=== PATIENT | female | born 1965 | race Caucasian/White ===

== ENCOUNTER 2024-07-26 19:26 | Emergency (ER) | payer MEDICAID, SELFPAY ==
--- NOTE | ~2024-07-26 | XR_ITS ---
CHEST RADIOGRAPH, PA AND LATERAL CLINICAL HISTORY: Cough wheezing x 1 day . COMPARISON: None available TECHNIQUE: PA and lateral views of the chest. FINDINGS The cardiomediastinal silhouette is unremarkable. 11 mm asymmetry within the right middle lobe for which cross-sectional imaging (noncontrast enhanced CT examination of the chest) is recommended for further evaluation. This may simply represent a calcified granuloma, however it is irregular in contour. The bilateral lung ibrahim are otherwise unremarkable. IMPRESSION: No focal infiltrate or effusion. 11 mm asymmetry within the right middle lobe for which cross-sectional imaging (noncontrast enhanced CT examination of the chest) is recommended for further evaluation. Reviewed, dictated and finalized at location A. IMPRESSION: No focal infiltrate or effusion. 11 mm asymmetry within the right middle lobe for which cross-sectional imaging (noncontrast enhanced CT examination of the chest) is recommended for further e valuation.
--- NOTE | 2024-07-26 19:28 | ED.URI ---
HPI - URI/Sore Throat General Chief Complaint: Upper Respiratory Infection Stated Complaint: cough/congestin Time Seen by Provider: 07/26/24 19:36 Source: patient, RN notes reviewed and old records reviewed Mode of arrival: ambulatory Limitations: no limitations History of Present Illness HPI Narrative: 59 presents the with complaints cough, congestion, shortness of breath since yesterday. History of asthma. Ex-smoker. States that she used her inhaler at 10:00 a.m. this morning. No other treatment prior to arrival Related Data Home Medications ?Medication ?Instructions ?Recorded ?Confirmed ?Last Taken ?Type albuterol sulfate 90 mcg/actuation inhalation 07/26/24 Unknown History aerosol inhaler aspirin 81 mg chewable tablet 07/26/24 Unknown History metformin 500 mg tablet,extended mg PO 07/26/24 Unknown History release 24 hr Allergies Allergy/AdvReac Type Severity Reaction Status Date / Time adhesive tape Allergy Unknown Unknown Verified 07/26/24 19:38 codeine Allergy Unknown Unknown Verified 07/26/24 19:38 diphenhydramine (From Allergy Unknown Unknown Verified 07/26/24 19:38 Benadryl) Review of Systems Review of Systems: All systems reviewed & are unremarkable except as noted in HPI and below Constitutional: Constitutional: Reports no additional constitutional complaints ENT: Reports system reviewed and no additional complaints, except as documented Cardiovascular: Cardiovascular: Reports no additional cardiovascular complaints, Denies chest pain and Denies dyspnea Respiratory: Respiratory: Reports as per HPI, Denies chest congestion, Reports cough, Reports dyspnea and Reports wheezing Musculoskeletal: Musculoskeletal: Reports no additional musculoskeletal complaints Integumentary/Breasts: Skin/Breast: Reports system reviewed and no additional complaints, except as docu PMFSH Comments At the time of my signature, I reviewed and agree with the nursing past medical, surgical, social, and family history. There is no relevant family history pertinent to the patient complaint. Exam Const: General: cooperative, healthy appearing, comfortable, no acute distress, well developed, alert and well nourished Nutritional Appearance: well nourished Orientation/consciousness: patient oriented x3 Limitations: no limitations HENMT: Head: normal to inspection Ears: hearing grossly normal bilaterally, external ears normal, TM's normal bilaterally, EAC's normal, mastoids normal and no periauricular adenopathy Eyes: General: appearance normal, both eyes and all related structures Alignment and Position: alignment normal Neck: Neck: normal visual inspection, full ROM, no lymphadenopathy and no meningeal signs Chest: Chest palpation & inspection: normal inspection of the chest Resp: Effort & Inspection: normal respiratory effort and able to speak in complete sentences Auscultation: no crackles, no rales, no rhonchi and wheezes expiratory wheezes and throughout Cardio: Rate: regular rate Skin: General skin exam: normal color and no rashes or lesions noted Neuro: General: patient oriented x3, gait normal, moves all extremities and no meningeal signs Cognition (Neuro): normal cognition Speech: normal speech Gait exam (Neuro): Normal gait present Extrem: General: normal to inspection, full ROM, capillary refill normal and normal gait Psych: Appearance: grossly normal and well kempt Mental Status: mental status grossly normal Speech and movement: Normal speech and movement present and Clear speech present Affect: normal affect Attitude: cooperative Course Course Emergency Course: x-ray done, breathing treatment done, improved saturation. patient breathing, coughing controlled after breathing treatment. States that she does feel better. Wheezing improved, now lung ibrahim are Mostly clear with mild expiratory wheezing throughout. Level of Care: Express Care Visit Vital Signs Vital signs: Vital Signs Temperature 97.8 F 07/26/24 19:41 Pulse Rate 108 H 07/26/24 19:41 Respiratory Rate 16 07/26/24 19:41 Blood Pressure 122/66 07/26/24 19:41 Pulse Oximetry 96 07/26/24 19:41 Oxygen Delivery Room Air 07/26/24 19:41 Temperature 97.8 F 07/26/24 19:41 Pulse Rate 98 07/26/24 20:18 Respiratory Rate 20 07/26/24 20:18 Blood Pressure 122/66 07/26/24 19:41 Pulse Oximetry 99 07/26/24 20:18 Oxygen Delivery Room Air 07/26/24 19:41 Reviewed MDM - URI/Sore Throat MDM Narrative Medical decision making narrative: Patient sitting in exam room. Cough, wheezing since yesterday. Did use her inhaler 1 time today. No other treatment prior to arrival denies fevers, chest pain. Patient with a history of asthma. Ex-smoker Patient with no acute findings. Incidental finding of a mass in the right lower lobe, explained to the patient that she needs close follow-up with primary for further evaluation, recommending a CT scan. We also discussed signs and symptoms of proceed to the emergency room which she verbalized understanding. Patient reports that she is out of nebulizer medication. Will prescribed as well as prednisone. Patient did receive her 1st dose of prednisone in clinic Discharge instructions reviewed with patient, as well as provided in writing per nursing staff. The instructions also include specific and strict return/GO TO THE ER as well as f/u information. All questions have been answered, and the patient deny any further questions with discharge and discharge plan. Some parts of this dictation were generated by voice recognition software and may contain typographical and/or grammatical inaccuracies. Differential Diagnosis Differential diagnosis: Likely upper respiratory infection, otitis media, sinusitis, viral infection and bronchitis Imaging Data Radiologist's impression: CHEST RADIOGRAPH, PA AND LATERAL CLINICAL HISTORY: Cough wheezing x 1 day . COMPARISON: None available TECHNIQUE: PA and lateral views of the chest. FINDINGS The cardiomediastinal silhouette is unremarkable. 11 mm asymmetry within the right middle lobe for which cross-sectional imaging (noncontrast enhanced CT examination of the chest) is recommended for further evaluation. This may simply represent a calcified granuloma, however it is irregular in contour. The bilateral lung ibrahim are otherwise unremarkable. IMPRESSION: No focal infiltrate or effusion. 11 mm asymmetry within the right middle lobe for which cross-sectional imaging (noncontrast enhanced CT examination of the chest) is recommended for further evaluation. Critical Care Time Critical Care Time Critical Care Time: No Discharge Plan Discharge Clinical Impression: Asthma exacerbation, Abnormal chest x-ray Patient Disposition: Home, Self-Care Condition: Stable Instructions: Antibiotic Form, Asthma (ED) Additional Instructions: Please follow-up with your primary care provider within the next 2-3 days. On x-ray it is recommended you follow-up and get a chest CT for an abnormal finding in the right lower lobe, concern for granuloma, scar tissue versus cancer. this needs to be further evaluated as soon as possible Patient Language: [place] Prescriptions: New albuterol sulfate 0.63 mg/3 mL solution for nebulization 0.63 mg inhalation Q6H Qty: 75 0RF prednisone 20 mg tablet See Rx Instructions .Route .COMPLEX Qty: 13 0RF Rx Instructions: Take 40 mg daily for 4 days, 20 mg daily for 5 days No Action aspirin 81 mg tablet,chewable albuterol sulfate 90 mcg/actuation HFA aerosol inhaler INHALATION metformin 500 mg tablet extended release 24 hr PO Follow-up/Referrals: UNKNOWN,DOCTOR [Non-Staff] - Stand Alone Forms: Work/School Release IP Time of Disposition: 20:28
--- OUTSIDE RECORDS SUMMARY | 2024-07-26 19:33 | XMS_ITS | Referral Summary ---
Author Organization [facility] Address [address] [place] [address] Care Team Providers Care Learn To Swim Instructor Name Role Phone Jose Yu MD Primary Care Provider [phone] Claudia Parisi DOUBLE CORNER CUTTER Unavailable Encounters Date Type Department Care Team Description 07/06/2024 Telephone [facility] Primary Care at [address] [place] [phone] Jose Yu MD HATTIE Questions 07/06/2024 Orders Only [facility] Cardiology [address] [place] [phone] Claudia Franklin 07/05/2024 7:27 PM CDT - 07/06/2024 3:34 PM CDT Emergency [facility] Acute Medicine [address] [place] [phone] Domenic Lucero MD Avagyan, Juletta, MD Sinha, Chandni, MD Chest pain, unspecified type (Primary Dx) Discharge Disposition: Discharge to home or self care 07/05/2024 1:52 PM CDT - 07/05/2024 11:59 PM CDT Hospital Encounter [facility] Emergency, Room R Discharge Disposition: Discharge to home or self care 06/02/2024 Telephone [facility] Primary Care at [address] [place] [phone] Jose uY MD 05/26/2024 3:11 PM MAINTENANCE APPRENTICE - 05/26/2024 11:59 PM MAINTENANCE APPRENTICE Hospital Encounter [facility] Imaging Center [address] [place] [address] History of nicotine use Discharge Disposition: Discharge to home or self care 05/26/2024 3:11 PM MAINTENANCE APPRENTICE - 05/26/2024 11:59 PM MAINTENANCE APPRENTICE Hospital Encounter [facility] Respiratory [address] [place] [address] Mild persistent asthma without complication Discharge Disposition: Discharge to home or self care 05/14/2024 [facility] Follow up phone call [facility] Surgery Care [address] [place] [address] Ne Johnson 05/10/2024 Telephone [facility] Primary Care at [place] [address] [facility] [address] [place] [phone] Jose Yu MD HATTIE Questions 05/08/2024 1:00 AM MAINTENANCE APPRENTICE - 05/10/2024 2:55 PM MAINTENANCE APPRENTICE Hospital Encounter [facility] IMU [address] [place] [address] Josefina Barnett MD [facility], DO Bre Porter Veronica O., MD Acute chest pain (Primary Dx); Newly diagnosed diabetes (HCC) Discharge Disposition: Discharge to home or self care from Last 3 Months Allergies Active Allergy Reactions Criticality Noted Date Comments Codeine Anaphylaxis High 03/20/2015 Difficulty breathing; swelling everwhere Diphenhydramine Hives Medium 03/20/2015 Other Rash Medium 02/09/2018 Adhesive from plastic tape, anesthesia time monitor; And red irritated skin Tramadol Swelling Medium Medications polyethylene glycol (MIRALAX) 17 gram/dose bulk powder Take 1-2 cap fulls nightly for constipation management. 595 g 3 03/06/20 23 Active metFORMIN XR (GLUCOPHAGE XR) 500 mg 24 hr tabletIndicati ons:Newly diagnosed diabetes (HCC) Take 2 tablets (1,000 mg total) by mouth 2 (two) times a day 360 tablet 1 06/30/19 24 Active blood-glucose meter kit 1 kit 2 (two) times a day 1 kit 11/25/19 24 Active blood glucose diagnostic (glucose blood) strip Use on test strip when checking blood glucose levels 100 each 11 11/25/19 24 025 Active OneTouch Delica Plus Lancet 33 gauge misc Inject 1 Lancet into the skin daily 100 each 1 11/25/19 24 Active budesonide-for moteroL (SYMBICORT) 80-4.5 mcg/actuation inhaler Inhale 2 puffs 2 (two) times a day Rinse mouth with water after use. Do not swallow. 3 each 3 03/01/20 24 Active albuterol HFA (PROVENTIL HFA,VENTOLIN HFA,PROAIR HFA) 90 mcg/actuation inhaler Inhale 1-2 puffs every 4 (four) hours as needed for wheezing or shortness of breath 1 each 03/01/20 24 Active empagliflozin (Jardiance) 25 mg tablet Take 1 tablet (25 mg total) by mouth daily 30 tablet 05/10/19 25 Active atorvastatin (LIPITOR) 40 mg tablet Take 1 tablet (40 mg total) by mouth daily 30 tablet 1 05/10/[address] (CYMBALTA) 20 mg capsule Take 1 capsule (20 mg total) by mouth 2 (two) times a day 120 capsule 05/10/19 25 Active montelukast (SINGULAIR) 10 mg tablet Take 1 tablet (10 mg total) by mouth nightly 30 tablet 1 05/10/19 25 Active aspirin 81 mg chewable tablet Take 1 tablet (81 mg total) by mouth daily 30 tablet 1 05/11/19 25 Active omeprazole (PriLOSEC) 40 mg capsule Take 1 capsule (40 mg total) by mouth daily 30 capsule 05/10/19 25 Active lidocaine (LIDODERM) 5 %Indications:T orticollis, acute Place 1 patch on the skin daily Apply over area of maximal intensity pain. Remove & discard patch within 12 hours or as directed by . Collaborating physician Baldomero Wilkinson MD 30 patch 06/30/19 24 025 Discontin ued(Stop Taking at Discharge ) OneTouch Ultra2 Meter misc USE TO CHECK GLUCOSE TWICE DAILY 11/25/19 24 025 Discontin ued(Stop Taking at Discharge ) Active Problems Problem Noted Date Diagnosed Date Chest pain, unspecified type 07/05/2024 Acute chest pain 05/08/2024 Left sided numbness 09/24/2023 Diabetic ketoacidosis associ ated with type 2 diabetes mellitus 09/20/2023 Primary hypertension 09/20/2023 Sinus tachycardia 09/20/2023 Hyperlipidemia associated with type 2 diabetes m ellitus 09/20/2023 Assessment & Plan (03/01/2024 1:11 PM MAINTENANCE APPRENTICE): Lab Results Component Value Date CHOL 123 09/24/2023 CHOL 140 07/18/2023 CHOL 181 07/01/2023 Lab Results Component Value Date HDL 54 09/24/2023 HDL 53 07/18/2023 HDL 53 07/01/2023 Lab Results Component Value Date LDLCALC 56 09/24/2023 LDLCALC 71 07/18/2023 LDLCALC 110 07/01/2023 Lab Results Component Value Date TRIG 63 09/24/2023 TRIG 81 07/18/2023 TRIG 92 07/01/2023 No results found for: POCCHDLR No results found for: POCNONHDL No results found for: POCCHLPL Recheck lipid panel now with tsh Moderate persistent asthma with exacerbation Neurological deficit, transient 07/19/2023 Cerebrovascular accident (CV A) due to embolism of precerebral artery 07/19/2023 Cervical spinal stenosis 07/18/2023 Class 2 obesity due to exces s calories with body mass index (BMI) of 35.0 to 35.9 in adult 06/30/2023 Assessment & Plan (03/01/2024 1:12 PM MAINTENANCE APPRENTICE): Wt Readings from Last 3 Encounters: 03/01/24 74.9 kg (165 lb 1.6 oz) 09/24/23 72.6 kg (160 lb 0.9 oz) 09/24/23 72.6 kg (160 lb 0.9 oz) BMI Readings from Last 3 Encounters: 03/01/24 35.72 kg/m 09/24/23 34.64 kg/m 09/24/23 34.64 kg/m Not at goal of bmi <30 Continue diet and exercise BMI Follow-up includes: nutrition counseling and exercise counseling. Assessment & Plan (07/18/2023 3:25 AM CDT): Body mass index is 35.05 kg/m . - nutrition consultation Assessment & Plan (06/30/2023 4:13 PM MAINTENANCE APPRENTICE): Wt Readings from Last 3 Encounters: 06/30/23 73.9 kg (162 lb 14.4 oz) 06/26/23 71.7 kg (158 lb) 06/25/23 71.7 kg (158 lb) BMI Readings from Last 3 Encounters: 06/30/23 35.24 kg/m 06/26/23 34.19 kg/m 06/25/23 34.19 kg/m Not at goal of bmi <30 Continue diet and exercise BMI Follow-up includes: nutrition counseling and exercise counseling. Morbid obesity 06/30/2023 Irritable bowel syndrome with constipation 03/06 History of chronic gastritis 03/06/2023 History of gastric ulcer 03/06/2023 History of colonoscopy with polypectomy 03/04/20 Depression 11/22/2022 Assessment & Plan (07/18/2023 3:20 AM CDT): We will continue patient's duloxetine 20 mg daily. Acute asthma exacerbation 11/21/2022 Assessment & Plan (12/31/2022 1:23 PM CDT): Less likely asthma exacerbation Not much improvement with albuterol/symbicort Will evaluate from cardiac perspective Posisble hx of chf If normal may need pulm eval Torticollis, acute 10/05/2022 Type 2 diabetes mellitus with hyperlipidemia Assessment & Plan (03/01/2024 1:13 PM MAINTENANCE APPRENTICE): Lab Results Component Value Date HGBA1C 8.3 03/01/2024 HGBA1C 7.5 (H) 09/24/2023 HGBA1C 7.7 06/30/2023 Lab Results Component Value Date LDLCALC 56 09/24/2023 CREATININE 0.75 09/26/2023 Continue current regimen Increase jardiance to 25 mg every day Assessment & Plan (07/18/2023 3:18 AM CDT): Last HbA1c: 7.7; BG 140's - Pt placed on SSI - Lantus dose none - DM educator consulted - diet and nutrition discused w/ pt. Stressed importance of exercise - DM complications present on admission: HLD, CAD, cardiomyopathy Assessment & Plan (06/30/2023 4:16 PM MAINTENANCE APPRENTICE): Lab Results Component Value Date HGBA1C 7.7 06/30/2023 HGBA1C 7.1 (H) 12/26/2022 HGBA1C 7.1 06/13/2022 Lab Results Component Value Date LDLCALC 99 03/18/2022 CREATININE 0.69 06/25/2023 Not at goal at this time - worsening Continue jardiance 10 mg every day, increase metformin to 1000 mg bid 24hr tabs Likely some issues with compliance Last metformin refill was 05/2022 and 02/2023 Assessment & Plan (01/16/2023 8:28 AM CDT): Lab Results Component Value Date HGBA1C 7.1 (H) 12/26/2022 HGBA1C 7.1 06/13/2022 HGBA1C 6.8 (H) 03/18/2022 Lab Results Component Value Date LDLCALC 99 03/18/2022 CREATININE 0.80 01/07/2023 Not at goal at this time Continue jardiance 10 mg every day, metformin 500 mg bid 24hr tabs Assessment & Plan (12/31/2022 1:16 PM CDT): Lab Results Component Value Date HGBA1C 7.1 (H) 12/26/2022 HGBA1C 7.1 06/13/2022 HGBA1C 6.8 (H) 03/18/2022 Lab Results Component Value Date LDLCALC 99 03/18/2022 CREATININE 0.85 12/26/2022 Not at goal at this time Elevated finger stick today in the office Assessment & Plan (06/13/2022 1:21 PM MAINTENANCE APPRENTICE): Lab Results Component Value Date HGBA1C 6.8 (H) 03/18/2022 Lab Results Component Value Date LDLCALC 99 03/18/2022 CREATININE 0.75 05/12/2022 Recheck a1c today - continue metformin 500 mg xr for now Mild persistent asthma without complication 02/26 Assessment & Plan (07/18/2023 3:19 AM CDT): Patient not on any inhaler medications at this time, feels well-controlled. Sensorineural hearing loss (SNHL) of both ears 0 07/02/2021 Assessment & Plan (07/02/2021 1:56 PM MAINTENANCE APPRENTICE): Hearing test - [facility] Coronary artery disease of n ative artery of [place] heart with stable angina pectoris 08/30/2020 Assessment & Plan (07/18/2023 3:25 AM CDT): Last TTE done on 12/2022 showed EF of 67; CXR showed mild atelectasis versus infiltrates noted; ECG: Normal. No history or signs of atrial fibrillation. In 2017 coronary angiography was performed, mild nonischemic cardiomyopathy was noted at that time with an ejection fraction 40%. It is suspected that microvascular angina was secondary to the cardiomyopathy. - Medications: Patient is only taking diabetic medications such as Jardiance, metoprolol, and pain medications such as meloxicam and cyclobenzaprine - monitoring I/O's - Pt on telemetry at this time - medically maximize patient, aspirin 81 mg, Lipitor 80 mg, metoprolol XL 25 mg daily, continue Jardiance and metformin at discharge. Assessment & Plan (06/30/2023 4:04 PM MAINTENANCE APPRENTICE): Continue ASA, cardio follow up Former tobacco use 08/30/2020 Assessment & Plan (07/18/2023 3:19 AM CDT): Twenty-five pack year history, quit in 2018. Assessment & Plan (03/13/2022 12:37 PM MAINTENANCE APPRENTICE): Discussed smoking cessatin - pt ready to quit. Will start lexapro today for depression and may need to add wellbutrin as well for smoking cessation in the fuiture Dilated cardiomyopathy 08/30/2020 Assessment & Plan (07/18/2023 3:19 AM CDT): Continue as planned under coronary artery disease. Assessment & Plan (06/30/2023 4:05 PM MAINTENANCE APPRENTICE): Normal TTE recently CONCLUSIONS: Normal left ventricular size. Normal left ventricular wall thickness. Normal left ventricular diastolic function. Ejection fraction is measured at 67 %. Normal Doppler with normal valvular structure and function. Assessment & Plan (01/16/2023 8:29 AM CDT): Normal TTE recently CONCLUSIONS: Normal left ventricular size. Normal left ventricular wall thickness. Normal left ventricular diastolic function. Ejection fraction is measured at 67 %. Normal Doppler with normal valvular structure and function. Assessment & Plan (03/13/2022 12:39 PM MAINTENANCE APPRENTICE): Unsure accuracy of this dx - was following with cardio - normal echo, cardio said to come back in 1 year, would have been due 6 months a go but as per last cardio note, no concerns Resolved Problems Problem Noted Date Diagnosed Date Resolved Date Physical exam, annual 06/30/20232023 Slow transit constipation 03/06/2023 Elevated alkaline phosphatase level 03/06/2023 07/18/2023 Pharyngoesophageal dysphagia 03/06/2023 07/18/2023 Generalized abdominal pain 03/06/2023 0 07/18/2023 Family history of colon cancer 01/07/2023 07/18/2023 Personal history of colonic polyps 01/07/2023 07/18/2023 Encounter for screening colonoscopy 01/07/2023 07/18/2023 Pneumonia due to infectious organism, unspecified laterality, unspecified part of lung 12/26/2022 07/18/2023 Community acquired pneumonia of left lower lobe of lung 12/26/2022 07/18/2023 Asthma exacerbation 11/21/2022 07/18/19 Acute bronchitis 11/21/2022 07/18/2023 Musculoskeletal chest pain 11/20/2022 0 07/18/2023 Tenderness of back 06/13/2022 Current mild episode of beatrice r depressive disorder 03/13/2022 07/18/2023 Assessment & Plan (03/13/2022 12:38 PM MAINTENANCE APPRENTICE): Patient reiterated no suicidal thoughts at this time; take medication as directed; contact 911 and go to the ER if becomes suicidal; discussed side effects of medication with patient; encouraged healthy diet and exericise; encouraged patient to see a counselor Will restart er on lexapro was previously on 5, will increase to 10- mg now and have her follow up in 3 months Snoring 03/13/2022 07/18/2023 Assessment & Plan (03/13/2022 12:39 PM MAINTENANCE APPRENTICE): Should call Dr. Clifton's office back for follow up Chronic maxillary sinusitis 07/02/2021 07/18/2023 Assessment & Plan (07/02/2021 1:53 PM MAINTENANCE APPRENTICE): Doxycycline twice daily for 10 days Flonase 2 sprays into each nostril while looking down over the sink, do not sniff in or blow nose after use for at least 30 minutes daily Otalgia of right ear 07/02/2021 024 Assessment & Plan (07/02/2021 1:53 PM MAINTENANCE APPRENTICE): Doxycycline twice daily for 10 days Flonase 2 sprays into each nostril while looking down over the sink, do not sniff in or blow nose after use for at least 30 minutes daily Dental contact information provided TMJ discussed and Handout provided Chest discomfort 08/30/2020 07/18/2023 Primary osteoarthritis of right knee 08/22/2020 07/18/2023 Immunizations Immunization Administration Dates Next Due Influenza, Quadrivalent, Spl it, Intramuscular 02/06/2015 Influenza, Quadrivalent, Spl it, Preservative Free, Intramuscular 01/16/2023,01/26/2018 Influenza, Unspecified 02/14/2022,2021(Deferred: Patient Refused),06/26/2021(Deferred: Patient Refused) Moderna SARS-CoV-2 Monovalen t Vaccination (12+ YRS) 08/01/2020,06/14/2020 Tdap 02/20/2015 Social History Tobacco Use Types Packs/Day Years Used Date Smoking Tobacco: Former Cigarettes 1 25 0 09/03/1992 - 09/03/2017 Smokeless Tobacco: Never Tobacco Cessation:Counseling Given: Not Answered Alcohol Use Standard Drinks/Week Comments Never 0 (1 standard drink = 0.6 oz pur e alcohol) [facility] Utilities Answer Date Recorded In the past 12 months has e electric, gas, oil, or water company threatened to shut off services in your home? No 09/25/2023 Social Connection and Isolat ion Panel [NHANES] Answer Date Recorded In a typical week, how many times do you talk on the phone with family, friends, or neighbors? More than three times a week 09/25/2023 How often do you get togethe r with friends or relatives? Three times a week 09/25/2023 How often do you attend chur ch or christian services? Never 09/25/2023 Do you belong to any clubs o r organizations such as confucianism groups, unions, fraternal or athletic groups, or school groups? No 09/25/2023 How often do you attend meet ings of the clubs or organizations you belong to? Never 09/25/2023 Are you , , di vorced, , never , or living with a partner? Living with partner 09/25/2023 AUDIT-C Answer Date Recorded Q1: How often do you have a drink containing alcohol? Never 07/05/2024 Q2: How many drinks containi ng alcohol do you have on a typical day when you are drinking? Patient does not drink Q3: How often do you have si x or more drinks on one occasion? Never 07/05/2024 Overall Financial Resource Strain (CARDIA) Answe r Date Recorded How hard is it for you to pa y for the very basics like food, housing, medical care, and heating? Not hard at all 09/25/2023 PHQ-2 Answer Date Recorded PHQ-2 Total Score (If total score is 3 or more points, staff should administer the PHQ-9) 0 03/01/2024 Hunger Vital Sign Answer Date Recorded Within the past 12 months, y ou worried that your food would run out before you got the money to buy more. Never true 09/25/19 24 Within the past 12 months, t he food you bought just didn't last and you didn't have money to get more. Never true 09/25/2023 PRAPARE - Transportation Answer Date Re corded In the past 12 months, has l ack of transportation kept you from medical appointments or from getting medications? No 08/28 In the past 12 months, has l ack of transportation kept you from meetings, work, or from getting things needed for daily living? No 09/25/2023 Housing Stability Vital Sign Answer Gonzalo e Recorded In the last 12 months, was t here a time when you were not able to pay the mortgage or rent on time? No 07/18/2023 In the last 12 months, how many places have you lived? 2 07/18/2023 In the last 12 months, was t here a time when you did not have a steady place to sleep or slept in a half-way (including now)? No 07/18/2023 Housing Stability Vital Sign Answer Gonzalo e Recorded In the last 12 months, was t here a time when you were not able to pay the mortgage or rent on time? No 09/25/2023 In the past 12 months, how m any times have you moved where you were living? 0 09/25/2023 At any time in the past 12 m [facility], were you homeless or living in a half-way (including now)? No 09/25/2023 Personal Safety Answer Date Recorded Have you ever been in or are you currently in a harmful physical or emotional relationship or is someone making you feel afraid or unsafe? Denies 07/05/2024 Education Answer Date Recorded What is the highest level of school you have completed or the highest degree you have received? Some college, no degree 05/10/2024 Comments No Sex and Gender Information Value Date Recorded Sex Assigned at Not on file Legal Sex Female 3:43 AM MAINTENANCE APPRENTICE Gender Identity Not on file Sexual Orientation Not on file Last Filed Vital Signs Vital Sign Reading Time Taken Comments Blood Pressure 108/55 07/06/2024 12:21 PM CDT Pulse 58 07/06/2024 12:21 PM CDT Temperature 36.4 C (97.5 F) 07/06/2024 12:21 PM CDT Respiratory Rate 17 07/06/2024 12:21 PM CDT Oxygen Saturation 95% 07/06/2024 12:21 PM CDT Inhaled Oxygen Concentration - - Weight 77 kg (169 lb 12.1 oz) 07/05/2024 11:39 P M CDT Height 144.8 cm (4' 9 ) 07/05/2024 11:39 PM CDT Body Mass Index 36.73 07/05/2024 11:39 PM CDT Plan of Treatment Not on file Procedures Procedure Name Priority Date/Time Associated Diagnosis Comments POCT GLUCOSE DEVICE Routine 07/06/2024 12:57 PM CDT STRESS TEST FOR DUAL READ IP Routine 07/06/2024 11:50 AM CDT NM MPI SPECT (REST AND/OR STRESS) MULTIPLE STUDIES IP Routine 07/06/2024 11:50 AM CDT TROPONIN T HIGH-SENSITIVITY 6-HOUR Timed 07/06/2024 2:18 AM CDT TROPONIN T HIGH-SENSITIVITY 4-HR Timed 07/06/2024 12:08 AM CDT TROPONIN T HIGH-SENSITIVITY 2-HOUR Timed 07/05/2024 9:10 PM CDT ECG 12-LEAD Routine 07/05/2024 8:50 PM CDT XR CHEST 1 VIEW ED 07/05/2024 7:59 PM CDT ECG 12-LEAD STAT 07/05/2024 7:40 PM CDT EGFR STAT 07/05/2024 7:35 PM CDT LIPASE STAT 07/05/2024 7:35 PM CDT DIFFERENTIAL AUTO STAT 07/05/2024 7:3 5 PM CDT TROPONIN T HIGH-SENSITIVITY SERIES (BASELINE, 2HR, 4HR, 6HR) Routine 07/05/2024 7:35 PM CDT PROTIME-INR STAT 07/05/2024 7:35 PM CDT PRO B-TYPE NATRIURETIC PEPTIDE STAT 07/05/2024 7:35 PM CDT MAGNESIUM Routine 07/05/2024 7:35 PM CDT D-DIMER, QUANTITATIVE STAT 07/05/2024 7:35 PM CDT COMPREHENSIVE METABOLIC PANEL STAT 07/05/2024 7:35 PM CDT CBC WITH AUTO DIFFERENTIAL STAT 07/05/2024 7:35 PM CDT APTT STAT 07/05/2024 7:[address] LUNG CANCER SCREENING Schedule Routine, Read Routine (OP Routine) 05/26/2024 4:39 PM MAINTENANCE APPRENTICE History of nicotine use PULMONARY FUNCTION TEST (PFT) Routine 05/26/2024 4:05 PM MAINTENANCE APPRENTICE Mild persistent asthma without complication POCT GLUCOSE DEVICE Routine 05/10/2024 12:30 PM MAINTENANCE APPRENTICE POCT GLUCOSE DEVICE Routine 05/10/2024 8 :26 AM MAINTENANCE APPRENTICE POCT GLUCOSE DEVICE Routine 05/10/2024 2 :29 AM MAINTENANCE APPRENTICE POCT GLUCOSE DEVICE Routine 05/09/2024 8 :51 PM MAINTENANCE APPRENTICE POCT GLUCOSE DEVICE Routine 05/09/2024 5 :07 PM MAINTENANCE APPRENTICE XR CHEST 1 VIEW IP Routine 05/09/2024 3:48 PM MAINTENANCE APPRENTICE POCT GLUCOSE DEVICE Routine 05/09/2024 12:17 PM MAINTENANCE APPRENTICE POCT GLUCOSE DEVICE Routine 05/09/2024 8 :02 AM MAINTENANCE APPRENTICE EGFR Routine 05/09/2024 7:33 AM MAINTENANCE APPRENTICE DIFFERENTIAL AUTO Routine 05/09/2024 7:3 3 AM MAINTENANCE APPRENTICE COMPREHENSIVE METABOLIC PANEL Routine 05/09/2024 7:33 AM MAINTENANCE APPRENTICE CBC WITH AUTO DIFFERENTIAL Routine 05/09/2024 7:33 AM MAINTENANCE APPRENTICE POCT GLUCOSE DEVICE Routine 05/09/2024 2 :52 AM MAINTENANCE APPRENTICE POCT GLUCOSE DEVICE Routine 05/08/2024 8 :47 PM MAINTENANCE APPRENTICE POCT GLUCOSE DEVICE Routine 05/08/2024 4 :59 PM MAINTENANCE APPRENTICE POCT GLUCOSE DEVICE Routine 05/08/2024 12:03 PM MAINTENANCE APPRENTICE D-DIMER, QUANTITATIVE Routine 05/08/2024 9:25 AM MAINTENANCE APPRENTICE INFLUENZA A/B, RSV, AND COVID-19 PCR Routine 05/08/2024 8:53 AM MAINTENANCE APPRENTICE POCT GLUCOSE DEVICE Routine 05/08/2024 8 :08 AM MAINTENANCE APPRENTICE TROPONIN T HIGH-SENSITIVITY 6-HOUR Timed 05/08/2024 8:03 AM MAINTENANCE APPRENTICE TROPONIN T HIGH-SENSITIVITY 4-HR Timed 05/08/2024 5:45 AM MAINTENANCE APPRENTICE TROPONIN T HIGH-SENSITIVITY 2-HOUR Timed 05/08/2024 3:34 AM MAINTENANCE APPRENTICE EGFR STAT 05/08/2024 1:28 AM MAINTENANCE APPRENTICE PRO B-TYPE NATRIURETIC PEPTIDE Add-On 05/08/2024 1:28 AM MAINTENANCE APPRENTICE DIFFERENTIAL AUTO STAT 05/08/2024 1:2 8 AM MAINTENANCE APPRENTICE TROPONIN T HIGH-SENSITIVITY SERIES (BASELINE, 2HR, 4HR, 6HR) STAT 05/08/2024 1:28 AM MAINTENANCE APPRENTICE COMPREHENSIVE METABOLIC PANEL STAT 05/08/2024 1:28 AM MAINTENANCE APPRENTICE CBC WITH AUTO DIFFERENTIAL STAT 05/08/2024 1:28 AM MAINTENANCE APPRENTICE XR CHEST PA LATERAL 2 VIEWS ED 05/08/2024 1:04 AM MAINTENANCE APPRENTICE ECG 12-LEAD STAT 05/08/2024 12:53 AM MAINTENANCE APPRENTICE POCT HEMOGLOBIN A1C Routine 03/01/2024 1 :08 PM MAINTENANCE APPRENTICE Type 2 diabetes mellitus with hyperlipidemia (HCC) LIPID PANEL Routine 09/24/2023 5:49 AM CDT HEPATITIS PANEL, ACUTE Routine 07/01/2023 11:14 AM MAINTENANCE APPRENTICE Elevated alkaline phosphatase level ALBUMIN CREATININE RATIO, URINE Routine 06/30/2023 12:00 AM MAINTENANCE APPRENTICE Type 2 diabetes mellitus with hyperlipidemia (HCC) COLONOSCOPY 02/26/2023 12:07 PM CDT from Last 3 Months or Most Recently Relevant to Health Maintenance Results * (ABNORMAL) POCT glucose (07/06/2024 12:57 PM CDT) Glucose, POC 203(H) 70 - 199 mg/dL Blood 07/06/2024 12:5 7 PM CDT 07/06/2024 12:57 PM CDT us Leanna Daniels MD LAB POCT ORDERABLES - DEVICE Fi nal Result [facility] ([place]) [facility] [place] [address] * NM MPI SPECT (Rest and/or Stress) Multiple Studies (07/06/2024 11:50 AM CDT) Anatomical Region Laterality Modality Body N/A Nuclear Medicine 07/06/2024 12:1 0 PM CDT Narrative 07/06/2024 12:12 PM CDT EXAM DESCRIPTION: NM MPI SPECT (REST AND/OR STRESS) MULTIPLE STUDIES REASON FOR STUDY: Ischemic symptoms, prior ECG (abnormal) RADIOPHARMACEUTICAL: Rest: 11 mCi Tc-99m tetrofosmin via a right arm IV site. Stress: 30.4 mCi Tc-99m tetrofosmin via a right arm IV site. TECHNIQUE: Standard myocardial perfusion SPECT images were obtained after resting tracer injection. Subsequently, an intravenous infusion of 0.4 mg Lexiscan was performed. Standard myocardial perfusion SPECT images were obtained after tracer injection at the peak effect of the drug. COMPARISON: None. FINDINGS: Image quality is adequate at rest and adequate at stress. There are no perfusion abnormalities. The left ventricular cavity size is normal. Gated tomographic images demonstrate normal wall motion and wall thickening with a left ventricular ejection fraction of 77% poststress (normal >45%). IMPRESSION: 1. Normal myocardial perfusion. 2. No scintigraphic evidence of myocardial ischemia. 3. Normal left ventricular ejection fraction poststress. 4. Normal left ventricular wall motion. THIS IS AN ELECTRONICALLY VERIFIED FINAL REPORT 07/06/2024 12:12 PM - Electronically signed by Sukumar Pena M.D. CH: LIZ Report ID: [id number] Reading Location: [id number] Procedure Note Sukumar Pena Jr., MD - 07/06/2024 EXAM DESCRIPTION: NM MPI SPECT (REST AND/OR STRESS) MULTIPLE STUDIES REASON FOR STUDY: Ischemic symptoms, prior ECG (abnormal) RADIOPHARMACEUTICAL: Rest: 11 mCi Tc-99m tetrofosmin via a right armIV site. Stress: 30.4 mCi Tc-99m tetrofosmin via a right arm IV site. TECHNIQUE: Standard myocardial perfusion SPECT images were obtained after resting tracer injection. Subsequently, an intravenous infusion of 0.4mg Lexiscan was performed. Standard myocardial perfusion SPECT images were obtained after tracer injection at the peak effect of the drug. COMPARISON: None. FINDINGS: Image quality is adequate at rest and adequate at stress. There are no perfusion abnormalities. The left ventricular cavity size is normal. Gated tomographic images demonstrate normal wall motion and wallthickening with a left ventricular ejection fraction of 77% poststress (normal >45%). IMPRESSION: 1. Normal myocardial perfusion. 2. No scintigraphic evidence of myocardial ischemia. 3. Normal left ventricular ejection fraction poststress. 4. Normal left ventricular wall motion. THIS IS AN ELECTRONICALLY VERIFIED FINAL REPORT 07/06/2024 12:12 PM - Electronically signed by Sukumar Pena M.D. CH: LIZ Report ID: [id number] Reading Location: [id number] Heaven Quispe MD IMG HI PROCEDURES Final Resul t * Stress Test for Myocardial Perfusion (07/06/2024 11:50 AM CDT) Anatomical Region Laterality Modality Nuclear Medicine 07/06/2024 6:35 AM CDT Narrative 07/06/2024 2:05 [place] [address] LexiscIdea Device Report Patient Name: JACINTA SAM : 1965 Study Date: 07/06/2024 6:35:00 AM Gender: F Tech: claudia franklin Location: [id number] Ref Provider: HEAVEN QUISPE Height(Cm): 152 BSA: 2.59 Weight(Kg): 158 Heart Rate: 139 Order Provider: HEAVEN QUISPE PROCEDURES: Pharmacologic SPECT Report.: Myocardial perfusion imaging with Sestamibi SPECT at rest and post regadenoson (Lexiscan) infusion. INDICATIONS: Chest Pain. FINDINGS: Procedure Data: Resting HR 61 bpm Peak HR: 98 bpm Predicted Maximal HR 163 bpm Target HR: 139 bpm Percent Max Predicted HR Achieved: 60.12 % Baseline BP: 107/54 mmHg Peak BP: 101/52 mmHg Exercise Time: 00:16 Medications: Medications None, aspirin, bumex, capoten, cardura, carvedilol (Coreg), clonidine, coumadin, cozaar, digoxin, diltiazem, diovan, hydrochlorothiazide, hytrin, isordil, lasix, lipitor, metoprolol, multaq, niacin, norvasc, potassium, pravachol, procardia, propanolol, rythmol, simvastatin, toprol, trandate, vasotec, verapamil, zaroxolyn, zocor and free text. Performed By: Supervising Physician: The Supervising Physician is jose elias. Reason for Termination: Lexiscan protocol complete. Resting ECG: Normal sinus rhythm. Nonspecific T wave abnormality. Post Pharm ECG: No diagnostic ST changes. Arrhythmia: No arrhythmias seen. CONCLUSIONS: 1. Negative Lexiscan pharmacologic stress test for chest pain or EKG changes. 2. Nuclear images are pending and they will be reported separately. Electronically Signed By: Chayito Groves MD 07/06/2024 1:35:20 PM CDT Procedure Note Chayito Groves MD - 07/06/[address] [address] Lexiscan Report Patient Name: JACINTA SAM : 1965 Study Date: 07/06/2024 6:35:00 AM Gender: F Tech: claudia franklin Location: [id number] Ref Provider: HEAVEN QUISPE Height(Cm): 152 BSA: 2.59 Weight(Kg): 158 Heart Rate: 139 Order Provider: HEAVEN QUISPE PROCEDURES: Pharmacologic SPECT Report.: Myocardial perfusion imaging with Sestamibi SPECT at rest and postregadenoson (Lexiscan) infusion. INDICATIONS: Chest Pain. FINDINGS: Procedure Data: Resting HR 61 bpm Peak HR: 98 bpm Predicted Maximal HR 163 bpm Target HR: 139 bpm Percent Max Predicted HR Achieved: 60.12 % Baseline BP: 107/54 mmHg Peak BP: 101/52 mmHg Exercise Time: 00:16 Medications: Medications None, aspirin, bumex, capoten, cardura, carvedilol (Coreg),clonidine, coumadin, cozaar, digoxin, diltiazem, diovan, hydrochlorothiazide, hytrin,isordil, lasix, lipitor, metoprolol, multaq, niacin, norvasc, potassium, pravachol,procardia, propanolol, rythmol, simvastatin, toprol, trandate, vasotec, verapamil,zaroxolyn, zocor and free text. Performed By: Supervising Physician: The Supervising Physician is jose elias. Reason for Termination: Lexiscan protocol complete. Resting ECG: Normal sinus rhythm. Nonspecific T wave abnormality. Post Pharm ECG: No diagnostic ST changes. Arrhythmia: No arrhythmias seen. CONCLUSIONS: 1. Negative Lexiscan pharmacologic stress test for chest pain or EKGchanges. 2. Nuclear images are pending and they will be reported separately. Electronically Signed By: Chayito Groves MD 07/06/2024 1:35:20 PM CDT us Heaven Quispe MD CV STRESS PROCEDURES Final Re sult * Troponin T high-sensitivity 6-hour (07/06/2024 2:18 AM CDT) Trop T hs <6 <=14 ng/L Comment: Interpretive Data For further hscTnT resources including the diagnostic algorithm and an aid in interpretation, copy and paste this link: https://nrl.Trunity.org/show/hsTrop Current Interpretive Data last revised 2020. Trop T hs delta 0 ng/L [facility] ([place]) Trop T hs interp Insignificant [facility] ([place]) Blood 07/06/2024 2:18 AM CDT 07/06/2024 3:17 AM CDT Domenic Lucero MD LAB BLOOD ORDERABLES Final R esult Performing Organization Address [facility] Co de Phone Number [facility] ([place]) 1 [facility] [employer] [address] * Troponin T high-sensitivity 4-hour (07/06/2024 12:08 AM CDT) Trop T hs <6 <=14 ng/L Comment: Interpretive Data For further hscTnT resources including the diagnostic algorithm and an aid in interpretation, copy and paste this link: https://nrl.Trunity.org/show/hsTrop Current Interpretive Data last revised 2020. Trop T hs delta 0 ng/L [facility] ([place]) Trop T hs interp Insignificant [facility] ([place]) Blood 07/06/2024 12:0 8 AM CDT 07/06/2024 12:21 AM CDT Domenic Lucero MD LAB BLOOD ORDERABLES Final R esult Performing Organization Address City/[facility]/ZIP Co de Phone Number [facility] ([place]) 1 [facility] [employer] [address] * Troponin T high-sensitivity 2-hour (07/05/2024 9:10 PM CDT) Trop T hs <6 <=14 ng/L Comment: Interpretive Data For further hscTnT resources including the diagnostic algorithm and an aid in interpretation, copy and paste this link: https://nrl.testCellvine.org/show/hsTrop Current Interpretive Data last revised 2020. Trop T hs delta 0 ng/L [facility] ([place]) Trop T hs interp Insignificant [facility] ([place]) Blood 07/05/2024 9:10 PM CDT 07/05/2024 9:13 PM CDT Domenic Lucero MD LAB BLOOD ORDERABLES Final R esult Performing Organization Address City/[facility] Co de Phone Number [facility] ([place]) 1 [facility] [place] [address] * ECG 12 lead (07/05/2024 8:50 PM CDT) 07/05/2024 8:50 PM CDT Narrative [facility] 07/06/2024 7:27 AM CDT Vent Rate: 89 bpm RR Interval: 674 msec [place] Interval: 150 msec QRS Duration: 101 msec QT Interval: 363 msec QTC Interval: 409 msec P-R-T [place]: 12 - -43 - 16 degrees IMPRESSION: SINUS RHYTHM POSSIBLE RIGHT VENTRICULAR CONDUCTION DELAY [RSR (QR) IN V1/V2] INFERIOR MYOCARDIAL INFARCTION , PROBABLY OLD WITH POSTERIOR EXTENSION [40+ ms Q WAVE AND/OR ST/T ABNORMALITY IN II/aVFPROMINE WAVE IN V1/V2] ABNORMAL ECG NO CHANGE FROM PREVIOUS TRACING NOTED Electronically Signed By: Yon Vincent MD Domenic Lucero MD ECG ORDERABLES Final Result Performing Organization Address [facility] Co de Phone Number [facility] * XR Chest 1 View (07/05/2024 7:59 PM CDT) Anatomical Region Laterality Modality Body, Chest N/A Computed Radiogr aphy 07/05/2024 8:3 4 PM CDT Narrative 07/05/2024 8:36 PM CDT EXAM DESCRIPTION: XR CHEST 1 VIEW REASON FOR STUDY: chest pain Pt arrives via EMS from home with complaints of chest pain since 1845. Pt is has chest pain radiating down both arms with tingling in both arms. BG 215. Received 4 asprin and 200ml LR bolus in route. Hx of cardiac stents and diabetic. AO4 on arrival. TECHNIQUE: Portable upright AP view of the chest. COMPARISON: 05/09/2024 FINDINGS: LUNGS AND PLEURA: No focal opacity, large effusion, or pneumothorax identified. Calcified right base nodule unchanged. HEART/MEDIASTINUM: Trachea midline. Cardiac silhouette normal in size. Mediastinal contours appear normal. BONES: Unremarkable. CHEST WALL: Unremarkable. UPPER ABDOMEN: Unremarkable. IMPRESSION: No acute abnormality identified. THIS IS AN ELECTRONICALLY VERIFIED FINAL REPORT 07/05/2024 8:36 PM - Electronically signed by Phillip Peace M.D. AR: MANASA Report ID: [id number] Reading Location: [id number] Procedure Note Phillip Peace MD - 07/05/2024 EXAM DESCRIPTION: XR CHEST 1 VIEW REASON FOR STUDY: chest pain Pt arrives via EMS from home with complaints of chest pain since 1845.Pt is has chest pain radiating down both arms with tingling in both arms. BG215. Received 4 asprin and 200ml LR bolus in route. Hx of cardiac stents and diabetic. AO4 on arrival. TECHNIQUE: Portable upright AP view of the chest. COMPARISON: 05/09/2024 FINDINGS: LUNGS AND PLEURA: No focal opacity, large effusion, or pneumothorax identified. Calcified right base nodule unchanged. HEART/MEDIASTINUM: Trachea midline. Cardiac silhouette normal in size. Mediastinal contours appear normal. BONES: Unremarkable. CHEST WALL: Unremarkable. UPPER ABDOMEN: Unremarkable. IMPRESSION: No acute abnormality identified. THIS IS AN ELECTRONICALLY VERIFIED FINAL REPORT 07/05/2024 8:36 PM - Electronically signed by Phillip Peace M.D. AR: MANASA Report ID: [id number] Reading Location: [id number] Domenic Lucero MD IMG XR PROCEDURES Final Resu lt * ECG 12 lead (07/05/2024 7:40 PM CDT) 07/05/2024 7:40 PM CDT Narrative [facility] - 07/06/2024 7:27 AM CDT Vent Rate: 90 bpm RR Interval: 661 msec [place] Interval: 171 msec QRS Duration: 88 msec QT Interval: 363 msec QTC Interval: 411 msec P-R-T [place]: 9 - -30 - 21 degrees IMPRESSION: SINUS RHYTHM INFERIOR MYOCARDIAL INFARCTION , OF INDETERMINATE AGE [40+ ms Q WAVE AND/OR ST/T ABNORMALITY IN II/aVF] Incomplete right bundle branch block MODERATE T-WAVE ABNORMALITY, CONSIDER ANTERIOR ISCHEMIA [-0.1+ mV T-WAVE IN V3/V4] ABNORMAL ECG NO CHANGE FROM PREVIOUS TRACING NOTED Electronically Signed By: Yon Vincent MD Domenic Lucero MD ECG ORDERABLES Final Result Performing Organization Address City/[facility]/ZIP Co de Phone Number [facility] * Troponin T high-sensitivity series (baseline, 2hr, 4hr, 6hr) (07/05/2024 7:35 PM CDT) [facility] Trop T hs <6 <=14 ng/L Comment: Interpretive Data For further hscTnT resources including the diagnostic algorithm and an aid in interpretation, copy and paste this link: https://nrl.testcatalog.org/show/hsTrop Current Interpretive Data last revised 2020. Blood 07/05/2024 7:35 PM CDT 07/05/2024 7:44 PM CDT Domenic Lucero MD LAB BLOOD ORDERABLES Final R esult [facility] ([place]) 1 [facility] [place] [address] * eGFR (07/05/2024 7:35 PM CDT) [facility] eGFR >90 >=60 mL/min/1. 73 m2 Comment: Interpretive Data Reference Interval Normal >/= 90 mL/min/1.73m2 Mildly decreased* 60 - 89 mL/min/1.73m2 Mildly to moderately decreased 45 - 59 mL/min/1.73m2 Moderately to severely decreased 30 - 44 mL/min/1.73m2 Severely decreased 15 - 29 mL/min/1.73m2 Kidney Failure < 15 mL/min/1.73m2 *Relative to young adult level Estimated glomerular filtration rate is determined by the 2020 CKD-EPI equation recommended by the National Kidney Foundation (A Unifying Approach to GFR Estimation: Recommendations of the NKF-ASK Task Force on Reassessing the Inclusion of Race in Diagnosing Kidney Disease, JASN 2020). The CKD-EPI equation should not be used for patients with unstable renal function and has not been validated in children and those over 70. Current interpretive data was last reviewed 2021. Blood 07/05/2024 7:35 PM CDT 07/05/2024 7:44 PM CDT us Domenic Lucero MD LAB BLOOD ORDERABLES Final R esult [facility] ([place]) 1 [facility] [place] [address] * Differential, auto (07/05/2024 7:35 PM CDT) Neutrophil abs 4.7 1.5 - 6.5 K/cumm Imm gran abs 0.0 0.0 - 0.1 K/cumm [facility] ([place]) Lymphocyte abs 2.5 0.8 - 3.3 K/cumm [facility] ([place]) Monocyte abs 0.4 0.2 - 0.8 K/cumm [facility] ([place]) Eosinophil abs 0.2 0.0 - 0.5 K/cumm [facility] ([place]) Basophil abs 0.0 0.0 - 0.1 K/cumm [facility] ([place]) Neutrophil pct 59.6 % [facility] ([place]) Comment: Interpretive Data Percent cell count reference ranges are not reported, since discordance with absolute values may lead to misinterpretation of CBC data. Current Interpretive Data was last revised on 2017. Imm gran pct 0.5 % [facility] ([place]) Comment: Interpretive Data Percent cell count reference ranges are not reported, since discordance with absolute values may lead to misinterpretation of CBC data. Current Interpretive Data was last revised on 2017. Lymphocyte pct 31.5 % [facility] ([place]) Comment: Interpretive Data Percent cell count reference ranges are not reported, since discordance with absolute values may lead to misinterpretation of CBC data. Current Interpretive Data was last revised on 2017. Monocyte pct 5.6 % [facility] ([place]) Comment: Interpretive Data Percent cell count reference ranges are not reported, since discordance with absolute values may lead to misinterpretation of CBC data. Current Interpretive Data was last revised on 2017. Eosinophil pct 2.3 % [facility] ([place]) Comment: Interpretive Data Percent cell count reference ranges are not reported, since discordance with absolute values may lead to misinterpretation of CBC data. Current Interpretive Data was last revised on 2017. Basophil pct 0.5 % [facility] ([place]) Comment: Interpretive Data Percent cell count reference ranges are not reported, since discordance with absolute values may lead to misinterpretation of CBC data. Current Interpretive Data was last revised on 2017. Blood 07/05/2024 7:35 PM CDT 07/05/2024 7:44 PM CDT us Domenic Lucero MD LAB BLOOD ORDERABLES Final R esult [facility] ([place]) 1 [facility] [place] [address] * Pro B-type natriuretic peptide (07/05/2024 7:35 PM CDT) NT-proBNP <36 <=300 pg/mL Comment: Interpretive Comments: A. Dyspnea in Acute Care Setting All Ages: < 300 pg/ml, acute heart failure unlikely. < 50 yrs: 300 - 450 pg/ml, further investigation warranted. > 450 pg/ml, acute heart failure likely. 50 - 74 yrs: 300 - 900 pg/ml, further investigation warranted. > 900 pg/ml, acute heart failure likely . > or = 75 yrs: 450 - 1800 pg/ml, further investigation warranted. > 1800 pg/ml, acute heart failure likely. B. Non-acute Setting < 75 yrs < 125 pg/ml, rules out heart failure. > or = 125 pg/ml, further investigation warranted. > or = 75 yrs < 450 pg/ml, rules out heart failure. > or = 450 pg/ml, further investigation warranted. - Knowledge of each individual patient's NT-proBNP range may be more useful than using similar cut-points for every patient. Please note that marked elevations in NT-proBNP levels may be observed in state other than Left Ventricular Congestive Failure, including: acute coronary syndromes, right heart strain/failure (including pulmonary embolism and cor pulmonale), critical illness, renal failure, as well as advanced age. - References: 1. Magdy JL et.al. Eur Heart J. 2006:27:330-337. 2. Nikolas ALEJANDRE, Nolan SMITH. J. AM Lele Cardiol: Cardiovasc Imag. 2009;2: 216- 225. Interpretive Data Last Revised Date: 2017. Blood 07/05/2024 7:35 PM CDT 07/05/2024 7:44 PM CDT us Domenic Lucero MD LAB BLOOD ORDERABLES Final R esult [facility] ([place]) 1 [facility] Department of Laboratories [place], [place] [id number] * CBC with auto differential (07/05/2024 7:35 PM CDT) WBC 7.8 3.8 - 9.9 K/cumm Hgb 13.8 11.9 - 15.5 g/dL [facility] ([place]) Hct 41.2 35.6 - 45.5 % [facility] ([place]) Plt 295 150 - 400 K/cumm [facility] ([place]) MPV 10.0 9.1 - 12.3 fL [facility] ([place]) RBC 4.91 3.90 - 5.20 M/cumm [facility] ([place]) MCV 83.9 81.3 - 96.4 fL [facility] ([place]) MCH 28.1 27.1 - 33.3 pg [facility] ([place]) MCHC 33.5 32.3 - 35.7 g/dL [facility] ([place]) RDW CV 11.9 11.1 - 14.9 % [facility] ([place]) RDW SD 36.4 35.7 - 48.1 fL [facility] ([place]) NRBC abs 0.00 0.00 - 0.01 K/cumm [facility] ([place]) Blood 07/05/2024 7:35 PM CDT 07/05/2024 7:44 PM CDT Domenic Lucero MD LAB BLOOD ORDERABLES Final R esult Performing Organization Address [facility] Co de Phone Number [facility] ([place]) 1 [facility] [place] [address] * aPTT (07/05/2024 7:35 PM CDT) aPTT 32 28 - 38 sec [facility] ([place]) Comment: Interpretive Data Heparin therapeutic range: 66.0 - 100.0 seconds. Range based on correlation with therapeutic heparin activity range of 0.3 - 0.7 Units/mL. Current interpretive data was last revised on 2023. Blood 07/05/2024 7:35 PM CDT 07/05/2024 7:44 PM CDT Domenic Lucero MD LAB BLOOD ORDERABLES Final R esult Performing Organization Address City/[facility] Co de Phone Number [facility] ([place]) 1 [facility] [place] [address] * Protime-INR (07/05/2024 7:35 PM CDT) PT 10.9 9.7 - 13.0 sec [facility] ([place]) INR 1.01 0.90 - 1.20 [facility] ([place]) Comment: Interpretive data Oral anticoagulant therapeutic ranges: Venous thromboembolism prophylaxis or treatment: 2.0-3.0 CARDIOLOGY Standard range: 2.0-3.0 High-intensity range: 2.5-3.5 Refer to indication-specific guidelines for appropriate target ranges for prosthetic heart valve replacement. Current interpretive data was last revised on 2019. Blood 07/05/2024 7:35 PM CDT 07/05/2024 7:44 PM CDT Domenic Lucero MD LAB BLOOD ORDERABLES Final R esult Performing Organization Address City/[facility]/ZIP Co de Phone Number [facility] ([place]) [address] [place] [address] [place] [address] * D-dimer, quantitative (07/05/2024 7:35 PM CDT) D-Dimer <215 <=499 ng/mL FEU [facility] ([place]) Comment: Interpretive data FDA approved the D-dimer, in conjunction with a low or moderate pretest probability score, to exclude venous thromboembolic events (VTE) (PE and DVT) in outpatients when the D-dimer result is < 500 ng/ml FEU. Evidence supports using an age-adjusted D-dimer cut-off for outpatients older than 50 (age x 10) to improve specificity without sacrificing sensitivity. Example: age 68, VTE cut-off 680 ng/ml FEU. References; Schouten HT et al. Brit Med J. 2013;346:f2492. Anna et al. Annals Int Med. 2015;163:701-11. Current interpretive data was last revised on 2019. Blood 07/05/2024 7:35 PM CDT 07/05/2024 7:44 PM CDT Domenic Lucero MD LAB BLOOD ORDERABLES Final R esult Performing Organization Address City/[facility]/ZIP Co de Phone Number [facility] ([place]) 1 [facility] [place] [address] * Magnesium (07/05/2024 7:35 PM CDT) Magnesium 2.0 1.4 - 2.5 mg/dL Blood 07/05/2024 7:35 PM CDT 07/05/2024 7:44 PM CDT Domenic Lucero MD LAB BLOOD ORDERABLES Final R esult [facility] ([place]) 1 [place] [address] * Lipase (07/05/2024 7:35 PM CDT) Lipase 65 10 - 99 Units/L Blood 07/05/2024 7:35 PM CDT 07/05/2024 7:54 PM CDT Domenic Lucero MD LAB BLOOD ORDERABLES Final R esult Performing Organization Address City/[facility] Co de Phone Number [facility] ([place]) 1 [place] [address] * (ABNORMAL) Comprehensive metabolic panel (07/05/2024 7:35 PM CDT) Sodium 133(L) 135 - 145 mmol/L Potassium, pl 3.9 3.3 - 4.9 mmol/L [facility] ([place]) Chloride 99 97 - 110 mmol/L [facility] [place]) CO2 24 22 - 32 mmol/L [facility] [place]) Anion gap 10 2 - 15 mmol/L [facility] ([place]) BUN 8 6 - 25 mg/dL [facility] ([place]) Creatinine 0.66 0.60 - 1.10 mg/dL [facility] Glucose 231(H) 70 - 199 mg/dL [facility] ([place]) Comment: Interpretive Data Fasting glucose >/= 126 mg/dl is diagnostic for diabetes. Fasting is defined as no caloric intake for at least 8 hours. Fasting glucose between 100 mg/dl to 125 mg/dl is diagnostic of prediabetes. In a patient with classic symptoms of hyperglycemia or hyperglycemic crisis, a random glucose >/= 200 mg/dl is diagnostic for diabetes. In the absence of unequivocal hyperglycemia, results should be confirmed by repeat testing. The classification and Diagnosis of Diabetes Diabetes Care 2021; 46: S19-S40. Current interpretive data was last revised 2022. Calcium 9.6 8.5 - 10.3 mg/dL [facility] ([place]) Bilirubin, total <0.2 0.1 - 1.2 mg/dL [facility] ([place]) Protein, pl 6.7 6.5 - 8.5 g/dL [facility] ([place]) Albumin 3.9 3.5 - 5.0 g/dL [facility] ([place]) Alk phos 179(H) 40 - 130 Units/L [facility] ([place]) ALT 29 7 - 45 Units/L [facility] ([place]) AST 22 10 - 45 Units/L [facility] ([place]) Comment:Slightly Hemolyzed S pecimen Blood 07/05/2024 7:35 PM CDT 07/05/2024 7:44 PM CDT Domenic Lucero MD LAB BLOOD ORDERABLES Final R esult [facility] ([place]) 1 [facility] [place] [address] * CT Lung Cancer Screening (05/26/2024 4:39 PM MAINTENANCE APPRENTICE) Anatomical Region Laterality Modality Chest N/A Computed Tomogra phy 05/28/2024 3:29 PM MAINTENANCE APPRENTICE Narrative 05/28/2024 3:46 PM MAINTENANCE APPRENTICE EXAM DESCRIPTION: CT LUNG CANCER SCREENING REASON FOR STUDY: Screening CT of the chest in a former smoker with a 82 pack year smoking history. Additional history: None. TECHNIQUE: Low dose CT scan of the chest was performed without intravenous contrast using helical scanning technique. The exam extends from the lung apices through the lung bases. Automatic exposure control was used as a dose optimization technique. NOTE: This study was performed for the specific purposes of lung cancer screening and is not an alternative to diagnostic chest CT. RADIATION DOSE: CT dose index volume (CTDIvol) = 1.99 mGy COMPARISON: September 23, 2023 and June 26, 2023 FINDINGS: SMOKING RELATED LUNG DISEASE: Mild emphysematous changes. Very mild peribronchial thickening. Unchanged minimal right middle lobe scarring. LUNG NODULES: 6 mm noncalcified left lower lobe nodule (transverse image 201) and 5 mm noncalcified right lower lobe nodule (transverse image 178) are unchanged from prior exams and thought to be benign. 1.5 cm calcified nodule anterior right lower lobe (transverse image 164) is also unchanged. No new suspicious pulmonary nodules. CORONARY ARTERY CALCIFICATION: None OTHER: Small calcified mediastinal and right hilar lymph nodes in keeping with old granulomatous disease. Otherwise, no significantly enlarged lymph nodes. 3 cm well-circumscribed hypodensity left lobe of liver is unchanged and most likely a cyst. IMPRESSION: Mild emphysematous changes in the lungs with very mild peribronchial thickening and minimal right middle lobe scarring. Small noncalcified pulmonary nodules are unchanged and thought to be benign. No new suspicious pulmonary nodules. Evidence of old granulomatous disease. Unchanged 3 cm well-circumscribed hypodensity left lobe of liver is most likely a cyst. Lung-RADS category 2: Benign appearance or behavior. Recommendation: Low dose Screening CT of chest in 12 months. THIS IS AN ELECTRONICALLY VERIFIED FINAL REPORT 05/28/2024 3:46 PM - Electronically signed by Abdon Paz M.D. RB: RANDA Report ID: [id number] Reading Location: [place] [address] Procedure Note Abdon Paz MD - 05/28/2024 EXAM DESCRIPTION: CT LUNG CANCER SCREENING REASON FOR STUDY: Screening CT of the chest in a former smoker with a82 pack year smoking history. Additional history: None. TECHNIQUE: Low dose CT scan of the chest was performed without intravenous contrast using helical scanning technique. The exam extends from the lung apices through the lung bases. Automatic exposure control was used as adose optimization technique. NOTE: This study was performed for the specific purposes of lung cancer screening and is not an alternative to diagnostic chest CT. RADIATION DOSE: CT dose index volume (CTDIvol) = 1.99 mGy COMPARISON: September 23, 2023 and June 26, 2023 FINDINGS: SMOKING RELATED LUNG DISEASE: Mild emphysematous changes. Very mild peribronchial thickening. Unchanged minimal right middle lobe scarring. LUNG NODULES: 6 mm noncalcified left lower lobe nodule (transverse image 201) and 5 mm noncalcified right lower lobe nodule (transverse image 178)are unchanged from prior exams and thought to be benign. 1.5 cm calcifiednodule anterior right lower lobe (transverse image 164) is also unchanged. Nonew suspicious pulmonary nodules. CORONARY ARTERY CALCIFICATION: None OTHER: Small calcified mediastinal and right hilar lymph nodes inkeeping with old granulomatous disease. Otherwise, no significantly enlargedlymph nodes. 3 cm well-circumscribed hypodensity left lobe of liver isunchanged and most likely a cyst. IMPRESSION: Mild emphysematous changes in the lungs with very mild peribronchial thickening and minimal right middle lobe scarring. Small noncalcified pulmonary nodules are unchanged and thought to bebenign. No new suspicious pulmonary nodules. Evidence of old granulomatous disease. Unchanged 3 cm well-circumscribed hypodensity left lobe of liver is most likely a cyst. Lung-RADS category 2: Benign appearance or behavior. Recommendation: Low dose Screening CT of chest in 12 months. THIS IS AN ELECTRONICALLY VERIFIED FINAL REPORT 05/28/2024 3:46 PM - Electronically signed by Abdon Paz M.D. RB: RANDA Report ID: [id number] Reading Location: [place] [address] us Jose Yu MD IMG CT PROCEDURES Final Result * Pulmonary Function Test - (05/26/2024 4:05 PM MAINTENANCE APPRENTICE) Anatomical Region Laterality Modality PFT 05/26/2024 3:21 PM MAINTENANCE APPRENTICE Impressions 05/27/2024 8:20 PM MAINTENANCE APPRENTICE 1. Normal spirometry and lung volumes 2. Normal diffusion capacity Electronically signed by Blaise Hurst MD Pulmonary & Critical Care Narrative 05/27/2024 8:20 PM MAINTENANCE APPRENTICE PULMONARY FUNCTION TESTS Jacinta Sam 59 y.o. 05/27/2024 INTERPRETATION Please see technologist's comments mentioned in attached results report. SPIROMETRY: Pre bronchodilator FEV1 is 112 % predicted, FVC is 120 % predicted, FEV1/FVC is 0.76 Bronchodilator response: No Inspection of the patient's flow-volume loops shows: Normal configuration of the inspiratory and expiratory limbs. LUNG VOLUMES: Lung volumes by body plethysmography: TLC is 137 % predicted, RV is 161 % predicted DLCO: Unadjusted for hemoglobin and carboxyhemoglobin DLCO is 111 % predicted Isaura Juan MD PFT ORDERABLES Final Res ult * (ABNORMAL) POCT glucose (05/10/2024 12:30 PM MAINTENANCE APPRENTICE) Glucose, POC 273(H) 70 - 199 mg/dL Blood 05/10/2024 12:3 0 PM MAINTENANCE APPRENTICE 05/10/2024 12:30 PM MAINTENANCE APPRENTICE Amor Hyde DO LAB POCT ORDERABLES - DEVICE Final Result Performing Organization Address [facility]/ZIP Co de Phone Number [facility] ([place]) 1 [facility] [place] [address] * POCT glucose (05/10/2024 8:26 AM MAINTENANCE APPRENTICE) Glucose, POC 194 70 - 199 mg/dL Blood 05/10/2024 8:26 AM MAINTENANCE APPRENTICE 05/10/2024 8:26 AM MAINTENANCE APPRENTICE Amor Hyde DO LAB POCT ORDERABLES - DEVICE Final Result Performing Organization Address City/[facility]/ZIP Co de Phone Number [facility] ([place]) 1 [facility] [place] [address] * POCT glucose (05/10/2024 2:29 AM MAINTENANCE APPRENTICE) Glucose, POC 133 70 - 199 mg/dL Blood 05/10/2024 2:29 AM MAINTENANCE APPRENTICE 05/10/2024 2:29 AM MAINTENANCE APPRENTICE Amor Hyde DO LAB POCT ORDERABLES - DEVICE Final Result [facility] ([place]) 1 [facility] [place] [address] * POCT glucose (05/09/2024 8:51 PM MAINTENANCE APPRENTICE) Glucose, POC 183 70 - 199 mg/dL Blood 05/09/2024 8:51 PM MAINTENANCE APPRENTICE 05/09/2024 8:51 PM MAINTENANCE APPRENTICE Amor Hyde DO LAB POCT ORDERABLES - DEVICE Final Result Performing Organization Address [facility]/[place] de Phone Number [facility] ([place]) 1 [place] [address] * (ABNORMAL) POCT glucose (05/09/2024 5:07 PM MAINTENANCE APPRENTICE) Glucose, POC 211(H) 70 - 199 mg/dL Blood 05/09/2024 5:07 PM MAINTENANCE APPRENTICE 05/09/2024 5:07 PM MAINTENANCE APPRENTICE Amor Romeo [facility] DO LAB POCT ORDERABLES - DEVICE Final Result Performing Organization Address [facility] de Phone Number [facility] ([place]) 1 [place] [address] * XR CHEST 1 VIEW PORTABLE (05/09/2024 3:48 PM MAINTENANCE APPRENTICE) Anatomical Region Laterality Modality Body, Chest N/A Computed Radiogr aphy 05/09/2024 5:11 PM MAINTENANCE APPRENTICE Narrative 05/09/2024 5:44 PM MAINTENANCE APPRENTICE EXAM DESCRIPTION: XR CHEST 1 VIEW REASON FOR STUDY: Dyspnea dyspnea today TECHNIQUE: 1 radiographic view(s) of the chest. COMPARISON: 05/08/2024 FINDINGS: LUNGS: No focal opacity, pleural effusion, or pneumothorax. Large calcified granuloma right lower lobe. Poor inspiratory result with bibasilar atelectasis. HEART/MEDIASTINUM: Cardiac silhouette normal in size. Mediastinal and hilar contours appear normal. LINES/TUBES: None. BONES: No acute osseous abnormality. IMPRESSION: No acute cardiopulmonary abnormality. THIS IS AN ELECTRONICALLY VERIFIED FINAL REPORT 05/09/2024 5:44 PM - Electronically signed by Mustapha Sheth M.D. KT: KT Report ID: [id number] Reading Location: [id number] Procedure Note Mustapha Sheth MD - 05/09/2024 EXAM DESCRIPTION: XR CHEST 1 VIEW REASON FOR STUDY: Dyspnea dyspnea today TECHNIQUE: 1 radiographic view(s) of the chest. COMPARISON: 05/08/2024 FINDINGS: LUNGS: No focal opacity, pleural effusion, or pneumothorax. Largecalcified granuloma right lower lobe. Poor inspiratory result with bibasilar atelectasis. HEART/MEDIASTINUM: Cardiac silhouette normal in size. Mediastinal andhilar contours appear normal. LINES/TUBES: None. BONES: No acute osseous abnormality. IMPRESSION: No acute cardiopulmonary abnormality. THIS IS AN ELECTRONICALLY VERIFIED FINAL REPORT 05/09/2024 5:44 PM - Electronically signed by Mustapha Sheth M.D. KT: MICHAELA Report ID: [id number] Reading Location: [id number] Amor Hyde DO IMG XR PROCEDURES Dasha l Result * POCT glucose (05/09/2024 12:17 PM MAINTENANCE APPRENTICE) Glucose, POC 179 70 - 199 mg/dL Blood 05/09/2024 12:1 7 PM MAINTENANCE APPRENTICE 05/09/2024 12:17 PM MAINTENANCE APPRENTICE Amor Hyde DO LAB POCT ORDERABLES - DEVICE Final Result [facility] ([place]) 1 [facility] of Laboratories [place], [place] [id number] * POCT glucose (05/09/2024 8:02 AM MAINTENANCE APPRENTICE) Glucose, POC 181 70 - 199 mg/dL Blood 05/09/2024 8:02 AM MAINTENANCE APPRENTICE 05/09/2024 8:02 AM MAINTENANCE APPRENTICE Amor Hyde DO LAB POCT ORDERABLES - DEVICE Final Result [facility] ([place]) 1 [facility] [place] [address] * eGFR (05/09/2024 7:33 AM MAINTENANCE APPRENTICE) eGFR >90 >=60 mL/min/1. 73 m2 Comment: Interpretive Data Reference Interval Normal >/= 90 mL/min/1.73m2 Mildly decreased* 60 - 89 mL/min/1.73m2 Mildly to moderately decreased 45 - 59 mL/min/1.73m2 Moderately to severely decreased 30 - 44 mL/min/1.73m2 Severely decreased 15 - 29 mL/min/1.73m2 Kidney Failure < 15 mL/min/1.73m2 *Relative to young adult level Estimated glomerular filtration rate is determined by the 2020 CKD-EPI equation recommended by the National Kidney Foundation (A Unifying Approach to GFR Estimation: Recommendations of the NKF-ASK Task Force on Reassessing the Inclusion of Race in Diagnosing Kidney Disease, JASN 2020). The CKD-EPI equation should not be used for patients with unstable renal function and has not been validated in children and those over 70. Current interpretive data was last reviewed 2021. Blood 05/09/2024 7:33 AM MAINTENANCE APPRENTICE 05/09/2024 7:54 AM MAINTENANCE APPRENTICE Josefina Barnett MD LAB BLOOD ORDERABLES Dasha l Result [facility] ([place]) 1 [facility] [place] [address] * Differential, auto (05/09/2024 7:33 AM MAINTENANCE APPRENTICE) Neutrophil abs 3.4 1.5 - 6.5 K/cumm Imm gran abs 0.0 0.0 - 0.1 K/cumm [facility] ([place]) Lymphocyte abs 2.3 0.8 - 3.3 K/cumm [facility] ([place]) Monocyte abs 0.4 0.2 - 0.8 K/cumm [facility] ([place]) Eosinophil abs 0.2 0.0 - 0.5 K/cumm [facility] ([place]) Basophil abs 0.0 0.0 - 0.1 K/cumm [facility] ([place]) Neutrophil pct 53.7 % [facility] ([place]) Comment: Interpretive Data Percent cell count reference ranges are not reported, since discordance with absolute values may lead to misinterpretation of CBC data. Current Interpretive Data was last revised on 2017. Imm gran pct 0.5 % [facility] ([place]) Comment: Interpretive Data Percent cell count reference ranges are not reported, since discordance with absolute values may lead to misinterpretation of CBC data. Current Interpretive Data was last revised on 2017. Lymphocyte pct 36.1 % [facility] ([place]) Comment: Interpretive Data Percent cell count reference ranges are not reported, since discordance with absolute values may lead to misinterpretation of CBC data. Current Interpretive Data was last revised on 2017. Monocyte pct 6.4 % [facility] ([place]) Comment: Interpretive Data Percent cell count reference ranges are not reported, since discordance with absolute values may lead to misinterpretation of CBC data. Current Interpretive Data was last revised on 2017. Eosinophil pct 3.0 % [facility] ([place]) Comment: Interpretive Data Percent cell count reference ranges are not reported, since discordance with absolute values may lead to misinterpretation of CBC data. Current Interpretive Data was last revised on 2017. Basophil pct 0.3 % [facility] ([place]) Comment: Interpretive Data Percent cell count reference ranges are not reported, since discordance with absolute values may lead to misinterpretation of CBC data. Current Interpretive Data was last revised on 2017. Blood 05/09/2024 7:33 AM MAINTENANCE APPRENTICE 05/09/2024 7:54 AM MAINTENANCE APPRENTICE Josefina Barnett MD LAB BLOOD ORDERABLES Dasha l Result [facility] ([place]) 1 [facility] [place] [address] * CBC with auto differential (05/09/2024 7:33 AM MAINTENANCE APPRENTICE) [facility] WBC 6.3 3.8 - 9.9 K/cumm Hgb 13.1 11.9 - 15.5 g/dL [facility] ([place]) Hct 40.3 35.6 - 45.5 % [facility] ([place]) Plt 263 150 - 400 K/cumm [facility] ([place]) MPV 9.6 9.1 - 12.3 fL [facility] ([place]) RBC 4.70 3.90 - 5.20 M/cumm [facility] ([place]) MCV 85.7 81.3 - 96.4 fL [facility] ([place]) MCH 27.9 27.1 - 33.3 pg [facility] ([place]) MCHC 32.5 32.3 - 35.7 g/dL [facility] ([place]) RDW CV 12.4 11.1 - 14.9 % [facility] ([place]) RDW SD 38.8 35.7 - 48.1 fL [facility] ([place]) NRBC abs 0.00 0.00 - 0.01 K/cumm [facility] ([place]) Blood 05/09/2024 7:33 AM MAINTENANCE APPRENTICE 05/09/2024 7:54 AM MAINTENANCE APPRENTICE Josefina Barnett MD LAB BLOOD ORDERABLES Dasha l Result [facility] ([place]) 1 [facility] [place] [address] * (ABNORMAL) Comprehensive metabolic panel (05/09/2024 7:33 AM MAINTENANCE APPRENTICE) [facility] Sodium 136 135 - 145 mmol/L Potassium, pl 4.1 3.3 - 4.9 mmol/L [facility] ([place]) Chloride 103 97 - 110 mmol/L [facility] ([place]) CO2 25 22 - 32 mmol/L [facility] ([place]) Anion gap 8 2 - 15 mmol/L [facility] ([place]) BUN 20 6 - 25 mg/dL [facility] ([place]) Creatinine 0.69 0.60 - 1.10 mg/dL [facility] ([place]) Glucose 186 70 - 199 mg/dL [facility] ([place]) Comment: Interpretive Data Fasting glucose >/= 126 mg/dl is diagnostic for diabetes. Fasting is defined as no caloric intake for at least 8 hours. Fasting glucose between 100 mg/dl to 125 mg/dl is diagnostic of prediabetes. In a patient with classic symptoms of hyperglycemia or hyperglycemic crisis, a random glucose >/= 200 mg/dl is diagnostic for diabetes. In the absence of unequivocal hyperglycemia, results should be confirmed by repeat testing. The classification and Diagnosis of Diabetes Diabetes Care 202; 46: S19-S40. Current interpretive data was last revised 2022. Calcium 9.0 8.5 - 10.3 mg/dL [facility] ([place]) Bilirubin, total 0.3 0.1 - 1.2 mg/dL [facility] ([place]) Protein, pl 6.4(L) 6.5 - 8.5 g/dL [facility] ([place]) Albumin 3.6 3.5 - 5.0 g/dL [facility] ([place]) Alk phos 151(H) 40 - 130 Units/L [facility] ([place]) ALT 45 7 - 45 Units/L [facility] ([place]) AST 27 10 - 45 Units/L [facility] ([place]) Blood 05/09/2024 7:33 AM MAINTENANCE APPRENTICE 05/09/2024 7:54 AM MAINTENANCE APPRENTICE us Josefina Barnett MD LAB BLOOD ORDERABLES Dasha l Result [facility] ([place]) 1 [facility] Department of Laboratories [place], [place] [id number] * (ABNORMAL) POCT glucose (05/09/2024 2:52 AM MAINTENANCE APPRENTICE) Glucose, POC 246(H) 70 - 199 mg/dL Blood 05/09/2024 2:52 AM MAINTENANCE APPRENTICE 05/09/2024 2:52 AM MAINTENANCE APPRENTICE Amor Hyde DO LAB POCT ORDERABLES - DEVICE Final Result [facility] ([place]) 1 [facility] [place] [address] * POCT glucose (05/08/2024 8:47 PM MAINTENANCE APPRENTICE) Glucose, POC 180 70 - 199 mg/dL Blood 05/08/2024 8:47 PM MAINTENANCE APPRENTICE 05/08/2024 8:47 PM MAINTENANCE APPRENTICE Amor Hyde DO LAB POCT ORDERABLES - DEVICE Final Result Performing Organization Address City/[facility]/ZIP Co de Phone Number [facility] ([place]) 1 [facility] [place] [address] * POCT glucose (05/08/2024 4:59 PM MAINTENANCE APPRENTICE) Glucose, POC 159 70 - 199 mg/dL Blood 05/08/2024 4:59 PM MAINTENANCE APPRENTICE 05/08/2024 4:59 PM MAINTENANCE APPRENTICE Amor Hyde DO LAB POCT ORDERABLES - DEVICE Final Result [facility] ([place]) 1 [facility] [place] [employer] [address] * POCT glucose (05/08/2024 12:03 PM MAINTENANCE APPRENTICE) Glucose, POC 185 70 - 199 mg/dL Blood 05/08/2024 12:0 3 PM MAINTENANCE APPRENTICE 05/08/2024 12:03 PM MAINTENANCE APPRENTICE Amor Hyde DO LAB POCT ORDERABLES - DEVICE Final Result [facility] ([place]) 1 [facility] [place] [address] * D-dimer, quantitative (05/08/2024 9:25 AM MAINTENANCE APPRENTICE) D-Dimer <215 <=499 ng/mL FEU [facility] ([place]) Comment: Interpretive data FDA approved the D-dimer, in conjunction with a low or moderate pretest probability score, to exclude venous thromboembolic events (VTE) (PE and DVT) in outpatients when the D-dimer result is < 500 ng/ml FEU. Evidence supports using an age-adjusted D-dimer cut-off for outpatients older than 50 (age x 10) to improve specificity without sacrificing sensitivity. Example: age 68, VTE cut-off 680 ng/ml FEU. References; Schouten HT et al. Brit Med J. 2013;346:f2492. Anna STALEY et al. Annals Int Med. 2015;163:701-11. Current interpretive data was last revised on 2019. Blood 05/08/2024 9:25 AM MAINTENANCE APPRENTICE 05/08/2024 9:29 AM MAINTENANCE APPRENTICE Amor Romeo [facility] DO LAB BLOOD ORDERABLES F inal Result [facility] ([place]) 1 [facility] [place] [address] * (ABNORMAL) Influenza A/B, RSV, and COVID-19 PCR Nasopharyngeal (05/08/2024 8:53 AM MAINTENANCE APPRENTICE) Pathologist [facility] COVID-19 RNA Positive(A) Negative Influenza A RNA Negative Negative [facility] ([place]) Influenza B RNA Negative Negative [facility] ([place]) RSV RNA Negative Negative [facility] ([place]) Comment: Interpretive data: Testing performed by [facility]. This test is performed using the [employer] Xpert Xpress CoV-2/Flu/RSV plus assay. This is a multiplex, real- time reverse transcriptase PCR assay intended for the qualitative detection of nucleic acid from SARS-CoV-2, influenza A, influenza B, and respiratory syncytial virus. This assay has been cleared by the [place] Food and Drug administration. The performance characteristics have been verified by the [facility]. Results must be considered in the clinical context, and a negative result does not rule out infection. Interpretive Data last revised 2023 Nasopharyngeal 05/08/2024 8: 53 AM MAINTENANCE APPRENTICE 05/08/2024 8:58 AM MAINTENANCE APPRENTICE Narrative [facility] ([place]) - 05/08/2024 9:37 AM MAINTENANCE APPRENTICE Is the Patient experiencing symptoms consistent with COVID?->Yes Amor Romeo Mary Ellen DO LAB MICROBIOLOGY - GEN ERAL ORDERABLES Final Result Performing Organization Address [facility]/ZIP Co de Phone Number [facility] ([place]) 1 [facility] [place] [address] * POCT glucose (05/08/2024 8:08 AM MAINTENANCE APPRENTICE) Glucose, POC 176 70 - 199 mg/dL Blood 05/08/2024 8:08 AM MAINTENANCE APPRENTICE 05/08/2024 8:08 AM MAINTENANCE APPRENTICE Amor Romeo Mary Ellen DO LAB POCT ORDERABLES - DEVICE Final Result Performing Organization Address [facility] Co de Phone Number [facility] ([place]) [address] [place] [address] [employer] [address] * Troponin T high-sensitivity 6-hour (05/08/2024 8:03 AM MAINTENANCE APPRENTICE) Trop T hs <6 <=14 ng/L Comment: Interpretive Data For further hscTnT resources including the diagnostic algorithm and an aid in interpretation, copy and paste this link: https://nrl.testcatalog.org/show/hsTrop Current Interpretive Data last revised 2020. Trop T hs delta -1 ng/L [facility] ([place]) Trop T hs interp Insignificant [facility] ([place]) Blood 05/08/2024 8:03 AM MAINTENANCE APPRENTICE 05/08/2024 9:02 AM MAINTENANCE APPRENTICE Josefina Barnett MD LAB BLOOD ORDERABLES Dasha l Result Performing Organization Address [facility]/ZIP Co de Phone Number [facility] ([place]) 1 [facility] [place] [address] * Troponin T high-sensitivity 4-hour (05/08/2024 5:45 AM MAINTENANCE APPRENTICE) Trop T hs <6 <=14 ng/L Comment: Interpretive Data For further hscTnT resources including the diagnostic algorithm and an aid in interpretation, copy and paste this link: https://nrl.testCellvine.org/show/hsTrop Current Interpretive Data last revised 2020. Trop T hs delta -1 ng/L [facility] ([place]) Trop T hs interp Insignificant [facility] ([place]) Blood 05/08/2024 5:45 AM MAINTENANCE APPRENTICE 05/08/2024 5:46 AM MAINTENANCE APPRENTICE us Josefina Barnett MD LAB BLOOD ORDERABLES Dasha l Result Performing Organization Address [facility] Co de Phone Number [facility] ([place]) 1 [facility] [place] [address] * Troponin T high-sensitivity 2-hour (05/08/2024 3:34 AM MAINTENANCE APPRENTICE) Trop T hs <6 <=14 ng/L Comment: Interpretive Data For further hscTnT resources including the diagnostic algorithm and an aid in interpretation, copy and paste this link: https://nrl.Trunity.org/show/hsTrop Current Interpretive Data last revised 2020. Trop T hs delta -1 ng/L [facility] ([place]) Trop T hs interp Insignificant [facility] ([place]) Blood 05/08/2024 3:34 AM MAINTENANCE APPRENTICE 05/08/2024 3:38 AM MAINTENANCE APPRENTICE us Josefina Barnett MD LAB BLOOD ORDERABLES Dasha l Result [facility] ([place]) 1 [facility] [place] [address] * Troponin T high-sensitivity series (baseline, 2hr, 4hr, 6hr) (05/08/2024 1:28 AM MAINTENANCE APPRENTICE) Trop T hs 7 <=14 ng/L Comment: Interpretive Data For further hscTnT resources including the diagnostic algorithm and an aid in interpretation, copy and paste this link: https://nrl.testcatalog.org/show/hsTrop Current Interpretive Data last revised 2020. Blood 05/08/2024 1:28 AM MAINTENANCE APPRENTICE 05/08/2024 1:32 AM MAINTENANCE APPRENTICE us Josefina Barnett MD LAB BLOOD ORDERABLES Dasha nolberto Result [facility] ([place]) 1 [facility] [place] [address] * eGFR (05/08/2024 1:28 AM MAINTENANCE APPRENTICE) eGFR >90 >=60 mL/min/1. 73 m2 Comment: Interpretive Data Reference Interval Normal >/= 90 mL/min/1.73m2 Mildly decreased* 60 - 89 mL/min/1.73m2 Mildly to moderately decreased 45 - 59 mL/min/1.73m2 Moderately to severely decreased 30 - 44 mL/min/1.73m2 Severely decreased 15 - 29 mL/min/1.73m2 Kidney Failure < 15 mL/min/1.73m2 *Relative to young adult level Estimated glomerular filtration rate is determined by the 2020 CKD-EPI equation recommended by the National Kidney Foundation (A Unifying Approach to GFR Estimation: Recommendations of the NKF-ASK Task Force on Reassessing the Inclusion of Race in Diagnosing Kidney Disease, JASN 2020). The CKD-EPI equation should not be used for patients with unstable renal function and has not been validated in children and those over 70. Current interpretive data was last reviewed 2021. Blood 05/08/2024 1:28 AM MAINTENANCE APPRENTICE 05/08/2024 1:32 AM MAINTENANCE APPRENTICE us Josefina Barnett MD LAB BLOOD ORDERABLES Dasha arvizu Result [facility] ([place]) 1 [facility] [place] [address] * Differential, auto (05/08/2024 1:28 AM MAINTENANCE APPRENTICE) Neutrophil abs 4.6 1.5 - 6.5 K/cumm Imm gran abs 0.0 0.0 - 0.1 K/cumm [facility] ([place]) Lymphocyte abs 3.0 0.8 - 3.3 K/cumm [facility] ([place]) Monocyte abs 0.5 0.2 - 0.8 K/cumm [facility] ([place]) Eosinophil abs 0.2 0.0 - 0.5 K/cumm [facility] ([place]) Basophil abs 0.0 0.0 - 0.1 K/cumm [facility] ([place]) Neutrophil pct 55.5 % [facility] ([place]) Comment: Interpretive Data Percent cell count reference ranges are not reported, since discordance with absolute values may lead to misinterpretation of CBC data. Current Interpretive Data was last revised on 2017. Imm gran pct 0.5 % [facility] ([place]) Comment: Interpretive Data Percent cell count reference ranges are not reported, since discordance with absolute values may lead to misinterpretation of CBC data. Current Interpretive Data was last revised on 2017. Lymphocyte pct 35.5 % [facility] ([place]) Comment: Interpretive Data Percent cell count reference ranges are not reported, since discordance with absolute values may lead to misinterpretation of CBC data. Current Interpretive Data was last revised on 2017. Monocyte pct 5.8 % [facility] ([place]) Comment: Interpretive Data Percent cell count reference ranges are not reported, since discordance with absolute values may lead to misinterpretation of CBC data. Current Interpretive Data was last revised on 2017. Eosinophil pct 2.3 % [facility] ([place]) Comment: Interpretive Data Percent cell count reference ranges are not reported, since discordance with absolute values may lead to misinterpretation of CBC data. Current Interpretive Data was last revised on 2017. Basophil pct 0.4 % [facility] ([place]) Comment: Interpretive Data Percent cell count reference ranges are not reported, since discordance with absolute values may lead to misinterpretation of CBC data. Current Interpretive Data was last revised on 2017. Blood 05/08/2024 1:28 AM MAINTENANCE APPRENTICE 05/08/2024 1:32 AM MAINTENANCE APPRENTICE Josefina Barnett MD LAB BLOOD ORDERABLES Dasha l Result [facility] EDUARD ([place]) 1 [facility] Department of Laboratories [place], [place] [id number] * Pro B-type natriuretic peptide (05/08/2024 1:28 AM MAINTENANCE APPRENTICE) NT-proBNP <36 <=300 pg/mL Comment: Interpretive Comments: A. Dyspnea in Acute Care Setting All Ages: < 300 pg/ml, acute heart failure unlikely. < 50 yrs: 300 - 450 pg/ml, further investigation warranted. > 450 pg/ml, acute heart failure likely. 50 - 74 yrs: 300 - 900 pg/ml, further investigation warranted. > 900 pg/ml, acute heart failure likely . > or = 75 yrs: 450 - 1800 pg/ml, further investigation warranted. > 1800 pg/ml, acute heart failure likely. B. Non-acute Setting < 75 yrs < 125 pg/ml, rules out heart failure. > or = 125 pg/ml, further investigation warranted. > or = 75 yrs < 450 pg/ml, rules out heart failure. > or = 450 pg/ml, further investigation warranted. - Knowledge of each individual patient's NT-proBNP range may be more useful than using similar cut-points for every patient. Please note that marked elevations in NT-proBNP levels may be observed in state other than Left Ventricular Congestive Failure, including: acute coronary syndromes, right heart strain/failure (including pulmonary embolism and cor pulmonale), critical illness, renal failure, as well as advanced age. - References: 1. Magdy ASLEH et.al. Eur Heart J. 2006:27:330-337. 2. Nikolas RW, Nolan AM. J. AM Lele Cardiol: Cardiovasc Imag. 2009;2: 216- 225. Interpretive Data Last Revised Date: 2017. Blood 05/08/2024 1:28 AM MAINTENANCE APPRENTICE 05/08/2024 2:12 AM MAINTENANCE APPRENTICE Josefina Barnett MD LAB BLOOD ORDERABLES Dasha l Result [facility] ([place]) 1 [facility] [place] [address] * CBC with auto differential (05/08/2024 1:28 AM MAINTENANCE APPRENTICE) WBC 8.3 3.8 - 9.9 K/cumm Hgb 14.0 11.9 - 15.5 g/dL [facility] ([place]) Hct 42.7 35.6 - 45.5 % [facility] ([place]) Plt 228 150 - 400 K/cumm [facility] ([place]) MPV 10.0 9.1 - 12.3 fL [facility] [place]) RBC 4.98 3.90 - 5.20 M/cumm [facility] ([place]) MCV 85.7 81.3 - 96.4 fL [facility] ([place]) MCH 28.1 27.1 - 33.3 pg [facility] ([place]) MCHC 32.8 32.3 - 35.7 g/dL [facility] [place]) RDW CV 12.3 11.1 - 14.9 % [facility] [place]) RDW SD 38.4 35.7 - 48.1 fL [facility] ([place]) NRBC abs 0.00 0.00 - 0.01 K/cumm [facility] ([place]) Blood Venous blood specimen / Unknown 05/08/2024 1:28 AM MAINTENANCE APPRENTICE 05/08/2024 1:32 AM MAINTENANCE APPRENTICE Josefina Barnett MD LAB BLOOD ORDERABLES Dasha l Result [facility] ([place]) 1 [facility] [place] [address] * (ABNORMAL) Comprehensive metabolic panel (05/08/2024 1:28 AM MAINTENANCE APPRENTICE) Sodium 135 135 - 145 mmol/L Potassium, pl 4.0 3.3 - 4.9 mmol/L [facility] [place]) Chloride 101 97 - 110 mmol/L [facility] [place]) CO2 24 22 - 32 mmol/L [facility] [place]) Anion gap 10 2 - 15 mmol/L [facility] ([place]) BUN 12 6 - 25 mg/dL [facility] ([place]) Creatinine 0.67 0.60 - 1.10 mg/dL [facility] [place]) Glucose 198 70 - 199 mg/dL [facility] ([place]) Comment: Interpretive Data Fasting glucose >/= 126 mg/dl is diagnostic for diabetes. Fasting is defined as no caloric intake for at least 8 hours. Fasting glucose between 100 mg/dl to 125 mg/dl is diagnostic of prediabetes. In a patient with classic symptoms of hyperglycemia or hyperglycemic crisis, a random glucose >/= 200 mg/dl is diagnostic for diabetes. In the absence of unequivocal hyperglycemia, results should be confirmed by repeat testing. The classification and Diagnosis of Diabetes Diabetes Care 2021; 46: S19-S40. Current interpretive data was last revised 2022. Calcium 9.5 8.5 - 10.3 mg/dL [facility] [place]) Bilirubin, total <0.2 0.1 - 1.2 mg/dL [facility] ([place]) Protein, pl 7.4 6.5 - 8.5 g/dL [facility] ([place]) Albumin 4.0 3.5 - 5.0 g/dL [facility] ([place]) Alk phos 180(H) 40 - 130 Units/L [facility] ([place]) ALT 40 7 - 45 Units/L [facility] ([place]) AST 30 10 - 45 Units/L [facility] ([place]) Comment:Slightly Hemolyzed S pecimen Blood 05/08/2024 1:28 AM MAINTENANCE APPRENTICE 05/08/2024 1:32 AM MAINTENANCE APPRENTICE Josefina Barnett MD LAB BLOOD ORDERABLES Dasha l Result [facility] [place] 1 [facility] Department [place] [address] * XR Chest PA Lateral 2 Views (05/08/2024 1:04 AM MAINTENANCE APPRENTICE) Anatomical Region Laterality Modality Body, Chest N/A Computed Radiogr aphy 05/08/2024 1:05 AM MAINTENANCE APPRENTICE Narrative 05/08/2024 1:06 AM MAINTENANCE APPRENTICE EXAM DESCRIPTION: XR CHEST PA LATERAL 2 VIEWS REASON FOR STUDY: chest pain Pt c/o mid sternal chest pain that woke her up at 2300. Pt took 2 baby ASA when it started. Pt has cardiac stents. Former smoker Hx of HTN, DM, and asthma Hx of stent placement TECHNIQUE: Frontal and lateral radiographic views of the chest acquired. COMPARISON: Chest x-ray of September 19, 2023. FINDINGS: LUNGS/PLEURA: Lungs are mildly hypoventilatory with bibasilar atelectasis and a stable calcified granuloma at the right lung base. HEART/MEDIASTINUM: Cardiac silhouette is normal. Remaining mediastinal silhouettes are unremarkable. HARDWARE/LINES/TUBES: None. BONES: No acute findings. IMPRESSION: No acute cardiopulmonary abnormality. THIS IS AN ELECTRONICALLY VERIFIED FINAL REPORT 05/08/2024 1:06 AM - Electronically signed by Payal Fuentes M.D. SN: Report ID: [id number] Reading Location: [id number] Procedure Note Payal Fuentes MD - 05/08/2024 EXAM DESCRIPTION: XR CHEST PA LATERAL 2 VIEWS REASON FOR STUDY: chest pain Pt c/o mid sternal chest pain that woke her up at 2300. Pt took 2 baby ASA when it started. Pt has cardiac stents. Former smoker Hx of HTN, DM,and asthma Hx of stent placement TECHNIQUE: Frontal and lateral radiographic views of the chest acquired. COMPARISON: Chest x-ray of September 19, 2023. FINDINGS: LUNGS/PLEURA: Lungs are mildly hypoventilatory with bibasilar atelectasisand a stable calcified granuloma at the right lung base. HEART/MEDIASTINUM: Cardiac silhouette is normal. Remaining mediastinal silhouettes are unremarkable. HARDWARE/LINES/TUBES: None. BONES: No acute findings. IMPRESSION: No acute cardiopulmonary abnormality. THIS IS AN ELECTRONICALLY VERIFIED FINAL REPORT 05/08/2024 1:06 AM - Electronically signed by Payal Fuentes M.D. SN: SN Report ID: [id number] Reading Location: [place] [address] Joseifna Barnett MD IMG XR PROCEDURES Final R esult * ECG 12 lead (05/08/2024 12:53 AM MAINTENANCE APPRENTICE) 05/08/2024 12:5 3 AM MAINTENANCE APPRENTICE Narrative [facility] - 05/08/2024 11:54 AM MAINTENANCE APPRENTICE Vent Rate: 91 bpm RR Interval: 655 msec [place] Interval: 152 msec QRS Duration: 106 msec QT Interval: 373 msec QTC Interval: 422 msec P-R-T [place]: 7 - -52 - 11 degrees IMPRESSION: SINUS RHYTHM POSSIBLE RIGHT VENTRICULAR CONDUCTION DELAY [RSR (QR) IN V1/V2] LEFT ANTERIOR FASCICULAR BLOCK [QRS AXIS <= -45, QR IN I, RS IN II] INFERIOR MYOCARDIAL INFARCTION , PROBABLY OLD WITH POSTERIOR EXTENSION [40+ ms Q WAVE AND/OR ST/T ABNORMALITY IN II/aVFPROMINE WAVE IN V1/V2] MODERATE T-WAVE ABNORMALITY, CONSIDER ANTERIOR ISCHEMIA [-0.1+ mV T WAVE IN V3/V4] ABNORMAL ECG NO CHANGE FROM PREVIOUS TRACING NOTED Electronically Signed By: Yon Vincent MD Josefina Barnett MD ECG ORDERABLES Final Res ult [facility] * (ABNORMAL) POCT hemoglobin A1c (03/01/2024 1:08 PM MAINTENANCE APPRENTICE) Hemoglobin A1C, POC 8.3 4.0 - 5.6 % Capillary blood 03/01/2024 1 :08 PM MAINTENANCE APPRENTICE us Jose Yu MD POINT OF CARE TEST ORDERABLES Fi nal Result * Lipid panel (09/24/2023 5:49 AM CDT) Cholesterol 123 30 - 199 mg/dL Comment: Interpretive Data Ages < or = 19 years Acceptable: <170 mg/dL Borderline high: 170-199 mg/dL High: >or= 200 mg/dL Ages > or = 20 years Desirable: <200 mg/dL Borderline high: 200-239 mg/dL High: >or= 240 mg/dL Literature References: 1. Expert Panel on Integrated Guidelines for Cardiovascular Health and Risk Reduction in Children and Adolescents. Pediatrics 2011;128:S213 2. NCEP Expert Panel. Circulation 2004;110:227 Current Interpretive Data was last revised on 2017. Triglycerides 63 <=149 mg/dL [facility] ([place]) Comment: Interpretive Data Ages < or = 9 years Acceptable: <75 mg/dL Borderline high: 75-99 mg/dL High: >or= 100 mg/dL Ages 10 to 20 years Acceptable: <90 mg/dL Borderline high: 90-129 mg/dL High: >or= 130 mg/dL Ages > or = 20 years Desirable: <150 mg/dL Borderline high: 150-199 mg/dL High: 200-499 mg/dL Very high: >or= 499 mg/dL Literature References: 1. Expert Panel on Integrated Guidelines for Cardiovascular Health and Risk Reduction in Children and Adolescents. Pediatrics 2011;128:S213 2. NCEP Expert Panel. Circulation 2004;110:227 Current Interpretive Data was last revised on 2017. HDL 54 >=40 mg/dL [facility] ([place]) Comment: Interpretive Data Ages < or = 19 years Acceptable: >45 mg/dL Borderline low: 40-45 mg/dL Low: <40 mg/dL Ages > or = 20 years Desirable: >or= 60 mg/dL Low: <40 mg/dL Literature References: 1. Expert Panel on Integrated Guidelines for Cardiovascular Health and Risk Reduction in Children and Adolescents. Pediatrics 2011;128:S213 2. NCEP Expert Panel. Circulation 2004;110:227 Current Interpretive Data was last revised on 2017. LDL, calculated 56 <=129 mg/dL [facility] ([place]) Comment: Interpretive Data Ages < or = 19 years Acceptable: <110 mg/dL Borderline high: 110-129 mg/dL High: >or= 130 mg/dL Ages > or = 20 years Optimal: <100 mg/dL Near optimal: 100-129 mg/dL Borderline high: 130-159 mg/dL High: >160 mg/dL Literature References: 1. Expert Panel on Integrated Guidelines for Cardiovascular Health and Risk Reduction in Children and Adolescents. Pediatrics 2011;128:S213 2. NCEP Expert Panel. Circulation 2004;110:227 Current Interpretive Data was last revised on 2017. Non-HDL Cholesterol 69 mg/dL [facility] ([place]) Comment: Interpretive Data Ages < or = 19 years Acceptable: <120 mg/dL Borderline high: 120-144 mg/dL High: >145 mg/dL Ages > or = 20 years When triglycerides are >200 mg/dL, Non-HDL cholesterol is a secondary target of therapy with treatment goals that are 30 mg/dL greater than the LDL cholesterol target. Literature References: 1. Expert Panel on Integrated Guidelines for Cardiovascular Health and Risk Reduction in Children and Adolescents. Pediatrics 2011;128:S213 2. NCEP Expert Panel. Circulation 2004;110:227 Current Interpretive Data was last revised on 2017. Chol/HDL ratio 2 [facility] ([place]) Blood 09/24/2023 5:49 AM CDT 09/24/2023 5:52 AM CDT us Vy Duncan MD LAB BLOOD ORDERABLES Fin al Result [facility] ([place]) 1 [facility] [place] [address] * Hepatitis panel, acute Blood (07/01/2023 11:14 AM MAINTENANCE APPRENTICE) Hep A IgM Nonreactive Nonreactive [facility] ([place]) Comment: Interpretive Data: If Hep A IgM Ab is reported as Equivocal, a new sample should be drawn in two weeks for testing. Current interpretive data was last revised on 19. Testing performed by: [facility], [address] [place] [address]., [id number] Hep B core IgM Nonreactive Nonreactive C [facility]ALA [facility] ([place]) Comment: Interpretive Data If HepB Core IgM Ab is reported as Equivocal, a new sample should be drawn in two weeks for testing. Current interpretive data was last revised on 19. Testing performed by: [facility], [address] [place] [address]., [id number] Hep C Ab Nonreactive Nonreactive [facility] ([place]) Comment: Interpretive Data Nonreactive: Antibodies to HCV not detected. Does NOT exclude the possibility of recent exposure to HCV. Equivocal: Equivocal for HCV antibodies. Supplemental molecular testing will be automatically performed to determine infection status in accordance with current CDC screening recommendations. Reactive: Positive for HCV antibodies. This may represent current or past HCV infection. Supplemental molecular testing will be automatically performed to determine current infection status in accordance with current CDC screening recommendations. Interpretive data was last revised on 2019. Testing performed by: [facility], [address] [place] [address]., [id number] HepBsAg Nonreactive Nonreactive [facility] ([place]) Comment:Testing performed by : [facility], [address] [place] [address]., [id number] Blood 07/01/2023 11:1 4 AM MAINTENANCE APPRENTICE 07/01/2023 2:17 PM MAINTENANCE APPRENTICE us Jose Yu MD LAB MICROBIOLOGY - GENERAL ORDER ANNIE Final Result [facility] ([place]) 1 [facility] Department [place] [address] * Albumin Creatinine Ratio, Urine (06/30/2023 12:00 AM MAINTENANCE APPRENTICE) Albumin Ur <12.0 mg/L Y[facility] Comment: Interpretive Data No reference range established. Current interpretive data was last revised 2018. Creatinine Ur 274.1 mg/dL Y[facility]I Comment: Interpretive Data No reference range established. Current interpretive data was last revised 2018. Albumin Creatinine Ratio, Ur <4 1 - 29 mg/g Y[facility]I Urine 06/30/2023 06/30/2023 8:1 3 PM MAINTENANCE APPRENTICE us Jose Yu MD LAB [place] [address] [address] Department [place] [address] * COLONOSCOPY (02/26/2023 12:07 PM CDT) Anatomical Region Laterality Modality Other Narrative Procedure Note Cinthia Zafar MD - 02/26/2023 12:07 PM CDT [facility] Patient Name: Jacinta Sam Procedure Date: 02/26/2023 12:07 PM Date of : 1965 Admit Type: Outpatient Age: 58 Gender: Female Attending MD: Cinthia Zafar M.D. Room: [facility] 1 Note Status: Finalized Patient Profile: This is a 58 year old female. History of polyps. Grandparent had colon cancer. Procedure: Colonoscopy Indications: High risk colon cancer surveillance: Personalhistory of colonic polyps, Last colonoscopy: 2012 Referring MD: Jose Yu M.D. Providers: Cinthia Zafar M.D. Impression: - One 4 mm polyp in the descending colon, removedwith a jumbo cold forceps. Resected and retrieved. - Internal hemorrhoids. Recommendation: - Await pathology results. - Repeat colonoscopy in 4 years with 2 days colon preparation for surveillance. - Continue present medications. Medicines: Monitored Anesthesia Care Complications: No immediate complications. Estimated Blood Loss: Estimated blood loss: none. Procedure: Pre-Anesthesia Assessment: - Prior to the procedure, a History and Physicalwas performed, and patient medications and allergieswere reviewed. The patient's tolerance of previous anesthesia was also reviewed. The risks andbenefits of the procedure and the sedation options and risks were discussed with the patient. All questions were answered, and informed consent was obtained. Prior Anticoagulants: The patient has taken noanticoagulant or antiplatelet agents. ASA Grade Assessment: II -A patient with mild systemic disease. After reviewing the risks and benefits, the patient was deemed in satisfactory condition to undergo the procedure. The benefits, risks and alternatives of theprocedure and sedation were discussed and informed consentwas obtained. All questions were answered. Please referto the signed informed consent document in the medical record. The bowel preparation used was Miralax via split dose instruction. The bowel preparation usedwas bisacodyl tablets via split dose instruction. The scope was passed under direct vision. The Pediatric Colonoscope PCF-H190L [id number] was introducedthrough the anus and advanced to the the cecum, identifiedby appendiceal orifice and ileocecal valve. Thequality of the bowel preparation was fair. Findings: The perianal and digital rectal examinations were normal. The transverse colon, ascending colon and cecum appeared normal.Colon preparation overall was fair only and not completely adequate A 4 mm polyp was found in the descending colon. The polyp was semi-sessile. The polyp was removed with a jumbo cold forceps.Resection and retrieval were complete. The rectum and sigmoid colon appeared normal. Internal hemorrhoids were found during retroflexion. The hemorrhoids were small. Electronically signed by Cinthia Zafar M.D. Cinthia Zafar M.D. 02/26/2023 2:03:39 PM Number of Addenda: 0 Note Initiated On: 02/26/2023 12:07 PM Procedure Code(s): --- Professional --- 62838, Colonoscopy, flexible; with biopsy, single or multiple Diagnosis Code(s): --- Professional --- Z86.010, Personal history of colonic polyps K64.8, Other hemorrhoids D12.4, Benign neoplasm of descending colon CPT copyright 2020 [employer]. All rights reserved. The codes documented in this report are preliminary and upon tree feller reviewmay be revised to meet current compliance requirements. Recognized by the [employer] [employer] for promoting quality in endoscopy Cinthia Zafar MD ENDOSCOPY PROCEDURES Final Result from Last 3 Months or Most Recently Relevant to Health Maintenance Additional Health Concerns Infection Onset Date Last Indicated COVID: Recovered Comment:Added based on recent COVID infection. 05/20/2024 025 Insurance [facility] AETNA [facility] [place] Advance Directives For more information, please contact: [phone] * Full Code (Latest Code Status on File) Date Activated Date Inactivated Comments 07/05/2024 9:52 PM 07/06/2024 7:39 PM * Full Code Date Activated Date Inactivated Comments 05/08/2024 6:48 AM 05/10/2024 6:55 PM * Full Code Date Activated Date Inactivated Comments 05/08/2024 5:58 AM 05/08/2024 6:48 AM * Full Code Date Activated Date Inactivated Comments 09/24/2023 12:46 AM 09/26/2023 3:04 PM * Full Code Date Activated Date Inactivated Comments 09/19/2023 8:55 PM 09/21/2023 2:06 PM Healthcare Agents on File Name Relationship Healthcare Agent Relationshi p Communication Simi Sam Mother Health Care Agent Care Teams Learn To Swim Instructor Relationship Specialty Start Date End Date Jose Yu MD PCP - General Family Medicine 03/13/22 08/19/24 Claudia Parisi, DOUBLE CORNER CUTTER [address] [place] [address] [place] [address] Obstetrics and Gynecology 06/13/22
--- OUTSIDE RECORDS SUMMARY | 2024-07-26 19:33 | XMS_ITS | Encounter Summary ---
Author Organization [facility] Healthcare Address [address] [place] [address] Care Team Providers Care Circuit Rider Name Role Phone Jose Yu MD Primary Care Provider [phone] Claudia Parisi SALES AND MARKETING ASSISTANT Unavailable Reason for Visit * Reason Onset Date Comments HATTIE Questions 07/06/2024 Encounter Details Date Type Department Care Team (Late st Contact Info) Description 07/06/2024 Telephone [facility] Primary Care at [address] [place] [phone] Jose Yu MD [address] [place] [phone] HATTIE Questions Social History Tobacco Use Types Packs/Day Years Used Date Smoking Tobacco: Former Cigarettes 1 25 0 09/03/1992 - 09/03/2017 Smokeless Tobacco: Never Alcohol Use Standard Drinks/Week Comments Never 0 (1 standard drink = 0.6 oz pur e alcohol) [facility] Utilities Answer Date Recorded In the past 12 months has [employer], gas, oil, or water company threatened to [...] often do you attend chur ch or pentecostal services? Never 09/25/2023 Do you belong to any clubs o r organizations such as adventist groups, unions, fraternal or athletic groups, or [...] place to sleep or slept in a retirement (including now)? No 07/18/2023 Housing Stability Vital Sign Answer Gonzalo e Recorded In the last 12 months, was t here a time when you were not able to pay the mortgage or rent on time? No 09/25/2023 In the past 12 months, how m any times have you moved where you were living? 0 09/25/2023 At any time in the past 12 m ont, were you homeless or living in a retirement (including now)? 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 * Telephone Encounter - Kirstin Lopez MA - 07/06/2024 10:07 AM CDT HATTIE Questions (Message from [facility]): Has patient been discharged at time of call? No Will patient be transferred to another inpatient facility (e.g. residential, inpatient rehab, etc.)? No The patient was not discharged at the time of the call. Patient will need to be contacted after discharge to complete remaining questions. Date Admitted: 07/05/24 Tentative Discharge Date: 07/06/24 Facility Admitted To: [facility] Date of HATTIE Appointment: 07/13/24 Additional Comments: Dx: Chest Pain Does message need to be routed? Yes-Action Needed documented in this encounter Plan of Treatment Not on file documented as of this encounter Visit Diagnoses Not on filedocumented in this encounter Additional Health Concerns Infection Onset Date Last Indicated Resolved Time COVID: Recovered Comment:Added based on recent COVID infection. 05/20/2024 05/20/2024 documented as of this encounter Care Teams Circuit Rider Relationship Specialty Start Date End Date Jose Yu MD PCP - General Family Medicine 03/13/22 08/19/24 Claudia Parisi NP [address] [place] [address] [place] [address] Obstetrics and Gynecology 06/13/22 documented as of this encounter
--- OUTSIDE RECORDS SUMMARY | 2024-07-26 19:33 | XMS_ITS | CONTINUITY OF CARE DOCUMENT ---
Author Name ty crawford Address Unknown Organization [facility] Address [address] [place] [address] Phone [phone] Care Team Providers Care Ware Cleaner Name Role Phone Shmuel HAMMER, Pankaj Unavailable [phone] RONIT OCONNOR Unavailable RONIT OCONNOR Unavailable [phone] PROBLEMS Condition Status Date Provider Notes Iron deficiency active Dakota Mccormack RN Microvascular angina active Byron Esteban Tobacco use, quit active Pankaj Mi MD Asthma active Byron Acevedo MD Cardiomyopathy active Byron Acevedo MD Vitamin D deficiency active Byron Esteban Hyperlipidemia active Byron Acevedo MD PREDIABETES; active Byron Acevedo MD Health maintenance examination active Marina Acevedo MD Overweight active Byron Acevedo MD ? Sleep apnea active Byron Acevedo MD ENCOUNTERS Date Type Provider Location Encounter Diag nosis - In-person encounter Office Visit Pankaj Mi MD [facility] Tobacco use, quit - In-person encounter Office Visit Byron Acevedo MD [facility] - In-person encounter Office Visit Byron Acevedo MD [facility] Microvascular anginaCardiomyopathyVitamin D deficiencyHyperlipidemiaPREDIABE JAREK;Health maintenance examinationOverweight? Sleep apnea - In-person encounter Office Visit [facility] Man[facility] Microvascular anginaTobacco use, [facility] VITAL SIGNS Date Observation Value Provider Body Mass Index (Ratio) 28.53 kg/m2 Patricia Mi MD blood pressure, diastolic 84 mm[Hg] Da jade Jelly blood pressure, systolic 132 mm[Hg] Dac ia Jelly oxygen saturation, oximetry 92 % Faith Jelly respiratory rate E&M 16 /min Faith V oss pulse rate 76 /min Faith Jelly weight E&M 156 [lb_av] Fiath Jelly height E&M 62 [in_i] Faith Jelly Body Mass Index (Ratio) 28.90 kg/m2 Deborah Acevedo MD blood pressure, cuff size regular Nadia La blood pressure, diastolic 80 mm[Hg] Nadia La blood pressure, systolic 120 mm[Hg] Deyvi La oxygen saturation, oximetry 98 % Leisamarcus La respiratory rate E&M 16 /min Leisamarcus La pulse rate 85 /min Leisamarcus La weight E&M 158 [lb_av] Leisa La height E&M 62 [in_i] Leisamarcus La Body Mass Index (Ratio) 29.26 kg/m2 Deborah Acevedo MD blood pressure, diastolic 80 mm[Hg] Da jade Jelly blood pressure, systolic 128 mm[Hg] Dac ia Jelly oxygen saturation, oximetry 95 % Faith Jelly respiratory rate E&M 146 /min Faith V oss pulse rate 77 /min Faith Jelly weight E&M 160 [lb_av] Faith Jelly height E&M 62 [in_i] Faith Jelly Body Mass Index (Ratio) 29.37 kg/m2 Deborah Acevedo MD blood pressure, cuff size regular [facility], [facility] mm[Hg] [facility], systolic 114 mm[Hg] [place] [facility] blood pressure, resting No Magy voss [facility] oxygen saturation, oximetry 97 % Lindy [facility] respiratory rate E&M 18 /min [facility] pulse rate 83 /min [facility] height E&M 62 [in_i] [facility] weight E&M 160.6 [lb_av] [facility] ALLERGIES Allergy Name Onset Date Reaction Criticality Status BENADRYL High Criticality active TRAMADOL High Criticality active CODEINE High Criticality active RESULTS Date Observation Value Provider Reference Range Interpretation Location 2 pro brain natriuretic peptide 13.1 pg/mL [facility] 0.0 - 125.0 2 iron, serum 57.0 ug/dL [facility] 25.0 - 156.0 2 iron saturation percent, serum 13.5 % [facility] 20.0 - 50.0 Low 2 iron binding capacity, total 422.8 ug/dL [facility] 250.0 - 450.0 0 vitamin b12, serum 418.7 pg/mL [facility] 211.0 - 946.0 0 very low density lipoproteins 20.0 mg/dL [facility] 5.0 - 40.0 0 LDL/HDL (low-density lipoprotein/high-d ensity lipoprotein) [facility] 1.9 [facility] lipoprotein, beta, serum, point, quantitative, calculated 119.0 (?) [facility] 0.0 - 100.0 High 0 HDL cholesterol, serum 62.0 mg/dL [facility] 45.0 - 65.0 0 cholesterol, serum 201.0 mg/dL [facility] 0.0 - 200.0 High 0 triglyceride, serum, fasting 100.0 mg/dL [facility] 0.0 - 150.0 0 ferritin, serum 151.9 ng/mL [facility] 13.0 - 150.0 High 0 C-reactive protein, serum 0.5 mg/dL [facility] 0.0 - 0.5 0 urea nitrogen/creatinin e ratio, serum 13.3 [facility] - 0 Estimated Glomerular Filtration Rate (calc) 70.7 (?) [facility] 59.0 - 0 chloride, serum 100.1 mmol/L [facility] 98.0 - 107.0 0 potassium, serum 4.4 mmol/L [facility] 3.5 - 5.1 0 sodium, serum 141.0 mmol/L [facility] 136.0 - 145.0 0 creatinine, serum 0.9 mg[facility] 0.5 - 1.0 0 carbon dioxide, venous blood 28.0 mmol/L [facility] 22.0 - 29.0 0 calcium, serum 10.1 mg/dL [facility] 8.6 - 10.2 0 urea nitrogen, blood 12.0 mg/dL [facility] 6.0 - 20.0 0 blood glucose, random 101.0 mg/dL [facility] 74.0 - 99.0 High 0 red blood cell distribution width, size density 41.6 fL [facility] - 0 immature granulocytes, percentage of total cells, blood 0.5 % [facility] - 0 nucleated red blood cells as percent of blood leukocytes 0.0 % [facility] - 0 red blood cell (erythrocyte) count, per high power field 0.0 10*3/UL [facility] - 0 eosinophils as percent of blood leukocytes 1.3 % [facility] - 0 neutrophils as percent of blood leukocytes 63.5 % [facility] - 0 Absolute Neutrophils 5.3 CELLS/UL [facility] 1.5 - 7.8 0 basophils as percent of blood leukocytes 0.5 % [facility] - 0 Absolute Basophils 0.0 CELLS/UL [facility] 0.0 - 0.2 0 monocytes as percent of blood leukocytes 5.2 % [facility] - 0 Absolute Monocytes 0.4 CELLS/UL [facility] 0.2 - 1.0 0 lymphocytes as percent of blood leukocytes 29.0 % [facility] - 0 Absolute Lymphocytes 2.4 CELLS/UL [facility] 0.9 - 3.9 0 mean platelet volume 10.4 (?) [facility] - 0 platelet count 318.0 THOUSAND/U L [facility] 100.0 - 400.0 0 mean corpuscular hemoglobin concentration, RBC 32.6 G/DL [facility] 31.0 - 38.0 0 mean corpuscular hemoglobin, RBC 29.5 pg [facility] 25.0 - 35.0 0 mean corpuscular volume, RBC 90.4 fL [facility] 75.0 - 100.0 0 hematocrit, blood 46.9 % [facility] 35.0 - 55.0 0 hemoglobin, blood 15.3 g/dL [facility] 11.5 - 16.5 0 erythrocyte count, whole blood 5.2 MILLION/UL [facility] 3.5 - 5.5 0 iron, serum 61.0 ug/dL [facility] 25.0 - 156.0 0 iron saturation percent, serum 13.7 % [facility] 20.0 - 50.0 Low 0 iron binding capacity, total 443.8 ug/dL [facility] 250.0 - 450.0 0 prothrombin time (patient) 9.8 s [facility] 9.0 - 11.5 0 international normalized ratio (INR) 0.9 [facility] 0.9 - 1.1 0 hemoglobin A1C, blood, as % of total hemoglobin 6.2 % [facility] 4.0 - 5.6 High HISTORY OF MEDICATION USE Medication Status Instructions Dates Provider Indications Com ments MONTELUKAST SODIUM 10 MG ORAL TABLET active take once daily Faith Jelly FAMOTIDINE 20 MG ORAL TABLET active take one daily Faithdash Reaves EQ OMEPRAZOLE 20 MG ORAL TABLET DELAYED RELEASE DISINTEGRATING active take one daily Faithdash Reaves ALBUTEROL SULFATE (2.5 MG/3ML) 0.083% INHALATION NEBULIZATION SOLUTION active use 3 times daily as needed Faithdash Reaves FERROUS SULFATE 325 (65 FE) MG ORAL TABLET completed ONE PER DAY - Faithdash Reaves let pt know iron is low TOPAMAX 50 MG ORAL TABLET completed one a day - Faithdash Reaves ADIPEX-P 37.5 MG ORAL CAPSULE completed one a day - Faithdash Reaves CARVEDILOL 3.125 MG TABLET active TAKE ONE TABLET BY MOUTH TWICE DAILY Kenyetta Chrun EQL VITAMIN D3 5000 UNIT ORAL CAPSULE active daily Byron Acevedo MD PRAVACHOL 20 MG ORAL TABLET completed ONE TAB. DAILY - Byron Acevedo MD ADVIL 200 MG ORAL CAPSULE completed take as directed on bottle - Byron Acevedo MD ASPIRIN ADULT LOW DOSE 81 MG ORAL TABLET DELAYED RELEASE completed One Tab By Mouth Daily - Byron Acevedo MD SOCIAL HISTORY Date Observation Value Provider number of grandchildren Pankaj Mi MD U oj Mi MD social history E&M S moking History: Marcos koch is a former smoker. Pankaj Mi MD social history reviewed E&M revi ewed - no changes required Pankaj Mi MD cigarette use yes Faith Reaves smoking status Former smoker Pankaj Mi MD social history E&M S moking History: Marcos koch currently smokes every day. Marcos koch has been counseled to quit. Byron Acevedo MD social history reviewed E&M revi ewed - no changes required Byron Acevedo MD smoking/tobacco cess ation, patient education and counseling yes Leisa Abhinav cigarette use yes Leisa Abhinav smoking status Current every day smoker L rick La social history E&M S moking History: P atient currently smokes every day. P atient has been counseled to quit. Byron Acevedo MD social history reviewed E&M revi ewed - no changes required Byron Acevedo MD smoking/tobacco cess ation, patient education and counseling yes Faith Jelly cigarette use yes Faith Jelly smoking status Current every day smoker D acdash Jelly smoking/tobacco cess ation, patient education and counseling yes Byron Acevedo MD social history E&M S moking History: P atient currently smokes every day. P atient has been counseled to quit. Byron Acevedo MD social history reviewed E&M revi ewed - no changes required Byron Acevedo MD number of grandchildren Byron Alcaraz cigarette use yes Lindy cain smoking status Current every day smoker T mavis Alcaraz FAMILY HISTORY Family Member Condition Father Family History of Hy pertension: Mother Family History of Hy pertension: INSURANCE PROVIDERS Payer name Policy type / Coverage type [employer] ID [employer] MEDICAID Medicaid [id number] ADVANCE DIRECTIVES Name Date DISCUSSED - NO DECISION MADE TREATMENT PLAN Date Name Performer Cardiology follow up :possible cause of occasional chest pains. Pankaj Mi MD Cardiology follow up Pankaj bazzi MD Cardiology Follow up:will try di et pills Byron Acevedo MD Cardiology Follow up : e f 42 by cath, no ai or mr, on coreg Byron Acevedo MD Cardiology Follow up :CHOL: 201.0 (04/16/2016) HDL: 62.0 (04/16/2016) T.0 (04/16/2016) Byron Acevedo MD Cardiology Follow up :This patient has angina (defined as chest pain, chest discomfort, or pain in arms, neck, jaw, shoulder, or back, and may include symptoms of shortness of breath, fatigue, dizziness, nausea, or diaphoresis) of [place] Cardiovascular Society Class III (defined as symptoms with everyday living activities, i.e. moderate limitation) or [place] Cardiovascular Society Class IV (defined as inability to perform any activity without angina or angina at rest, i.e. severe limitation). T his patient?s angina is disabling and in my opinion is not readily amenable to surgical intervention by PTCA or cardiac bypass because the patient's coronary anatomy is not readily amenable to such procedures. Byron Acevedo MD Cardiology Follow up : g ot 1.5 infusions, had rxn Byron Acevedo MD Cardiology Follow up : M inimal Obstructive Airways Disease N o restriction or hyperinflation. T he diffusing capacity is normal. n eg cxr Byron Acevedo MD Cardiology Follow up :nml susana n ml b12 Byron Acevedo MD Cardiology Follow up : m any sx will moira Acevedo MD Cardiology hospital follow up:ma ny sx will moira Acevedo MD Cardiology hospital follow up:go t 1.5 infusions, had rxn Byron Acevedo MD Cardiology hospital follow up:Minimal Obstructive Airways Disease N o restriction or hyperinflation. T he diffusing capacity is normal. n eg cxr Byron Acevedo MD Cardiology hospital follow up:neg cor angio wiht ef 40, neg cxry, will try coreg and then ecp Byron Acevedo MD Cardiology hospital follow up:ef 42 by cath, no ai or mr, will try coreg Byron Acevedo MD Cardiology hospital follow up:nm l b12 Byron Acevedo MD [facility]olog[facility] first, one reivew ehco [facility] one reivew ehco:neg trop and bnp and cxr in er, ddiemr neg 15 h as had stress test st dayanna in past, with echo, but not sure 2014? g iven abnl ekg i think we shojuld move on to cath Byron Acevedo MD Date Name BASIC METABOLIC PANE L W/EGFR HEMOGLOBIN A1c IRON AND TOTAL IRON BINDING CAPACITY FERRITIN CBC (INCLUDES DIFF/P LT) PROBNP, N TERMINAL VITAMIN D, 25-HYDROX Y, LC/MS/MS Complete Echo IRON AND TOTAL IRON BINDING CAPACITY DLCO - 86635 FRC - 87994 FVC - 42254 Sleep Study Home Holter Monitor 24 Hr Sleep Study Home PROTHROMBIN TIME WIT H INR CBC (INCLUDES DIFF/P LT) BASIC METABOLIC PANE L W/EGFR Cardiac Cath - Left - GC Complete Echo DLCO - 15567 FRC - 12241 FVC - 36097 VITAMIN D, 25-HYDROX Y, LC/MS/MS HEMOGLOBIN A1c VITAMIN B12 IRON AND TOTAL IRON BINDING CAPACITY C-REACTIVE PROTEIN LIPID PANEL HISTORY OF PROCEDURES Procedure Date Procedure Name Provider Procedure Notes S tatus EKG Pankaj Mi MD completed FVC / MVV with bronchodilator - 94958 Byron Acevedo MD completed FRC - 68175 Byron Acevedo MD complet ed SpO2 - 26030 Byron Acevedo MD comple pam DLCO - 70206 Byron Acevedo MD comple apm SNOMED-CT: [id number] Current Medications Documented Byron Acevedo MD completed Holter, 24 or 48 Byron Acevedo MD co mpleted SNOMED-CT: [id number] Current Medications Documented Faith Jelly completed FVC - 93524 Byron Acevedo MD complet ed [facility] - 05506 Byron Acevedo MD complet ed DLCO - 35146 Byron Acevedo MD comple pam EKG Byron Acevedo MD complete d SNOMED-CT: [id number] [id number] Current Medications Documented Byron Acevedo MD completed
--- OUTSIDE RECORDS SUMMARY | 2024-07-26 19:33 | XMS_ITS | Clinical Summary ---
Author Organization [facility] Address [address] [place] [address] Care Team Providers Care Skein Inspector Name Role Phone Jose Yu MD Primary Care Provider [phone] Claudia Parisi PERSONNEL CLERKS SUPERVISOR Unavailable Allergies Active Allergy Reactions Criticality Noted Date [...] within 12 hours or as directed by MD. Collaborating physician Baldomero Wilkinson MD 30 patch [...] Hyperlipidemia associated with type 2 diabetes m celi 09/20/2023 Assessment & Plan (03/01/2024 1:11 PM ORIENTAL MEDICINE PRACTITIONER): Lab Results Component Value Date CHOL 123 [...] 06/30/2023 Assessment & Plan (03/01/2024 1:12 PM ORIENTAL MEDICINE PRACTITIONER): Wt Readings from Last 3 Encounters: 03/01/24 [...] consultation Assessment & Plan (06/30/2023 4:13 PM ORIENTAL MEDICINE PRACTITIONER): Wt Readings from Last 3 Encounters: 06/30/23 [...] 03/06/2023 History of colonoscopy with polypectomy 03/04/20 23 Depression 11/22/2022 Assessment & Plan (07/18/2023 3:20 [...] hyperlipidemia Assessment & Plan (03/01/2024 1:13 PM ORIENTAL MEDICINE PRACTITIONER): Lab Results Component Value Date HGBA1C 8.3 [...] cardiomyopathy Assessment & Plan (06/30/2023 4:16 PM ORIENTAL MEDICINE PRACTITIONER): Lab Results Component Value Date HGBA1C 7.7 [...] office Assessment & Plan (06/13/2022 1:21 PM ORIENTAL MEDICINE PRACTITIONER): Lab Results Component Value Date HGBA1C 6.8 [...] 07/02/2021 Assessment & Plan (07/02/2021 1:56 PM ORIENTAL MEDICINE PRACTITIONER): Hearing test - [facility] Coronary artery disease of n ative artery of [place] heart with stable angina pectoris 08/30/2020 Assessment [...] discharge. Assessment & Plan (06/30/2023 4:04 PM ORIENTAL MEDICINE PRACTITIONER): Continue ASA, cardio follow up Former tobacco use 08/30/2020 Assessment & Plan (07/18/2023 3:19 AM CDT): Twenty-five pack year history, quit in 2018. Assessment & Plan (03/13/2022 12:37 PM ORIENTAL MEDICINE PRACTITIONER): Discussed smoking cessatin - pt ready to quit. Will start lexapro today for depression and may need to add wellbutrin as well for smoking cessation in the fuiture Dilated cardiomyopathy 08/30/2020 Assessment & Plan (07/18/2023 3:19 AM CDT): Continue as planned under coronary artery disease. Assessment & Plan (06/30/2023 4:05 PM ORIENTAL MEDICINE PRACTITIONER): Normal TTE recently CONCLUSIONS: Normal left ventricular [...] function. 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 Clifton's office back for follow up Chronic maxillary sinusitis 07/02/2021 07/18/2023 Assessment & Plan (07/02/2021 1:53 PM ORIENTAL MEDICINE PRACTITIONER): Doxycycline twice daily for 10 days Flonase 2 sprays into each nostril while looking down over the sink, do not sniff in or blow nose after use for at least 30 minutes daily Otalgia of right ear 07/02/2021 024 Assessment & Plan (07/02/2021 1:53 PM ORIENTAL MEDICINE PRACTITIONER): Doxycycline twice daily for 10 days Flonase 2 sprays into each nostril while looking down over the sink, do not sniff in or blow nose after use for at least 30 minutes daily Dental contact information provided TMJ discussed and Handout provided Chest discomfort 08/30/2020 07/18/2023 Primary osteoarthritis of right knee 08/22/2020 07/18/2023 Encounters Date Type Department Care Team Description 07/06/2024 Telephone [facility] Primary Care at [facility] [address] [facility] [address] [place] [address] Jose Yu MD HATTIE Questions 07/06/2024 Orders Only [facility] Cardiology [address] [place] [address] Claudia Franklin 07/05/2024 7:27 PM CDT - 07/06/2024 3:34 PM CDT Emergency [facility] Acute Medicine [address] [place] [address] Domenic Lucero MD Avagyan, Juletta, MD Sinha, Chandni, MD Chest pain, unspecified type (Primary Dx) Discharge Disposition: Discharge to home or self care 07/05/2024 1:52 PM CDT - 07/05/2024 11:59 PM CDT Hospital Encounter [facility] Emergency, Room R Discharge Disposition: Discharge to home or self care 06/02/2024 Telephone [facility] Primary Care at [address] [place] [address] Jose Yu MD 05/26/2024 3:11 PM ORIENTAL MEDICINE PRACTITIONER - 05/26/2024 11:59 PM ORIENTAL MEDICINE PRACTITIONER Hospital Encounter [facility] Imaging Center [address] [place] [address] History of nicotine use Discharge Disposition: Discharge to home or self care 05/26/2024 3:11 PM ORIENTAL MEDICINE PRACTITIONER - 05/26/2024 11:59 PM ORIENTAL MEDICINE PRACTITIONER Hospital Encounter [facility] Respiratory [address] [place] [address] Mild persistent asthma without complication Discharge Disposition: Discharge to home or self care 05/14/2024 [facility] Post Discharge Follow up phone call [facility] Surgery Care 1 [place] [address] Ne Johnson 05/10/2024 Telephone [facility] Primary Care at [address] [place] [address] Jose Yu MD HATTIE Questions 05/08/2024 1:00 AM ORIENTAL MEDICINE PRACTITIONER - 05/10/2024 2:55 PM ORIENTAL MEDICINE PRACTITIONER Hospital Encounter [facility] IMU [address] [place] [address] Josefina Barnett MD [facility], DO Bre Porter Veronica O., MD Acute chest pain (Primary Dx); Newly diagnosed diabetes (HCC) Discharge Disposition: Discharge to home or self care from Last 3 Months Immunizations Immunization Administration Dates Next Due Influenza, Quadrivalent, Spl it, Intramuscular 02/06/2015 Influenza, Quadrivalent, Spl it, Preservative Free, Intramuscular 01/16/2023,01/26/2018 Influenza, Unspecified 02/14/2022,2021(Deferred: Patient Refused),06/26/2021(Deferred: Patient Refused) Moderna SARS-CoV-2 Monovalen t Vaccination (12+ YRS) 08/01/2020,06/14/2020 Tdap 02/20/2015 Surgical History Surgery Date Site/Laterality Comments HYSTERECTOMY ECTOPIC SURGERY HERNIA REPAIR COLONOSCOPY 04/28/2012 - 04/27/2013 COLONOSCOPY 02/26/2023 Medical History Medical History Date Comments Asthma Asthma Hypertension Diabetes mellitus (HCC) Family History Medical History Relation Name Comments Diabetes Father Hypertension Father Hypertension Mother Arthritis Other 1 Family history of Arthritis; Hypertension Other 2 Family history of Hypertension; Diabetes Other 3 Family history of Diabetes mellitus; Heart disease Other 4 Family history of Heart problems; Diabetes Paternal Grandmother Lupus Paternal Grandmother Relation Name Status Comments Father Mother Other 1 Other 2 Other 3 Other 4 Paternal Grandmother Social History Tobacco Use Types Packs/Day Years Used Date Smoking Tobacco: Former Cigarettes 1 25 0 09/03/1992 - 09/03/2017 Smokeless Tobacco: Never Tobacco Cessation:Counseling Given: Not Answered Alcohol Use Standard Drinks/Week Comments Never 0 (1 standard drink = 0.6 oz pur e alcohol) [facility] [employer] Answer Date Recorded In the past 12 months has e [employer], gas, oil, or water [employer] threatened to shut off services in your [...] 09/25/2023 How often do you attend chur or pentecostal services? Never 09/25/2023 Do you belong to any clubs o r organizations such as sikhism groups, unions, fraternal or athletic groups, or [...] any time in the past 12 m [facility], were you homeless or living in a [...] on file Legal Sex Female 3:43 AM ORIENTAL MEDICINE PRACTITIONER Gender Identity Not on file Sexual Orientation Not on file Obstetrics History Para Term AB IAB SAB Ectopic Multiple Livin g Live Births 2 2 Date Outcome GA Total Labor Labor/2nd/3rd Weight Sex Type Anes PTL Julia A1 A5 Name Clin Para Para Last Filed Vital Signs Vital Sign Reading [...] 07/05/2024 11:39 PM CDT Plan of Treatment Health Maintenance Due Date Last Done Comments Dilated Eye Exam 1965 Foot Exam 1965 Hepatitis B Screening 1985 Pneumococcal vaccine <65 (1 of 2 - PCV) 1986 Zoster Vaccine (1 of 2) 2017 Breast Cancer Screening-Mammogram 08/23/2021 08/23/2020, 08/23/2020, 08/23/2020 Covid-19 Vaccine (2023-2 5 season) 2023 05/01/2021, 08/01/2020, 06/14/2020 Influenza Vaccine (#1) 2023 3, 02/14/2022, 01/26/2018, Additional history exists Albumin Creatinine Ratio, Urine 06/29/2024 Regular Well Visit/Exam 18-64 06/29/2024 06/30/2023 Hemoglobin A1C 08/29/2024 03/01/2024, 05/2 12/2023, 06/30/2023, Additional history exists Lipid Panel 09/23/2024 09/24/2023, 06/27, 07/01/2023, Additional history exists DTaP/Tdap/Td Vaccine (2 - Td or Tdap) 02/20/2025 02/20/2015 Depression Screening 03/01/2025 03/01/2024, 06/30/2023, 06/13/2022, Additional history exists Lung Cancer Screening 05/27/2025 05/26/2024, 023 eGFR 07/05/2025 07/05/2024, 04/28, 05/08/2024, Additional history exists Colon Cancer Screening-Colonoscopy 02/26/2033 02/26/2023 Colon Cancer Screening-CT Colonography Discontinued 02/26/2023 Colon Cancer Screening-DNA Stool Discontinued 02/27/20 Colon Cancer Screening-FIT Discontinued 02/26/2023 Colon Cancer Screening-Sigmoidoscopy Discontinued 02/26/2023 Hepatitis C Screening Completed 07/01/2023 Procedures Procedure Name Priority Date/Time Associated Diagnosis [...] Read Routine (OP Routine) 05/26/2024 4:39 PM ORIENTAL MEDICINE PRACTITIONER History of nicotine use PULMONARY FUNCTION TEST (PFT) Routine 05/26/2024 4:05 PM ORIENTAL MEDICINE PRACTITIONER Mild persistent asthma without complication POCT GLUCOSE DEVICE Routine 05/10/2024 12:30 PM ORIENTAL MEDICINE PRACTITIONER POCT GLUCOSE DEVICE Routine 05/10/2024 8 :26 AM ORIENTAL MEDICINE PRACTITIONER POCT GLUCOSE DEVICE Routine 05/10/2024 2 :29 AM ORIENTAL MEDICINE PRACTITIONER POCT GLUCOSE DEVICE Routine 05/09/2024 8 :51 PM ORIENTAL MEDICINE PRACTITIONER POCT GLUCOSE DEVICE Routine 05/09/2024 5 :07 PM ORIENTAL MEDICINE PRACTITIONER XR CHEST 1 VIEW IP Routine 05/09/2024 3:48 PM ORIENTAL MEDICINE PRACTITIONER POCT GLUCOSE DEVICE Routine 05/09/2024 12:17 PM ORIENTAL MEDICINE PRACTITIONER POCT GLUCOSE DEVICE Routine 05/09/2024 8:02 AM ORIENTAL MEDICINE PRACTITIONER EGFR Routine 05/09/2024 7:33 AM ORIENTAL MEDICINE PRACTITIONER DIFFERENTIAL AUTO Routine 05/09/2024 7:3 3 AM ORIENTAL MEDICINE PRACTITIONER COMPREHENSIVE METABOLIC PANEL Routine 05/09/2024 7:33 AM ORIENTAL MEDICINE PRACTITIONER CBC WITH AUTO DIFFERENTIAL Routine 05/09/2024 7:33 AM ORIENTAL MEDICINE PRACTITIONER POCT GLUCOSE DEVICE Routine 05/09/2024 2 :52 AM ORIENTAL MEDICINE PRACTITIONER POCT GLUCOSE DEVICE Routine 05/08/2024 8 :47 PM ORIENTAL MEDICINE PRACTITIONER POCT GLUCOSE DEVICE Routine 05/08/2024 4 :59 PM ORIENTAL MEDICINE PRACTITIONER POCT GLUCOSE DEVICE Routine 05/08/2024 12:03 PM ORIENTAL MEDICINE PRACTITIONER D-DIMER, QUANTITATIVE Routine 05/08/2024 9:25 AM ORIENTAL MEDICINE PRACTITIONER INFLUENZA A/B, RSV, AND COVID-19 PCR Routine 05/08/2024 8:53 AM ORIENTAL MEDICINE PRACTITIONER POCT GLUCOSE DEVICE Routine 05/08/2024 8 :08 AM ORIENTAL MEDICINE PRACTITIONER TROPONIN T HIGH-SENSITIVITY 6-HOUR Timed 05/08/2024 8:03 AM ORIENTAL MEDICINE PRACTITIONER TROPONIN T HIGH-SENSITIVITY 4-HR Timed 05/08/2024 5:45 AM ORIENTAL MEDICINE PRACTITIONER TROPONIN T HIGH-SENSITIVITY 2-HOUR Timed 05/08/2024 3:34 AM ORIENTAL MEDICINE PRACTITIONER EGFR STAT 05/08/2024 1:28 AM ORIENTAL MEDICINE PRACTITIONER PRO B-TYPE NATRIURETIC PEPTIDE Add-On 05/08/2024 1:28 AM ORIENTAL MEDICINE PRACTITIONER DIFFERENTIAL AUTO STAT 05/08/2024 1:2 8 AM ORIENTAL MEDICINE PRACTITIONER TROPONIN T HIGH-SENSITIVITY SERIES (BASELINE, 2HR, 4HR, 6HR) STAT 05/08/2024 1:28 AM ORIENTAL MEDICINE PRACTITIONER COMPREHENSIVE METABOLIC PANEL STAT 05/08/2024 1:28 AM ORIENTAL MEDICINE PRACTITIONER CBC WITH AUTO DIFFERENTIAL STAT 05/08/2024 1:28 AM ORIENTAL MEDICINE PRACTITIONER XR CHEST PA LATERAL 2 VIEWS ED 05/08/2024 1:04 AM ORIENTAL MEDICINE PRACTITIONER ECG 12-LEAD STAT 05/08/2024 12:53 AM ORIENTAL MEDICINE PRACTITIONER POCT HEMOGLOBIN A1C Routine 03/01/2024 1 :08 PM ORIENTAL MEDICINE PRACTITIONER Type 2 diabetes mellitus with hyperlipidemia (HCC) LIPID PANEL Routine 09/24/2023 5:49 AM CDT HEPATITIS PANEL, ACUTE Routine 07/01/2023 11:14 AM ORIENTAL MEDICINE PRACTITIONER Elevated alkaline phosphatase level ALBUMIN CREATININE RATIO, URINE Routine 06/30/2023 12:00 AM ORIENTAL MEDICINE PRACTITIONER Type 2 diabetes mellitus with hyperlipidemia (HCC) COLONOSCOPY 02/26/2023 12:07 PM CDT from Last 3 Months or Most Recently Relevant to Health Maintenance Results * (ABNORMAL) POCT glucose (07/06/2024 12:57 PM CDT) [facility] Glucose, POC 203(H) 70 - 199 mg/dL Blood 07/06/2024 12:5 7 PM CDT 07/06/2024 12:57 PM CDT Leanna Daniels MD LAB POCT ORDERABLES - DEVICE Fi nal Result [facility] [place]) [address] [facility] Department [place] [address] * NM MPI SPECT (Rest and/or Stress) [...] Sukumar Pena M.D. CH: LIZ Report ID: [id number] Reading Location: [id number] Procedure Note Sukumar Pena Jr., MD - [...] Sukumar Pena M.D. CH: LIZ Report ID: [id number] Reading Location: [id number] Heaven Quispe MD IMG NM PROCEDURES Final Resul t * Stress Test for Myocardial Perfusion (07/06/2024 11:50 AM CDT) Anatomical Region Laterality Modality Nuclear Medicine 07/06/2024 6:35 AM CDT Narrative 07/06/2024 2:05 PM CDT [address] [place] [address] [employer] Report Patient Name: JACINTA SAM : 1965 Study Date: 07/06/2024 6:35:00 AM Gender: F Tech: claudia franklin Location: [id number] Ref Provider: HEAVEN QUISPE Height(Cm): 152 BSA: 2.59 Weight(Kg): 158 Heart Rate: 139 Order Provider: HEAVEN QUISEP PROCEDURES: Pharmacologic SPECT Report.: Myocardial perfusion imaging [...] Procedure Note Chayito Groves MD - 07/06/[address] [address] [employer] Report Patient Name: JACINTA SAM : 1965 Study Date: 07/06/2024 6:35:00 AM Gender: F Tech: claudia franklin Location: [id number] [facility] Provider: HEAVEN QUISPE Height(Cm): 152 BSA: 2.59 [...] Chayito Groves MD 07/06/2024 1:35:20 PM CDT Heaven Quispe MD CV STRESS PROCEDURES Final Re sult * Troponin T high-sensitivity 6-hour (07/06/2024 2:18 AM CDT) Trop T hs <6 <=14 ng/L Comment: Interpretive Data For further hscTnT resources including the diagnostic algorithm and an aid in interpretation, copy and paste this link: https://nrl.Yorder.org/show/hsTrop Current Interpretive Data last revised 2020. Trop T hs delta 0 ng/L [facility]) Trop T hs interp Insignificant [facility]) Blood 07/06/2024 2:18 AM CDT 07/06/2024 3:17 AM CDT Domenic Lucero MD LAB BLOOD ORDERABLES Final R esult Performing Organization Address City/[facility]/ZIP Co de Phone Number [facility] ([place]) 1 [facility] [place] [address] * Troponin T high-sensitivity 4-hour (07/06/2024 12:08 AM CDT) Trop T hs <6 <=14 ng/L Comment: Interpretive Data For further hscTnT resources including the diagnostic algorithm and an aid in interpretation, copy and paste this link: https://nrl.Yorder.org/show/hsTrop Current Interpretive Data last revised 2020. Trop T hs delta 0 ng/L [facility] ([place]) Trop T hs interp Insignificant [facility]) Blood 07/06/2024 12:0 8 AM CDT 07/06/2024 12:21 AM CDT Domenic Lucero MD LAB BLOOD ORDERABLES Final R esult [facility] [address] [facility] Department [place] [address] * Troponin T high-sensitivity 2-hour (07/05/2024 9:10 [...] ORDERABLES Final R esult Performing Organization Address [facility] Co de Phone Number [facility] [address] [facility] Department [place] [address] * ECG 12 lead (07/05/2024 8:50 PM CDT) 07/05/2024 8:50 PM CDT Narrative [facility] - 07/06/2024 7:27 AM CDT Vent Rate: 89 bpm RR Interval: 674 msec KS Interval: 150 msec QRS Duration: 101 msec QT Interval: 363 msec QTC Interval: 409 msec P-R-T Steele: 12 - -43 - 16 degrees IMPRESSION: SINUS RHYTHM POSSIBLE RIGHT VENTRICULAR CONDUCTION DELAY [RSR (QR) IN V1/V2] INFERIOR MYOCARDIAL INFARCTION , PROBABLY OLD WITH POSTERIOR EXTENSION [40+ ms Q WAVE AND/OR ST/T ABNORMALITY IN II/aVFPROMINE WAVE IN V1/V2] ABNORMAL ECG NO CHANGE FROM PREVIOUS TRACING NOTED Electronically Signed By: Yon Vincent MD Domenic Lucero MD ECG ORDERABLES Final Result Performing Organization Address [facility]/ZIP Co de Phone Number [facility] [employer] [facility] * XR Chest 1 View (07/05/2024 7:59 PM CDT) Anatomical Region Laterality Modality Body, Chest N/A Computed Radiogr aphy 07/05/2024 8:34 PM CDT Narrative 07/05/2024 8:36 PM CDT EXAM DESCRIPTION: XR CHEST 1 VIEW REASON FOR STUDY: chest pain Pt arrives via EMS from home with complaints of chest pain since 1844. Pt is has chest pain radiating down [...] Phillip Peace M.D. AR: MANASA Report ID: [id number] Reading Location: [id number] Procedure Note Phillip Peace MD - 07/05/2024 EXAM DESCRIPTION: XR CHEST 1 VIEW REASON FOR STUDY: chest pain Pt arrives via EMS from home with complaints of chest pain since 1844.Pt is has chest pain radiating down both [...] Phillip Peace M.D. AR: MANASA Report ID: [id number] Reading Location: [place] [address] Result [facility] Domenic Luceor MD IMG XR PROCEDURES Final Resu lt * ECG 12 lead (07/05/2024 7:40 PM CDT) 07/05/2024 7:40 PM CDT Narrative [facility] - 07/06/2024 7:27 AM CDT Vent Rate: 90 bpm RR Interval: 661 msec KS Interval: 171 msec QRS Duration: 88 msec QT Interval: 363 msec QTC Interval: 411 msec P-R-T Steele: 9 - -30 - 21 degrees IMPRESSION: [...] ECG ORDERABLES Final Result Performing Organization Address City/State/[facility] Co de Phone Number [facility] * Troponin T high-sensitivity series (baseline, 2hr, 4hr, 6hr) (07/05/2024 7:35 PM CDT) Trop T hs <6 <=14 ng/L Comment: Interpretive Data For further hscTnT resources including the diagnostic algorithm and an aid in interpretation, copy and paste this link: https://nrl.testcatalog.org/show/hsTrop Current Interpretive Data last revised 2020. Blood 07/05/2024 7:35 PM CDT 07/05/2024 7:44 PM CDT Domenic Lucero MD LAB BLOOD ORDERABLES Final R esult [facility] [address] [facility] Department [place] [address] * eGFR (07/05/2024 7:35 PM CDT) eGFR >90 >=60 mL/min/1. 73 m2 Comment: [...] ORDERABLES Final R esult Performing Organization Address City/[facility]/ZIP Co de Phone Number [facility] [address] [facility] Department [place] [address] * Differential, auto (07/05/2024 7:35 PM CDT) Neutrophil abs 4.7 1.5 - 6.5 K/cumm Imm gran abs 0.0 0.0 - 0.1 K/cumm [facility]) Lymphocyte abs 2.5 0.8 - 3.3 K/cumm [facility] ([place]) Monocyte abs 0.4 0.2 - 0.8 K/cumm [facility] ([place]) Eosinophil abs 0.2 0.0 - 0.5 K/cumm [...] revised on 2017. Basophil pct 0.5 % [facility] ([place]) Comment: Interpretive Data Percent cell count reference ranges are not reported, since discordance with absolute values may lead to misinterpretation of CBC data. Current Interpretive Data was last revised on 2017. Blood 07/05/2024 7:35 PM CDT 07/05/2024 7:44 PM CDT us Domenic Lucero MD LAB BLOOD ORDERABLES Final R esult [facility] [address] [facility] Department [place] [address] * Pro B-type natriuretic peptide (07/05/2024 7:35 [...] Heart J. 2006:27:330-337. 2. Nikolas RW, Nolan SMITH. J. AM Lele Cardiol: Cardiovasc Imag. 2009;2: 216- 225. Interpretive Data Last Revised Date: 2017. Blood 07/05/2024 7:35 PM CDT 07/05/2024 7:44 PM CDT us Domenic Lucero MD LAB BLOOD ORDERABLES Final R esult [facility] [place]) 2 [employer] [facility] Department [place] [address] * CBC with auto differential (07/05/2024 7:35 PM CDT) Pathologist [facility] WBC 7.8 3.8 - 9.9 K/cumm Hgb 13.8 11.9 - 15.5 g/dL [facility]) Hct 41.2 35.6 - 45.5 % [facility]) Plt 295 150 - 400 K/cumm [facility]) MPV 10.0 9.1 - 12.3 fL [facility] RBC 4.91 3.90 - 5.20 M/cumm [facility]) MCV 83.9 81.3 - 96.4 fL [facility]) MCH 28.1 27.1 - 33.3 pg [facility]) MCHC 33.5 32.3 - 35.7 g/dL [facility]) RDW CV 11.9 11.1 - 14.9 % [facility] RDW SD 36.4 35.7 - 48.1 fL [facility] NRBC abs 0.00 0.00 - 0.01 K/cumm [facility]) Blood 07/05/2024 7:35 PM CDT 07/05/2024 7:44 PM CDT Domenic Lucero MD LAB BLOOD ORDERABLES Final R esult [facility]) [address] [facility] [place] [address] * aPTT (07/05/2024 7:35 PM CDT) aPTT 32 28 - 38 sec [facility]) Comment: Interpretive Data Heparin therapeutic range: 66.0 - 100.0 seconds. Range based on correlation with therapeutic heparin activity range of 0.3 - 0.7 Units/mL. Current interpretive data was last revised on 2023. Blood 07/05/2024 7:35 PM CDT 07/05/2024 7:44 PM CDT Domenic Lucero MD LAB BLOOD ORDERABLES Final R esult [facility] 1 [facility] [place] [address] * Protime-INR (07/05/2024 7:35 PM CDT) PT 10.9 9.7 - 13.0 sec [facility] ([place]) INR 1.01 0.90 - 1.20 [facility] Comment: Interpretive data Oral anticoagulant therapeutic ranges: Venous thromboembolism prophylaxis or treatment: 2.0-3.0 CARDIOLOGY Standard range: 2.0-3.0 High-intensity range: 2.5-3.5 Refer to indication-specific guidelines for appropriate target ranges for prosthetic heart valve replacement. Current interpretive data was last revised on 2019. Blood 07/05/2024 7:35 PM CDT 07/05/2024 7:44 PM CDT Domenic Lucero MD LAB BLOOD ORDERABLES Final R esult [facility]) 1 [facility] [place] [address] * D-dimer, quantitative (07/05/2024 7:35 PM CDT) D-Dimer <215 <=499 ng/mL FEU [facility] ([place]) Comment: Interpretive data FDA approved the D-dimer, [...] BLOOD ORDERABLES Final R esult [facility] ([place]) [address] [place] [address] * Magnesium (07/05/2024 7:35 PM CDT) Pathologist [facility] Magnesium 2.0 1.4 - 2.5 mg/dL Blood 07/05/2024 7:35 PM CDT 07/05/2024 7:44 PM CDT Domenic Lucero MD LAB BLOOD ORDERABLES Final R esult Performing Organization Address [facility] Co de Phone Number [facility]) [address] [place] [address] * Lipase (07/05/2024 7:35 PM CDT) Pathologist [facility] Lipase 65 10 - 99 Units/L Blood 07/05/2024 7:35 PM CDT 07/05/2024 7:54 PM CDT Domenic Lucero MD LAB BLOOD ORDERABLES Final [facility] Performing Organization Address [facility] Co de Phone Number [facility] ([place]) [address] [place] [address] * (ABNORMAL) Comprehensive metabolic panel (07/05/2024 7:35 PM CDT) Pathologist [facility] Sodium 133(L) 135 - 145 mmol/L Potassium, pl 3.9 3.3 - 4.9 mmol/L [facility] ([place]) Chloride 99 97 - 110 mmol/L [facility] ([place]) CO2 24 22 - 32 mmol/L [facility] ([place]) Anion gap 10 2 - 15 mmol/L [facility] ([place]) BUN 8 6 - 25 mg/dL [facility] ([place]) Creatinine 0.66 0.60 - 1.10 mg/dL [facility]) Glucose 231(H) 70 - 199 mg/dL [facility]) [...] Final R esult [facility] [address] [facility] [facility] [place] [address] * CT Lung Cancer Screening (05/26/2024 4:39 PM ORIENTAL MEDICINE PRACTITIONER) Anatomical Region Laterality Modality Chest N/A Computed Tomogra phy 05/28/2024 3:29 PM ORIENTAL MEDICINE PRACTITIONER Narrative 05/28/2024 3:46 PM ORIENTAL MEDICINE PRACTITIONER EXAM DESCRIPTION: CT LUNG CANCER SCREENING REASON [...] Abdon Paz M.D. RB: RANDA Report ID: [id number] Reading Location: [id number] Procedure Note Abdon Paz MD - 05/28/2024 [...] Abdon Paz M.D. RB: RANDA Report ID: [id number] Reading Location: [id number] Jose Yu MD IM CT PROCEDURES Final Result * Pulmonary Function Test - (05/26/2024 4:05 PM ORIENTAL MEDICINE PRACTITIONER) Anatomical Region Laterality Modality PFT 05/26/2024 3:21 PM ORIENTAL MEDICINE PRACTITIONER Impressions 05/27/2024 8:20 PM ORIENTAL MEDICINE PRACTITIONER 1. Normal spirometry and lung volumes 2. Normal diffusion capacity Electronically signed by Blaise Hurst MD Pulmonary & Critical Care Narrative 05/27/2024 8:20 PM ORIENTAL MEDICINE PRACTITIONER PULMONARY FUNCTION TESTS Jacinta Sam 59 y.o. [...] * (ABNORMAL) POCT glucose (05/10/2024 12:30 PM ORIENTAL MEDICINE PRACTITIONER) Glucose, POC 273(H) 70 - 199 mg/dL Blood 05/10/2024 12:3 0 PM ORIENTAL MEDICINE PRACTITIONER 05/10/2024 12:30 PM ORIENTAL MEDICINE PRACTITIONER Amor Hyde DO LAB POCT ORDERABLES - DEVICE Final Result Performing Organization Address [facility] Co de Phone Number [facility] ([place]) 1 [facility] [place] [address] * POCT glucose (05/10/2024 8:26 AM ORIENTAL MEDICINE PRACTITIONER) Glucose, POC 194 70 - 199 mg/dL Blood 05/10/2024 8:26 AM ORIENTAL MEDICINE PRACTITIONER 05/10/2024 8:26 AM ORIENTAL MEDICINE PRACTITIONER Amor Hyde DO LAB POCT ORDERABLES - DEVICE Final Result [facility] ([place]) 1 [facility] [place] [address] * POCT glucose (05/10/2024 2:29 AM ORIENTAL MEDICINE PRACTITIONER) Glucose, POC 133 70 - 199 mg/dL Blood 05/10/2024 2:29 AM ORIENTAL MEDICINE PRACTITIONER 05/10/2024 2:29 AM ORIENTAL MEDICINE PRACTITIONER Amor Hyde DO LAB POCT ORDERABLES - DEVICE Final Result Performing Organization Address [facility] Co de Phone Number YARI CHAPA ([place]) 1 [facility] [place] [address] * POCT glucose (05/09/2024 8:51 PM ORIENTAL MEDICINE PRACTITIONER) Glucose, POC 183 70 - 199 mg/dL Blood 05/09/2024 8:51 PM ORIENTAL MEDICINE PRACTITIONER 05/09/2024 8:51 PM ORIENTAL MEDICINE PRACTITIONER Amor Hyde DO LAB POCT ORDERABLES - DEVICE Final Result Performing Organization Address [facility] de Phone Number YARI CHAPA ([place]) 1 [facility] [place] [address] * (ABNORMAL) POCT glucose (05/09/2024 5:07 PM ORIENTAL MEDICINE PRACTITIONER) Glucose, POC 211(H) 70 - 199 mg/dL Blood 05/09/2024 5:07 PM ORIENTAL MEDICINE PRACTITIONER 05/09/2024 5:07 PM ORIENTAL MEDICINE PRACTITIONER Amor Hyde DO LAB POCT ORDERABLES - DEVICE Final Result Performing Organization Address [facility] Co de Phone Number [facility] ([place]) 1 [facility] [place] [address] * XR CHEST 1 VIEW PORTABLE (05/09/2024 3:48 PM ORIENTAL MEDICINE PRACTITIONER) Anatomical Region Laterality Modality Body, Chest N/A Computed Radiogr aphy 05/09/2024 5:11 PM ORIENTAL MEDICINE PRACTITIONER Narrative 05/09/2024 5:44 PM ORIENTAL MEDICINE PRACTITIONER EXAM DESCRIPTION: XR CHEST 1 VIEW REASON [...] Mustapha Sheth M.D. KT: MICHAELA Report ID: [id number] Reading Location: [id number] Procedure Note Mustapha Sheth MD - 05/09/2024 [...] Mustapha Sheth M.D. KT: MICHAELA Report ID: [id number] Reading Location: [id number] Amor Romeo [facility] DO IMG XR PROCEDURES Dasha l Result * POCT glucose (05/09/2024 12:17 PM ORIENTAL MEDICINE PRACTITIONER) Glucose, POC 179 70 - 199 mg/dL Blood 05/09/2024 12:1 7 PM ORIENTAL MEDICINE PRACTITIONER 05/09/2024 12:17 PM ORIENTAL MEDICINE PRACTITIONER Amor Hyde DO LAB POCT ORDERABLES - DEVICE Final Result YARI Lanza[place]) 1 [facility] [place] [address] * POCT glucose (05/09/2024 8:02 AM ORIENTAL MEDICINE PRACTITIONER) Glucose, POC 181 70 - 199 mg/dL Blood 05/09/2024 8:02 AM ORIENTAL MEDICINE PRACTITIONER 05/09/2024 8:02 AM ORIENTAL MEDICINE PRACTITIONER Amor Hyde LAB POCT ORDERABLES - DEVICE Final Result Performing Organization Address [facility] de Phone Number YARI Lanza[place]) 1 [facility] [place] [address] * eGFR (05/09/2024 7:33 AM ORIENTAL MEDICINE PRACTITIONER) eGFR >90 >=60 mL/min/1. 73 m2 Comment: [...] last reviewed 2021. Blood 05/09/2024 7:33 AM ORIENTAL MEDICINE PRACTITIONER 05/09/2024 7:54 AM ORIENTAL MEDICINE PRACTITIONER Josefina Barnett MD LAB BLOOD ORDERABLES Dasha nolberto Result Y[facility]I [facility]A ([place]) 1 [facility] Department [place] [address] * Differential, auto (05/09/2024 7:33 AM ORIENTAL MEDICINE PRACTITIONER) Neutrophil abs 3.4 1.5 - 6.5 K/cumm Imm gran abs 0.0 0.0 - 0.1 K/cumm [facility] ([place]) Lymphocyte abs 2.3 0.8 - 3.3 K/cumm [...] revised on 2017. Blood 05/09/2024 7:33 AM ORIENTAL MEDICINE PRACTITIONER 05/09/2024 7:54 AM ORIENTAL MEDICINE PRACTITIONER Josefina Barnett MD LAB BLOOD ORDERABLES Dasha l Result Performing Organization Address City/[facility] Co de Phone Number [facility] ([place]) 1 [facility] Department [place] [address] * CBC with auto differential (05/09/2024 7:33 AM ORIENTAL MEDICINE PRACTITIONER) WBC 6.3 3.8 - 9.9 K/cumm Hgb [...] [facility] ([place]) Blood 05/09/2024 7:33 AM ORIENTAL MEDICINE PRACTITIONER 05/09/2024 7:54 AM ORIENTAL MEDICINE PRACTITIONER Josefina Barnett MD LAB BLOOD ORDERABLES Dasha l Result Performing Organization Address City/[facility]/ZIP Co de Phone Number [facility] ([place]) 1 [facility] Department [place] [address] * (ABNORMAL) Comprehensive metabolic panel (05/09/2024 7:33 AM ORIENTAL MEDICINE PRACTITIONER) Sodium 136 135 - 145 mmol/L Potassium, [...] [facility] ([place]) Blood 05/09/2024 7:33 AM ORIENTAL MEDICINE PRACTITIONER 05/09/2024 7:54 AM ORIENTAL MEDICINE PRACTITIONER Josefina Barnett MD LAB BLOOD ORDERABLES Dasha l Result YARI CHAPA ([place]) 1 [facility] [place] [address] * (ABNORMAL) POCT glucose (05/09/2024 2:52 AM ORIENTAL MEDICINE PRACTITIONER) Glucose, POC 246(H) 70 - 199 mg/dL Blood 05/09/2024 2:52 AM ORIENTAL MEDICINE PRACTITIONER 05/09/2024 2:52 AM ORIENTAL MEDICINE PRACTITIONER us Amor Hyde DO LAB POCT ORDERABLES - DEVICE Final Result Y[facility]I [facility]APA ([place]) 1 [facility] [place] [address] * POCT glucose (05/08/2024 8:47 PM ORIENTAL MEDICINE PRACTITIONER) Glucose, POC 180 70 - 199 mg/dL Blood 05/08/2024 8:47 PM ORIENTAL MEDICINE PRACTITIONER 05/08/2024 8:47 PM ORIENTAL MEDICINE PRACTITIONER us Amor Hyde DO LAB POCT ORDERABLES - DEVICE Final Result Y[facility]I CHAPA ([place]) 1 [facility] [place] [address] * POCT glucose (05/08/2024 4:59 PM ORIENTAL MEDICINE PRACTITIONER) Glucose, POC 159 70 - 199 mg/dL Blood 05/08/2024 4:59 PM ORIENTAL MEDICINE PRACTITIONER 05/08/2024 4:59 PM ORIENTAL MEDICINE PRACTITIONER Amor Hyde DO LAB POCT ORDERABLES - DEVICE Final Result YARI CHAPA ([place]) 1 [facility] [place] [address] * POCT glucose (05/08/2024 12:03 PM ORIENTAL MEDICINE PRACTITIONER) Pathologist [facility] Glucose, POC 185 70 - 199 mg/dL Blood 05/08/2024 12:0 3 PM ORIENTAL MEDICINE PRACTITIONER 05/08/2024 12:03 PM ORIENTAL MEDICINE PRACTITIONER Amor Romeo Mary Ellen DO LAB POCT ORDERABLES - DEVICE Final Result Performing Organization Address City/[facility]/ZIP Co de Phone Number YARI CHAPA ([place]) 1 [facility] [place] [address] * D-dimer, quantitative (05/08/2024 9:25 AM ORIENTAL MEDICINE PRACTITIONER) [facility] D-Dimer <215 <=499 ng/mL FEU [facility]I [facility]A ([place]) Comment: Interpretive data FDA approved the D-dimer, [...] revised on 2019. Blood 05/08/2024 9:25 AM ORIENTAL MEDICINE PRACTITIONER 05/08/2024 9:29 AM ORIENTAL MEDICINE PRACTITIONER Amor Romeo Mary Ellen DO LAB BLOOD ORDERABLES F inal Result YARI CHAPA ([place]) 1 [facility] [place] [address] * (ABNORMAL) Influenza A/B, RSV, and COVID-19 PCR Nasopharyngeal (05/08/2024 8:53 AM ORIENTAL MEDICINE PRACTITIONER) [facility] COVID-19 RNA Positive(A) Negative Influenza A RNA Negative Negative [facility] ([place]) Influenza B RNA Negative Negative [facility] ([place]) RSV RNA Negative Negative [facility] ([place]) Comment: Interpretive data: Testing performed by [facility]. This test is performed using the I-Works Xpert Xpress CoV-2/Flu/RSV plus assay. This is a multiplex, real- time reverse transcriptase PCR assay intended for the qualitative detection of nucleic acid from SARS-CoV-2, influenza A, influenza B, and respiratory syncytial virus. This assay has been cleared by the [place] Food and Drug administration. The performance characteristics have been verified by the [facility]. Results must be considered in the clinical context, and a negative result does not rule out infection. Interpretive Data last revised 2023 Nasopharyngeal 05/08/2024 8: 53 AM ORIENTAL MEDICINE PRACTITIONER 05/08/2024 8:58 AM ORIENTAL MEDICINE PRACTITIONER Narrative [facility] ([place]) - 05/08/2024 9:37 AM ORIENTAL MEDICINE PRACTITIONER Is the Patient experiencing symptoms consistent with COVID?->Yes [facility] DO LAB MICROBIOLOGY - GEN ERAL ORDERABLES Final Result Performing Organization Address [facility]/ZIP Co de Phone Number [facility] ([place]) 1 [facility] Department [place] [employer] [address] * POCT glucose (05/08/2024 8:08 AM ORIENTAL MEDICINE PRACTITIONER) Pathologist [facility] Glucose, POC 176 70 - 199 mg/dL Blood 05/08/2024 8:08 AM ORIENTAL MEDICINE PRACTITIONER 05/08/2024 8:08 AM ORIENTAL MEDICINE PRACTITIONER [facility] DO LAB POCT ORDERABLES - DEVICE Final Result Performing Organization Address [facility]/ZIP Co de Phone Number [facility] ([place]) 1 [place] [address] * Troponin T high-sensitivity 6-hour (05/08/2024 8:03 AM ORIENTAL MEDICINE PRACTITIONER) Pathologist [facility] Trop T hs <6 <=14 ng/L Comment: Interpretive Data For further hscTnT resources including the diagnostic algorithm and an aid in interpretation, copy and paste this link: https://nrl.Yorder.org/show/hsTrop Current Interpretive Data last revised 2020. Trop T hs delta -1 ng/L [facility] ([place]) Trop T hs interp Insignificant [facility] ([place]) Blood 05/08/2024 8:03 AM ORIENTAL MEDICINE PRACTITIONER 05/08/2024 9:02 AM ORIENTAL MEDICINE PRACTITIONER Josefina Barnett MD LAB BLOOD ORDERABLES Dasha l Result Performing Organization Address [facility] Co de Phone Number [facility] ([place]) 1 [facility] [place] [address] * Troponin T high-sensitivity 4-hour (05/08/2024 5:45 AM ORIENTAL MEDICINE PRACTITIONER) Trop T hs <6 <=14 ng/L Comment: Interpretive Data For further hscTnT resources including the diagnostic algorithm and an aid in interpretation, copy and paste this link: https://nrl.Yorder.org/show/hsTrop Current Interpretive Data last revised 2020. Trop T hs delta -1 ng/L [facility] ([place]) Trop T hs interp Insignificant [facility] ([place]) Blood 05/08/2024 5:45 AM ORIENTAL MEDICINE PRACTITIONER 05/08/2024 5:46 AM ORIENTAL MEDICINE PRACTITIONER Josefina Barnett MD LAB BLOOD ORDERABLES Dasha l Result Performing Organization Address [facility] Co de Phone Number [facility] ([place]) 1 [facility] [place] [address] * Troponin T high-sensitivity 2-hour (05/08/2024 3:34 AM ORIENTAL MEDICINE PRACTITIONER) Trop T hs <6 <=14 ng/L Comment: Interpretive Data For further hscTnT resources including the diagnostic algorithm and an aid in interpretation, copy and paste this link: https://nrl.testCareerminds Group.org/show/hsTrop Current Interpretive Data last revised 2020. Trop T hs delta -1 ng/L [facility] ([place]) Trop T hs interp Insignificant [facility] ([place]) Blood 05/08/2024 3:34 AM ORIENTAL MEDICINE PRACTITIONER 05/08/2024 3:38 AM ORIENTAL MEDICINE PRACTITIONER Josefina Barnett MD LAB BLOOD ORDERABLES Dasha l Result Performing Organization Address City/[facility]/ZIP Co de Phone Number YARI CHAPA ([place]) [address] [place] [address] of [place] [address] * Troponin T high-sensitivity series (baseline, 2hr, 4hr, 6hr) (05/08/2024 1:28 AM ORIENTAL MEDICINE PRACTITIONER) Trop T hs 7 <=14 ng/L Comment: Interpretive Data For further hscTnT resources including the diagnostic algorithm and an aid in interpretation, copy and paste this link: https://nrl.testcatalog.org/show/hsTrop Current Interpretive Data last revised 2020. Blood 05/08/2024 1:28 AM ORIENTAL MEDICINE PRACTITIONER 05/08/2024 1:32 AM ORIENTAL MEDICINE PRACTITIONER Josefina Barnett MD LAB BLOOD ORDERABLES Dasha l Result Performing Organization Address [facility] Co de Phone Number YARI CHAPA ([place]) [address] [place] [address] of [place] [address] * eGFR (05/08/2024 1:28 AM ORIENTAL MEDICINE PRACTITIONER) eGFR >90 >=60 mL/min/1. 73 m2 Comment: [...] last reviewed 2021. Blood 05/08/2024 1:28 AM ORIENTAL MEDICINE PRACTITIONER 05/08/2024 1:32 AM ORIENTAL MEDICINE PRACTITIONER us Josefina Barnett MD LAB BLOOD ORDERABLES Dasha l Result [facility] ([place]) 1 [facility] Department [place] [address] * Differential, auto (05/08/2024 1:28 AM ORIENTAL MEDICINE PRACTITIONER) Neutrophil abs 4.6 1.5 - 6.5 K/cumm Imm gran abs 0.0 0.0 - 0.1 K/cumm [facility] ([place]) Lymphocyte abs 3.0 0.8 - 3.3 K/cumm [facility] ([place]) Monocyte abs 0.5 0.2 - 0.8 K/cumm [facility] ([place]) Eosinophil abs 0.2 0.0 - 0.5 K/cumm [facility] ([place]) Basophil abs 0.0 0.0 - 0.1 K/cumm [facility] ([place]) Neutrophil pct 55.5 % [facility] ([place]) Comment: Interpretive [...] Lymphocyte pct 35.5 % [facility] ([place]) Comment: Interpretive [...] revised on 2017. Basophil pct 0.4 % [facility] ([place]) Comment: Interpretive Data Percent cell count reference ranges are not reported, since discordance with absolute values may lead to misinterpretation of CBC data. Current Interpretive Data was last revised on 2017. Blood 05/08/2024 1:28 AM ORIENTAL MEDICINE PRACTITIONER 05/08/2024 1:32 AM ORIENTAL MEDICINE PRACTITIONER Josefina Barnett MD LAB BLOOD ORDERABLES Dasha l Result [facility]I EDUARD ([place]) 1 [facility] Department [place] [address] * Pro B-type natriuretic peptide (05/08/2024 1:28 AM ORIENTAL MEDICINE PRACTITIONER) NT-proBNP <36 <=300 pg/mL Comment: Interpretive Comments: [...] as advanced age. - References: 1. Magdy SALEH et.al. Eur Heart J. 2006:27:330-337. 2. Nikolas ALEJANDRE, Nolan SMITH. J. AM Lele Cardiol: Cardiovasc Imag. 2009;2: 216- 225. Interpretive Data Last Revised Date: 2017. Blood 05/08/2024 1:28 AM ORIENTAL MEDICINE PRACTITIONER 05/08/2024 2:12 AM ORIENTAL MEDICINE PRACTITIONER Josefina Barnett MD LAB BLOOD ORDERABLES Dasha arvizu Result [facility] ([place]) 1 [facility] Department [place] [address] * CBC with auto differential (05/08/2024 1:28 AM ORIENTAL MEDICINE PRACTITIONER) WBC 8.3 3.8 - 9.9 K/cumm Hgb [...] blood specimen / Unknown 05/08/2024 1:28 AM ORIENTAL MEDICINE PRACTITIONER 05/08/2024 1:32 AM ORIENTAL MEDICINE PRACTITIONER us Josefina Barnett MD LAB BLOOD ORDERABLES Dasha l Result [facility] ([place]) 1 [facility] Department [place] [address] * (ABNORMAL) Comprehensive metabolic panel (05/08/2024 1:28 AM ORIENTAL MEDICINE PRACTITIONER) Sodium 135 135 - 145 mmol/L Potassium, [...] Hemolyzed S pecimen Blood 05/08/2024 1:28 AM ORIENTAL MEDICINE PRACTITIONER 05/08/2024 1:32 AM ORIENTAL MEDICINE PRACTITIONER Josefina Barnett MD LAB BLOOD ORDERABLES Dasha l Result [facility] ([place]) 1 [facility] Department [place] [address] * XR Chest PA Lateral 2 Views (05/08/2024 1:04 AM ORIENTAL MEDICINE PRACTITIONER) Anatomical Region Laterality Modality Body, Chest N/A Computed Radiogr aphy 05/08/2024 1:05 AM ORIENTAL MEDICINE PRACTITIONER Narrative 05/08/2024 1:06 AM ORIENTAL MEDICINE PRACTITIONER EXAM DESCRIPTION: XR CHEST PA LATERAL 2 [...] by Payal Fuentes M.D. SN: Report ID: [id number] Reading Location: [id number] Procedure Note Payal Fuentes MD - 05/08/2024 [...] by Payal Fuentes M.D. SN: Report ID: [id number] Reading Location: [place] [address] [place] Josefina Barnett MD IMG XR PROCEDURES Final R esult * ECG 12 lead (05/08/2024 12:53 AM ORIENTAL MEDICINE PRACTITIONER) 05/08/2024 12:5 3 AM ORIENTAL MEDICINE PRACTITIONER Narrative [facility] - 05/08/2024 11:54 AM ORIENTAL MEDICINE PRACTITIONER Vent Rate: 91 bpm RR Interval: 655 msec KS Interval: 152 msec QRS Duration: 106 msec QT Interval: 373 msec QTC Interval: 422 msec P-R-T Steele: 7 - -52 - 11 degrees IMPRESSION: [...] Barnett MD ECG ORDERABLES Final Res ult [facility] * (ABNORMAL) POCT hemoglobin A1c (03/01/2024 1:08 PM ORIENTAL MEDICINE PRACTITIONER) Hemoglobin A1C, POC 8.3 4.0 - 5.6 % Capillary blood 03/01/2024 1 :08 PM ORIENTAL MEDICINE PRACTITIONER us Jose Yu MD POINT OF CARE [...] revised on 2017. Triglycerides 63 <=149 mg/dL [facility] ([place]) Comment: Interpretive Data [...] revised on 2017. HDL 54 >=40 mg/dL Y[facility]I Simpson ([place]) Comment: Interpretive Data Ages < or [...] Fin al Result YARI CHAPA ([place]) 1 [facility] Department [place] [address] * Hepatitis panel, acute Blood (07/01/2023 11:14 AM ORIENTAL MEDICINE PRACTITIONER) Hep A IgM Nonreactive Nonreactive [facility] ([place]) Comment: Interpretive Data: If Hep A IgM Ab is reported as Equivocal, a new sample should be drawn in two weeks for testing. Current interpretive data was last revised on 19. Testing performed by: [address] [address] Hep B core IgM Nonreactive Nonreactive C ERNER EDUARD ([place]) Comment: Interpretive Data If HepB Core IgM Ab is reported as Equivocal, a new sample should be drawn in two weeks for testing. Current interpretive data was last revised on 19. Testing performed by: [address] [address] Hep C Ab Nonreactive Nonreactive YARI CHAPA [...] last revised on 2019. Testing performed by: [address] [address] HepBsAg Nonreactive Nonreactive [facility]I [facility] ([place]) Comment:Testing performed by : [address] [address] Blood 07/01/2023 11:1 4 AM ORIENTAL MEDICINE PRACTITIONER 07/01/2023 2:17 PM ORIENTAL MEDICINE PRACTITIONER us Jose Yu MD LAB MICROBIOLOGY - GENERAL ORDER ANNIE Final Result [facility]I [facility]A ([place]) 1 [facility] Department [place] [address] * Albumin Creatinine Ratio, Urine (06/30/2023 12:00 AM ORIENTAL MEDICINE PRACTITIONER) Albumin Ur <12.0 mg/L Y[facility]I [facility] Comment: Interpretive Data No reference range established. Current interpretive data was last revised 2018. Creatinine Ur 274.1 mg/dL YARI Comment: Interpretive Data No reference range established. Current interpretive data was last revised 2018. Albumin Creatinine Ratio, Ur <4 1 - 29 mg/g YARI Urine 06/30/2023 06/30/2023 8:1 3 PM ORIENTAL MEDICINE PRACTITIONER us Jose Yu MD LAB URINE ORDERABLES Final Resul t [place] [address] Department [place] [address] * COLONOSCOPY (02/26/2023 12:07 PM CDT) Anatomical Region Laterality Modality Other Narrative Procedure Note Cinthia Zafar MD - 02/26/2023 12:07 PM CDT [facility] Patient Name: Jacinta Sam Procedure Date: 02/26/2023 12:07 PM Date of : 1965 Admit Type: Outpatient Age: 58 Gender: Female Attending MD: Cinthia Zafar M.D. Room: [facility] ENDOSCOPY ROOM 1 Note Status: Finalized Patient [...] under direct vision. The Pediatric Colonoscope [id number] was introducedthrough the anus and advanced to [...] 12:07 PM Procedure Code(s): --- Professional --- 21929, Colonoscopy, flexible; with biopsy, single or multiple Diagnosis Code(s): --- Professional --- Z86.010, Personal history of colonic polyps K64.8, Other hemorrhoids D12.4, Benign neoplasm of descending colon CPT copyright 2020 [employer]. All rights reserved. The codes documented in this report are preliminary and upon operations support manager reviewmay be revised to meet current compliance requirements. Recognized by the [employer] for promoting quality in endoscopy Cinthia Zafar MD ENDOSCOPY PROCEDURES Final Result from Last 3 Months or Most Recently Relevant to Health Maintenance Additional Health Concerns Infection Onset Date Last Indicated COVID: Recovered Comment:Added based on recent COVID infection. 05/20/2024 025 Insurance * Guarantor: Jacinta Sam Account Type Relation to Patient Date of Phone Billing Address Personal/Family Self 1965 [address] [place] [address] [facility] [employer]PA [employer] [facility] [place] Advance Directives For more information, please contact: [phone] * Full Code (Latest Code Status on [...] Relationship Healthcare Agent Relationshi p Communication Simi Cunningham Health Care Agent Care Teams Skein Inspector Relationship Specialty Start Date End Date Jose Yu MD PCP - General Family Medicine 03/13/22 08/19/24 Claudia Parisi, PERSONNEL CLERKS SUPERVISOR [address] [place] [address] [place] [address] Obstetrics and Gynecology 06/13/22
--- OUTSIDE RECORDS SUMMARY | 2024-07-26 19:33 | XMS_ITS | Data Portability ---
Author Organization [facility] Address [address] [place] [address] Care Team Providers Care Satellite Technician Name Role Phone DONNA, ALLA Primary Care Provider [phone] Assessment Encounter Date Assessment Date Assessment LastModified by Organization Details LastModified Time 08/10/2020 08/10/2020 Ms. Sam is a 55 y/o female presenting in office today to establish care. Patient with c/o generalized pain, fatigue x 2 months. Not available 08/10/2020 18:18:46 09/11/2020 09/11/2020 Ms. Sam presented via telephone communication for f/u appointment. Patient reports improvement in mood. Not available 09/11/2020 17:52:36 05/01/2021 05/01/2021 Ms. Sam presented in office today with c/o intermittent episodes of blood in urine. Patient also c/o right ear pain and small tender nodule on right lower lateral back. Not available 05/06/2021 22:43:31 05/22/2021 05/22/2021 Ms. Sam presented in office today for f/u appointment. Patient states she is still having right ear pain. Patient also requesting dermatology referral for mole on right lower back. Not available 05/24/2021 19:51:32 Plan of Treatment Reminders Order Date Submit Date Provider Last Modified By Organization Details Last Modified Time Details Appointments None recorded. Lab culture, urine 2021 022 [facility], [address] [address], [place], [address], 09:11:56 urinalysi s, complete 2021 022 [facility], [address] [place] [address], [facility], [place], [address], 2 09:11:55 lipid panel, serum 2020 021 [facility], [address] [place] [address], [facility], [place], [address], 14:11:37 CMP, serum or plasma 2020 021 [facility], [address] [place] [address], [facility], [place], [address], 14:11:36 CBC 2020 021 [facility], [address] [place] [address], [facility], [place], [address], 14:11:37 vitamin D, 25-hydrox y, total, serum 2020 021 [facility], [address] [place] [address] 2, [place], [address], 14:11:39 TSH + free T4, serum 2020 021 [facility], [address] [place] [address], [facility], [place], [address], 14:11:35 C reactive protein, QN, serum or plasma 2020 021 [facility], [address] [place] [address], [facility], [place], [address], 14:11:41 ESR (erythroc yte sedimenta tion rate), blood 2020 021 [facility], [address] [place] [address], [facility], [place], [address], 14:11:40 MARCIE (antinucl ear antibodie s) screen, serum 2020 021 [facility], [address] [facility], [place], [address], 14:11:39 HbA1c (hemoglob in A1c), blood 2020 [facility], [address], [address], [place], [address], 14:11:38 Referral dermatolo gist referral 2021 [email or web address] Not available 13:45:38 otolaryng ologist referral 2021 [facility] Wooten DO, [address] [facility], Medical Office [facility] [address], [address], [place], [address], 12:56:19 Procedures None recorded. Surgeries None recorded. Imaging MAMMO, screening , bilateral 2020 [facility]) Registration/ Lab, [address] [place], [address], 18:08:33 Medication Orders amoxicill in 875 mg-potass ium clavulana te 125 mg tablet 2021 [facility] Not available 14:26:08 ofloxacin 0.3 % ear drops 2021 [email or web address] Not available 14:09:10 albuterol sulfate HFA 90 mcg/actua tion aerosol inhaler 2021 QUE Not available 15:50:06 Advair Diskus 250 mcg-50 mcg/dose powder for inhalatio n 2020 [email or web address] Not available 15:20:17 escitalop kaden 5 mg tablet 2020 [email or web address] Not available 01/04/202 2 15:19:50 Patient TargetsNo targets recorded. Patient Instructions Encounter Date Encounter Id Patient Instructions Last Modified By Organization Details Last Modified Time 08/10/2020 [id number] A healthy heart: care instructions [email or web address] Not available 08/10/2020 18:10:01 - limit/avoid consumption of processed foods. choose a diet rich in fruits, and vegetables, low fat, low carbs. - Eat less salt (sodium) - Excercise for at least 30 minutes a day on most days of the week - Limit the amount of caffeine and alcohol you drink - work on obtaining and maintaining a healthy weight Not available 08/10/2020 18:15:55 -Always present to ER or Urgent Care with any progression of/alarming symptoms, significant changes in symptoms or any concerning or urgent matters Not available 08/10/2020 12:05:34 09/11/2020 [id number] This visit was completed via telephone due to the restrictions of the COVID 19 pandemic. All issues were discussed and addressed but no physical exam was performed. If at any time during this visit it was deemed necessary for the patient to be evaluated in office, then he/she would be directed to come in for an office visit. The patient gave verbal consent to this visit. 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 Otalgia of right ear Referring Physician: Alla Thompson [facility] Medicine, Encounter Date: 05/22/2021 [facility] Specialist Referral for M elanocytic nevus of skin Referring Physician: Alla Thompson [facility] Medicine, Encounter Date: 05/22/2021 Results Created Date Observation Date Name Description Value Unit Range Abnormal Flag Note LastModifiedBy Organization Detail LastModifiedTime 08/11/19 21 08/11/2020 TSH + free T4, serum TSH 1.890 uIU/m L 0.450- 4.500 Not Available [facility] ([facility]) [address] [place], [address], 08/11/2020 14:11:35 08/11/1908/11/2020 TSH + free T4, serum T4,free(dire ct) 1.09 NG/dL 0.82-1 .77 Not Available [facility] ([facility]) [address] [place], [address], 08/11/2020 14:11:35 08/11/19 21 08/11/2020 CMP, serum or plasm a glucose 100 mg/dL 65-99 above high normal Not Available [facility] ([facility]) [address] [place], [address], 08/11/2020 14:11:36 08/11/1908/11/2020 CMP, serum or plasm a BUN 11 mg/dL 6-24 Not Available [facility] ([facility]) [address] [place], [address], 08/11/2020 14:11:36 08/11/1908/11/2020 CMP, serum or plasm a creatinine 0.90 mg/dL 0.57-1 .00 Not Available [facility] ([facility]) [address] [place], [address], 08/11/2020 14:11:36 08/11/1908/11/2020 CMP, serum or plasm a eGFR if nonafricn AM 73 mL/mi n/1.7 3 >59 Not Available [facility] ([facility]) [address] [place], [address], 08/11/2020 14:11:36 08/11/19 08/11/2020 CMP, serum or plasm a eGFR if africn AM 84 mL/mi n/1.7 3 >59 Not Available [facility] ([facility]) [address] [place], [address], 08/11/2020 14:11:36 08/11/19 21 08/11/2020 CMP, serum or plasm a BUN/creatini ne ratio 12 9-23 Not Available [facility] ([facility]) [address] [facility], [place], [address], 08/11/2020 14:11:36 08/11/1908/11/2020 CMP, serum or plasm a sodium 139 mmol/ L 134-14 4 Not Available [facility] ([facility]) [address] [facility], [place], [address], 08/11/2020 14:11:36 08/11/1908/11/2020 CMP, serum or plasm a potassium 4.9 mmol/ L 3.5-5. 2 Speci men recei tiffany hemol yzed. Value may be incre ased by hemol ysis. Clini norah corre latio n indic ated. Not Available [facility] ([facility]) [address] [facility], [place], [address], 08/11/2020 14:11:36 08/11/1908/11/2020 CMP, serum or plasm a chloride 100 mmol/ L 96-106 Not Available [facility] ([facility]) [address] [place], [address], 08/11/2020 14:11:36 08/11/1908/11/2020 CMP, serum or plasm a carbon dioxide, total 21 mmol/ L 20-29 Not Available [facility] ([facility]) [address] [place], [address], 08/11/2020 14:11:36 08/11/1908/11/2020 CMP, serum or plasm a calcium 9.5 mg/dL 8.7-10 .2 Not Available [facility] ([facility]) [address] [facility] [place], [address], 08/11/2020 14:11:36 08/11/19 21 08/11/2020 CMP, serum or plasm a protein, total 7.4 g/dL 6.0-8. 5 Not Available [facility] ([facility]) [address] [facility] [place], [address], 08/11/2020 14:11:36 08/11/1908/11/2020 CMP, serum or plasm a albumin 4.4 g/dL 3.8-4. 9 Not Available [facility] ([facility]) [address] [facility] [place], [address], 08/11/2020 14:11:36 08/11/1908/11/2020 CMP, serum or plasm a globulin, total 3.0 g/dL 1.5-4. 5 Not Available [facility] ([facility]) [address] [facility] [place], [address], 08/11/2020 14:11:36 08/11/1908/11/2020 CMP, serum or plasm a A/G ratio 1.5 1.2-2. 2 Not Available [facility] ([facility]) [address] [facility] [place], [address], 08/11/2020 14:11:36 08/11/1908/11/2020 CMP, serum or plasm a bilirubin, total 0.3 mg/dL 0.0-1. 2 Not Available [facility] ([facility]) [address] [facility] [place], [address], 08/11/2020 14:11:36 08/11/19 21 08/11/2020 CMP, serum or plasm a alkaline phosphatase 151 IU/L 39-117 above high normal Not Available [facility] ([facility]) [address] [facility], [place], [address], 08/11/2020 14:11:36 08/11/19 21 08/11/2020 CMP, serum or plasm a AST (SGOT) 23 IU/L 0-40 Not Available [facility] ([facility]) [address] [facility], [place], [address], 08/11/2020 14:11:36 08/11/19 21 08/11/2020 CMP, serum or plasm a ALT (SGPT) 18 IU/L 0-32 Not Available [facility] ([facility]) [address] [facility], [place], [address], 08/11/2020 14:11:36 08/11/19 21 08/11/2020 CBC WBC 6.8 x10e3 /uL 3.4-10 .8 Not Available [facility] ([facility]) [address] [facility], [place], [address], 08/11/2020 14:11:37 08/11/19 21 08/11/2020 CBC RBC 5.12 x10e6 /uL 3.77-5 .28 Not Available [facility] ([facility]) [address] [facility], [place], [address], 08/11/2020 14:11:37 08/11/1908/11/2020 CBC hemoglobin 14.6 g/dL 11.1-1 5.9 Not Available [facility] ([facility]) [address] [place], [address], 08/11/2020 14:11:37 08/11/1908/11/2020 CBC hematocrit 44.2 % 34.0-4 6.6 Not Available [facility] ([facility]) [address] [place], [address], 08/11/2020 14:11:37 08/11/19 21 08/11/2020 CBC MCV 86 fL 79-97 Not Available [facility] ([facility]) [address] [facility], [place], [address], 08/11/2020 14:11:37 08/11/19 21 08/11/2020 CBC MCH 28.5 pg 26.6-3 3.0 Not Available [facility] ([facility]) [address] [facility], [place], [address], 08/11/2020 14:11:37 08/11/19 21 08/11/2020 CBC MCHC 33.0 g/dL 31.5-3 5.7 Not Available [facility] ([facility]) [address] [facility], [place], [address], 08/11/2020 14:11:37 08/11/19 21 08/11/2020 CBC RDW 13.1 % 11.7-1 5.4 Not Available [facility] ([facility]) [address] [facility], [place], [address], 08/11/2020 14:11:37 08/11/19 21 08/11/2020 CBC NRBC PAVING INSPECTOR Not Available [facility] ([facility]) [address] [facility], [place], [address], 08/11/2020 14:11:37 08/11/19 21 08/11/2020 lipid panel , serum cholesterol, total 188 mg/dL 100-19 9 Not Available [facility] ([facility]) [address] [facility], [place], [address], 08/11/2020 14:11:37 08/11/19 21 08/11/2020 lipid panel , serum triglyceride s 124 mg/dL 0-149 Not Available [facility] ([facility]) [address] [place], [address], 08/11/2020 14:11:37 08/11/19 21 08/11/2020 lipid panel , serum HDL cholesterol 62 mg/dL >39 Not Available [facility] ([facility]) [address] [place], [address], 08/11/2020 14:11:37 08/11/19 21 08/11/2020 lipid panel , serum VLDL cholesterol norah 22 mg/dL 5-40 Not Available [facility] ([facility]) [address] [place], [address], 08/11/2020 14:11:37 08/11/19 21 08/11/2020 lipid panel , serum LDL chol calc ([facility]) 104 mg/dL 0-99 above high normal Not Available [facility] ([facility]) [address] [place], [address], 08/11/2020 14:11:37 08/11/19 21 08/11/2020 lipid panel , serum comment: PAVING INSPECTOR Not Available [facility] ([facility]) [address] [facility], [place], [address], 08/11/2020 14:11:37 08/11/1908/11/2020 HbA1c (hemo globi n A1c), blood hemoglobin A1C 6.5 % 4.8-5. 6 above high normal Predi abete s: 5.7 - 6.4 Diabe praveen: >6.4 Glyce rakan contr ol for adult s with diabe praveen: <7.0 Not Available [facility] ([facility]) [address] [place], [address], 08/11/2020 14:11:38 08/11/1908/11/2020 vitam in D, 25-hy droxy , total , serum vitamin D, 25-hydroxy 8.9 NG/mL 30.0-1 00.0 below low normal Vitam in D defic iency has been defin ed by the Insti matthew of Medic ine and an Endoc rine Socie ty pract ice guide line as a level of serum 25-OH vitam in D less than 20 ng/mL (1,2) . The Endoc rine Socie ty went on to furth er defin e vitam in D insuf ficie ncy as a level betwe en 21 and 29 ng/mL (2). 1. IOM (Inst itute of Medic ine). 2010. Dieta ry refer ence intak es for calci um and D. Godwin colvin [place]: [facility] . 2. Carlee k [place], Binkl ey [place], Bisch off-F errar i CHOI, et al. Evalu ation , treat ment, and preve ntion of vitam in D defic iency : an Endoc rine Socie ty clini norah pract ice guide line. JCEM. 2010; 96(7) :1911 -30. Not Available [facility] ([facility]) [address] [place], [address], 08/11/2020 14:11:39 08/11/19 21 08/11/2020 MARCIE (anti nucle ar antib odies ) scree n, serum MARCIE direct Negati ve negati ve Not Available [facility] ([facility]) [address] [place], [address], 08/11/2020 14:11:39 08/11/19 21 08/11/2020 ESR (eryt hrocy te sedim entat ion rate) , blood sedimentatio n rate-westerg raciel 24 mm/HR 0-40 Not Available [facility] ([facility]) [address] [place], [address], 08/11/2020 14:11:40 08/11/19 21 08/11/2020 C react robbie prote in, QN, serum or plasm a C-reactive protein, quant 2 mg/L 0-10 Not Available [facility] ([facility]) [address] [place], [address], 08/11/2020 14:11:41 08/31/19 21 08/31/2020 HbA1c (hemo globi n A1c), blood hemoglobin A1C 6.4 % 4.8-5. 6 above high normal Predi abete s: 5.7 - 6.4 Diabe praveen: >6.4 Glyce rakan contr ol for adult s with diabe parveen: <7.0 Not Available [facility] ([facility]) [address] [place], [address], 08/31/2020 05:09:04 05/01/19 22 05/04/2021 URINA LYSIS , COMPL ETE specific gravity 1.009 1.005- 1.030 Not Available [facility] ([facility]) [address] [facility] [place], [address], 05/04/2021 09:11:55 05/01/19 22 05/04/2021 URINA LYSIS , COMPL ETE pH 6.5 5.0-7. 5 Not Available [facility] ([facility]) [address] [place], [address], 05/04/2021 09:11:55 05/01/19 22 05/04/2021 URINA LYSIS , COMPL ETE urine-color Yellow yellow Not Available [facility] ([facility]) [address] [place], [address], 05/04/2021 09:11:55 05/01/19 22 05/04/2021 URINA LYSIS , COMPL ETE appearance Clear clear Not Available [facility] ([facility]) [address] [place], [address], 05/04/2021 09:11:55 05/01/19 22 05/04/2021 URINA LYSIS , COMPL ETE WBC esterase Negati ve negati ve Not Available [facility] ([facility]) [address] [place], [address], 05/04/2021 09:11:55 05/01/19 22 05/04/2021 URINA LYSIS , COMPL ETE protein Negati ve negati ve/tra ce Not Available [facility] ([facility]) [address] [place], [address], 05/04/2021 09:11:55 05/01/19 22 05/04/2021 URINA LYSIS , COMPL ETE glucose Negati ve negati ve Not Available [facility] ([facility]) [address] [place], [address], 05/04/2021 09:11:55 05/01/19 22 05/04/2021 URINA LYSIS , COMPL ETE ketones Negati ve negati ve Not Available [facility] ([facility]) [address] [place], [address], 05/04/2021 09:11:55 05/01/19 22 05/04/2021 URINA LYSIS , COMPL ETE occult blood Negati ve negati ve Not Available [facility] ([facility]) [address] [place], [address], 05/04/2021 09:11:55 05/01/19 22 05/04/2021 URINA LYSIS , COMPL ETE bilirubin Negati ve negati ve Not Available [facility] ([facility]) [address] [place], [address], 05/04/2021 09:11:55 05/01/19 22 05/04/2021 URINA LYSIS , COMPL ETE urobilinogen ,semi-qn 0.2 mg/dL 0.2-1. 0 Not Available [facility] ([facility]) [address] [place], [address], 05/04/2021 09:11:55 05/01/19 22 05/04/2021 URINA LYSIS , COMPL ETE nitrite, urine Negati ve negati ve Not Available [facility] ([facility]) [address] [place], [address], 05/04/2021 09:11:55 05/01/19 22 05/04/2021 URINA LYSIS , COMPL ETE microscopic examination Commen t Micro scopi c follo ws if indic ated. Not Available [facility] ([facility]) [address] [facility], [place], [address], 05/04/2021 09:11:55 05/01/19 22 05/04/2021 URINA LYSIS , COMPL ETE microscopic examination See below: Micro scopi c was indic ated and was perfo rmed. Not Available [facility] ([facility]) [address] [facility], [place], [address], 05/04/2021 09:11:55 05/01/19 22 05/04/2021 URINA LYSIS , COMPL ETE WBC None seen /hpf 0 - 5 Not Available [facility] ([facility]) [address] [facility], [place], [address], 05/04/2021 09:11:55 05/01/19 22 05/04/2021 URINA LYSIS , COMPL ETE RBC None seen /hpf 0 - 2 Not Available [facility] ([facility]) [address] [facility], [place], [address], 05/04/2021 09:11:55 05/01/19 22 05/04/2021 URINA LYSIS , COMPL ETE epithelial cells (non renal) None seen /hpf 0 - 10 Not Available [facility] ([facility]) [address] [facility], [place], [address], 05/04/2021 09:11:55 05/01/19 22 05/04/2021 URINA LYSIS , COMPL ETE epithelial cells (renal) PAVING INSPECTOR Not Available [facility] ([facility]) [address] [facility], [place], [address], 05/04/2021 09:11:55 05/01/19 22 05/04/2021 URINA LYSIS , COMPL ETE casts None seen /lpf none seen Not Available [facility] ([facility]) [address] [facility], [place], [address], 05/04/2021 09:11:55 05/01/19 22 05/04/2021 URINA LYSIS , COMPL ETE cast type PAVING INSPECTOR Not Available [facility] ([facility]) [address] [facility], [place], [address], 05/04/2021 09:11:55 05/01/19 22 05/04/2021 URINA LYSIS , COMPL ETE crystals PAVING INSPECTOR Not Available [facility] ([facility]) [address] [facility], [place], [address], 05/04/2021 09:11:55 05/01/19 22 05/04/2021 URINA LYSIS , COMPL ETE crystal type PAVING INSPECTOR Not Available [facility] ([facility]) [address] [facility], [place], [address], 05/04/2021 09:11:55 05/01/19 22 05/04/2021 URINA LYSIS , COMPL ETE mucus threads PAVING INSPECTOR Not Available [facility] ([facility]) [address] [facility], [place], [address], 05/04/2021 09:11:55 05/01/1905/04/2021 URINA LYSIS , COMPL ETE bacteria None seen none seen/f ew Not Available [facility] ([facility]) [address] [facility], [place], [address], 05/04/2021 09:11:55 05/01/19 22 05/04/2021 URINA LYSIS , COMPL ETE yeast PAVING INSPECTOR Not Available [facility] ([facility]) [address] [facility], [place], [address], 05/04/2021 09:11:55 05/01/19 22 05/04/2021 URINA LYSIS , COMPL ETE trichomonas PAVING INSPECTOR Not Available [facility] ([facility]) [address] [facility], [place], [address], 05/04/2021 09:11:55 05/01/19 05/04/2021 URINA LYSIS , COMPL ETE comment PAVING INSPECTOR Not Available [facility] ([facility]) [address] [facility], [place], [address], 05/04/2021 09:11:55 05/01/19 22 05/04/2021 URINE CULTU RE, ROUTI NE urine culture, routine Final report Not Available [facility] ([facility]) [address] [facility], [place], [address], 05/04/2021 09:11:56 05/01/19 22 05/04/2021 URINE CULTU RE, ROUTI NE result 1 No growth Not Available [facility] ([facility]) [address] [facility], [place], [address], 05/04/2021 09:11:56 08/24/19 21 08/23/2020 MAMMO , scree maria guadalupe, bilat eral No observ ation record ed. [facility] (Radiology) [address] [place] [address], [address], 09/01/2020 15:20:35 Result Notes None recorded. Problems Name Problem SNOMED Code Status Onset Date Resolution Date Notes Provider Name and Address Organization Details Recorded Time Tobacco user 395959193 Active 2017 ALLA THOMPSON NP Attn: Tuyet moser,[address] [facility], [place], [address], [facility] 1 18:22:28 History of asthma 795523583 Active 2017 ALLA THOMPSON NP Attn: Tuyet g,[address] [facility], [place], [address], [facility] 1 18:22:28 Cardiomyopathy 93101886 Active 2017 ALLA THOMPSON NP Attn: Tuyet g,[address] [facility], [place], [address], [facility] 1 18:22:28 Depressive disorder 73762194 Active 2020 ALLA THOMPSON NP Attn: Tuyet shanti,[address] [facility], [place], [address], [place] [facility] 1 18:22:28 Moderate persistent asthma 783281559 Active 2020 ALLA THOMPSON NP Attn: Raisairasema moser,[address] [facility], [place], [address], [place] [facility] 1 18:22:28 Generalized aches and pains 86727703 Active 2020 ALLA THOMPSON NP Attn: Tuyet shanti,[address] [facility], [place], [address], [place] [facility] 1 18:22:28 Fatigue 39566539 Active 2020 ALLA THOMPSON NP Attn: Tuyet shanti,[address] [facility], [place], [address], [place] [facility] 1 18:22:28 Vitamin D deficiency 84790364 Active 2020 ALLA THOMPSON NP Attn: Tuyet shanti,[address] [facility], [place], [address], [place] [facility] 1 22:42:04 Cyst of skin 355929340 Active 2021 ALLA THOMPSON NP Attn: Tuyet shanti,[address] [facility], [place], [address], [place] [facility] 2 22:46:18 Blood in urine 97061793 Active 2021 ALLA THOMPSON NP Attn: Tuyet g,[address] [facility], [place], [address], [place] [facility] 2 22:46:22 Spasm 37565162 Active ALLA THOMPSON NP Attn: Tuyet g,[address] [facility], [place], [address], [place] [facility] 1 18:22:28 Knee pain Active ALLA DONNA, PAVING INSPECTOR Attn: Accountin g,[address] [facility], [place], [address], [facility] 1 18:22:28 Upper respiratory infection 74652427 Active ALLA LAUER, PAVING INSPECTOR Attn: Accountin g,[address], [place], [address], [place] [facility] 1 18:22:28 Right upper quadrant pain [id number] Active ALLA LAUER, PAVING INSPECTOR Attn: Accountin g,[address] [facility], [place], [address], [place] [facility] 1 18:22:28 Problem Notes None recorded. Procedures Surgical History Date Name Laterality Status Provider Name and Address Organization Details Recorded Time 04/28/19 08 Hysterectomy completed Nicki Jeong [facility] 05/03/2014 15:37:39 04/28/19 05 Hernia Repair completed Nicki Jeong MA [facility] 05/03/2014 15:37:39 04/28/18 88 Caesarean Section completed Nicki Jeong MA [facility] 05/03/2014 15:37:39 04/28/18 87 Caesarean Section completed Nciki Jeong MA [facility] 05/03/2014 15:37:39 Imaging Results Imaging Date Name Status LastModified by Organiz ation Details LastModified Time 08/23/2020 MAMMO, screening, bilateral completed [facility] (Radiology) [address] [place] [address], [id number], 09/01/2020 15:20:35 Procedure Notes None recorded. Medical Equipment None Reported. Allergies Allergen ID Allergen Name Allergen Category Reaction Reaction Severity Criticality Documentation Date Start Date Code Code System Note Provider Name and Address Organization Details Recorded Time 44915 tramadol medicatio n other Not available Not available 05/03/2014 16370 RxNorm swell ing Not Available Not Available Not Available 58674 Benadryl medicatio n other Not available Not available 05/03/2014 73436 7 RxNorm swell ing Not Available Not Available Not Available Medications Name Sig Start Date Stop Date Status Note LastModified by Organization Details LastModified Time cyclobenzap rine 10 mg tablet Take 1 tablet every day by oral route at bedtime. 07/24 completed Not Available Not Available Not Available albuterol sulfate 2.5 mg/3 mL (0.083 %) solution for nebulizatio n INHALE 3 ML 3 TIMES A DAY BY NEBULIZAT ION ROUTE. 05/01 completed Not Available Not Available Not Available azithromyci n 250 mg tablet TAKE 2 TABLETS (500 MG) BY ORAL ROUTE ONCE DAILY FOR 1 DAY THEN 1 TABLET (250 MG) BY ORAL ROUTE ONCE DAILY FOR 4 DAYS 07/24 completed Not Available Not Available Not Available ibuprofen 800 mg tablet 09/25 completed Not Available Not Available Not Available valacyclovi r 1 gram tablet 01/26 completed Not Available Not Available Not Available hydrocodone 5 mg-acetamin ophen 325 mg tablet Take 1 tablet every 6 hours by oral route. 09/25 completed Not Available Not Available Not Available meloxicam 15 mg tablet 04/09 completed Not Available Not Available Not Available prednisone 20 mg tablet Take 1 tablet every day by oral route for 5 days. 07/24 completed Not Available Not Available Not Available naproxen 250 mg tablet 09/25 completed Not Available Not Available Not Available sulfamethox azole 800 mg-trimetho prim 160 mg tablet 07/24 completed Not Available Not Available Not Available doxycycline monohydrate 100 mg tablet TAKE 1 TABLET BY MOUTH TWICE A DAY FOR 10 DAYS active Not Available Not Available No t Available tramadol 50 mg tablet Take 1 tablet every 6 hours by oral route as needed. 07/24 completed Not Available Not Available Not Available amoxicillin 500 mg tablet Take 1 tablet every 12 hours by oral route. 04/09 completed Not Available Not Available Not Available carvedilol 3.125 mg tablet take one tablet by mouth twice daily 08/10 completed Not Available Not Available Not Available ketorolac 10 mg tablet active Not Available Not Available Not Available meloxicam 7.5 mg tablet Take 1 tablet twice a day by oral route. 2015 active Not Available Not Available Not Avai lable oxycodone-a cetaminophe n 5 mg-325 mg tablet 09/25 completed Not Available Not Available Not Available ofloxacin 0.3 % ear drops INSTILL 10 DROPS INTO AFFECTED EAR(S) BY OTIC ROUTE ONCE DAILY FOR 7 DAYS 05/22 completed Not Available Not Available Not Available alprazolam 0.25 mg tablet 09/25 completed Not Available Not Available Not Available famotidine 20 mg tablet TAKE 1 TABLET BY MOUTH EVERY DAY 05/01 completed Not Available Not Available Not Available baclofen 10 mg tablet 09/25 completed Not Available Not Available Not Available ferrous sulfate 325 mg (65 mg iron) tablet take one tablet by mouth once daily 08/10 completed Not Available Not Available Not Available diclofenac potassium 50 mg tablet Take 1 tablet twice a day by oral route. active Not Available Not Available No t Available nitroglycer in 0.4 mg sublingual tablet 05/01 completed Not Available Not Available Not Available omeprazole 20 mg capsule,del ayed release 08/10 completed Not Available Not Available Not Available montelukast 10 mg tablet TAKE 1 TABLET BY MOUTH EVERY DAY 08/10 completed Not Available Not Available Not Available pravastatin 20 mg tablet 09/25 completed Not Available Not Available Not Available furosemide 20 mg tablet 05/01 completed Not Available Not Available Not Available ergocalcife rol (vitamin D2) 1,250 mcg (50,000 unit) capsule Take 1 capsule by oral route. 05/01 completed Not Available Not Available Not Available methylpredn isolone 4 mg tablets in a dose pack Take 1 dose pk every day by oral route. 05/01 completed Not Available Not Available Not Available albuterol sulfate HFA 90 mcg/actuati on aerosol inhaler Inhale 2 puffs every day by inhalatio n route. active Not Available Not Available No t Available morphine 15 mg immediate release tablet 07/24 completed Not Available Not Available Not Available fluticasone propionate 50 mcg/actuati on nasal spray,suspe nsion SPRAY 2 SPRAYS INTO EACH NOSTRIL EVERY DAY active Not Available Not Available No t Available lisinopril 2.5 mg tablet 05/01 completed Not Available Not Available Not Available cholecalcif nick (vitamin D3) 125 mcg (5,000 unit) capsule take one capsule by mouth once daily 08/10 completed Not Available Not Available Not Available amoxicillin 875 mg-potassiu m clavulanate 125 mg tablet TAKE 1 TABLET BY MOUTH EVERY 12 HOURS FOR 7 DAYS active Not Available Not Available No t Available neomycin-po lymyxin-hyd rocort 3.5 mg-10,000 unit/mL-1 % ear drops,susp INSTILL 4 DROPS INTO AFFECTED EAR(S) BY OTIC ROUTE 3 TIMES PER DAY x 7 days 07/24 completed Not Available Not Available Not Available Migraine Relief 250 mg-250 mg-65 mg tablet active Not Available Not Available Not Available escitalopra m 5 mg tablet Take 1 tablet every day by oral route. 05/01 completed Not Available Not Available Not Available topiramate 50 mg tablet 09/25 completed Not Available Not Available Not Available Wixela Inhub 250 mcg-50 mcg/dose powder for inhalation Inhale 1 puff twice a day by inhalatio n route. 05/01 completed Not Available Not Available Not Available Vitals Date Recorded Body height Body mass index (BMI) Body weight Oxygen saturation Oxygen saturation in Arterial blood by Pulse oximetry Heart rate Respiratory rate Body temperature Systolic blood pressure Diastolic blood pressure Provider Name and Address Organization Details Last Updated DateTime 1 157.48 cm 29.2 kg/m2 74894.9 9 g 98 % 98 % 79 /min 16 /min 98.1 [degF] 112 mm[Hg] 68 mm[Hg] Rena Oscar [facility] - [facility] 1 12:01:46 Date Recorded Body height Provider Name an d Address Organization Details Last Updated DateTime 09/11/2020 157.48 cm Rena Oscar [place] [facility] 09/12/19 21 12:54:08 Date Recorded Body height Body temperature Respiratory rate Heart rate Oxygen saturation Oxygen saturation in Arterial blood by Pulse oximetry Body mass index (BMI) Body weight Systolic blood pressure Diastolic blood pressure Provider Name and Address Organization Details Last Updated DateTime 2 157.48 cm 97.1 [degF] 16 /min 70 /min 97 % 97 % 28.8 kg/m2 31190.4 g 106 mm[Hg] 76 mm[Hg] Ashleigh Velasco [place] [facility] 2 15:30:06 Date Recorded Body height Body mass index (BMI) Body weight Body temperature Respiratory rate Heart rate Oxygen saturation Oxygen saturation in Arterial blood by Pulse oximetry Systolic blood pressure Diastolic blood pressure Provider Name and Address Organization Details Last Updated DateTime 2 157.48 cm 28.2 kg/m2 97129.6 2 g 97.1 [degF] 16 /min 88 /min 99 % 99 % 112 mm[Hg] 84 mm[Hg] Ashleigh Velasco [place] [facility] 14:14:05 Social History Question Answer Notes LastModified by Organizat ion Details LastModified Time Tobacco Smoking Status Former Smoker Ashleigh Velasco MA [place], [place] - [facility] 05/01/2021 15:23:36 What Is Your Level Of Alcohol Consumption? Occasional Information not available 10/31/2014 Are You Blind Or Do You Have Difficulty Seeing? Yes Glasses Information not available 08/10/2020 What Is Your Level Of Caffeine Consumption? Occasional Information not available 08/10/2020 In The 14 Days Before Symptom Onset, Have You Had Close Contact With A Laboratory-confir med COVID-19 While That Case Was Ill? No Information not available 05/01/2021 In The 14 Days Before Symptom Onset, Have You Had Close Contact With A Person Who Is Under Investigation For COVID-19 While That Person Was Ill? No Information not available 05/01/2021 Have You Been To An Area Known To Be High Risk For COVID-19? No Information not available 05/01/2021 Are You Currently Employed? Yes Information not available 08/10/2020 Are You Deaf Or Do You Have Serious Difficulty Hearing? Yes SNOQUALMIE Right Ear Information not available 08/10/2020 What Type Of Diet Are You Following? 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 05/22/2021 Information not available 05/22/2021 What Is Your Relationship Status? Single Information not available 08/10/2020 Do You Use Your Seat Belt Or Car Seat Routinely? Yes Information not available 05/01/2021 Do You Have Smoke And Carbon Monoxide Detectors In Your Home? Yes Information not available 08/10/2020 Are You Passively Exposed To Smoke? Yes Information no t available 08/10/2020 How Much Tobacco Do You Smoke? No Information not available 05/01/2021 Do You Feel Stressed (tense, Restless, Nervous, Or Anxious, Or Unable To Sleep At Night)? VS4031-8 Information not available 09/11/2020 Do You Use Any Illicit Or Recreational Drugs? No Denies Information not available 08/10/2020 Has Tobacco Cessation Counseling Been Provided? No Information not available 05/01/2021 On What Date Was Tobacco Cessation Counseling Provided? 05/22/2021 Information not available 05/22/2021 How Many Years Have You Smoked Tobacco? 31 Information not available 05/03/2014 Do You Or Have You Ever Used Any Other Forms Of Tobacco Or Nicotine? No Information not available 08/10/2020 Sex: Male Functional Status Question Answer Note LastModified by Organization D etails LastModified Time Are you able to care for yourself? Yes Information not available 08/10/2020 What is your exercise level? Moderate Information not available 05/01/2021 Mental Status None recorded. Family History Relationship Description Onset Age of this Age Resolved Age Notes LastModified by Organization Details LastModified Time Mother Allergy Not available 06/06/2015 14:19:58 Mother Hypertensive disorder Not available 2015 14:19:58 Mother Arthritis Not availab le 06/06/2015 14:19:58 Father Alcohol abuse Not available 2015 14:19:58 Father Allergy Not available 06/06/2015 14:19:58 Father Hypertensive disorder Not available 2015 14:19:58 Father Asthma Not available 06/06/2015 14:19:58 Father Emphysema Not availab le 06/06/2015 14:19:58 Father Diabetes mellitus dgatesma Not available 2020 11:58:32 Brother Allergy Not availabl e 06/06/2015 14:19:58 Brother Asthma Not available 06/06/2015 14:19:58 Medical History Condition Response Coronary Artery Disease N Other N Atrial Fibrillation N High Blood Pressure N Depression N COPD N Blood Clots N Anxiety Disorder N Muscle, Joint, or Bone Problems N Acid Reflux (GERD) N Cancer N Stroke N High Cholesterol N Liver Disease N Headaches N Kidney or Bladder Problems N Thyroid Problems N GI Problems N Skin Problems N Anemia N Heart Attack (CT) N Diabetes N Seizures/Epilepsy N Asthma N Allergies N Hepatitis N Heart Failure N Osteoporosis N Gynecological HistoryNo gynecological history recorded. Obstetrics History GPAL:G 0 P 0 0 0 0 Immunizations Vaccine Type Date Status Note Provider Nam e and Address Organization Details Recorded Time COVID-19, mRNA, LNP-S, PF, 100 mcg/0.5mL dose or 50 mcg/0.25mL dose 1 completed Ashleigh Velasco [place], [place] [facility] 05/01/2021 15:21:36 COVID-19, mRNA, LNP-S, PF, 100 mcg/0.5mL dose or 50 mcg/0.25mL dose 1 completed Ashleigh Velasco [place], [place] [facility] 05/01/2021 15:22:21 Influenza, split virus, quadrivalent, PF 8 completed Not Available [facility] 05/15/2019 02:46:41 Tdap 5 completed ALLA THOMPSON NP Attn: Accounting[address] [place], [address], [place] [facility] 08/10/2020 18:22:28 COVID-19, mRNA, LNP-S, PF, 100 mcg/0.5mL dose or 50 mcg/0.25mL dose 2 completed Laine Archer [place], [place] [facility] 05/01/2021 17:29:18 Influenza, split virus, quadrivalent, preservative 5 completed Not Available [facility] 05/15/2019 02:49:52 Tdap 5 completed Not Available [facility] 05/15/2019 02:46:38 Past Encounters Encounter ID Performer Location Encounter Start Date Encounter Closed Date Diagnosis/Indication Diagnosis SNOMED-CT Code Diagnosis ICD10 Code Diagnosis Note [id number] Shameka Ortega [place] [id number] [place] [address] 05/03/2014 14:44:52 05/04/2014 08:17:37 Right upper quadrant pain 475245742 [id number] Shameka Ortega [facility] [address] [place] [address] 10/31/2014 08:49:58 10/31/2014 14:03:05 Spasm 30691821 [id number] Emily Ortega [place] [address] [place] [address] 02/06/2015 11:02:57 02/06/2015 14:16:02 Knee pain 15568107 M25.561 Needs infl uenza immunization 907892205 Z28.3 [id number] Melvin Sue [place] [address] [place] [address] 02/20/2015 14:39:27 02/20/2015 15:23:17 Knee pain 16082812 M25.561 Administra tion of diphtheria, pertussis, and tetanus vaccine 837815094 Z23 [id number] Melvin Sue [place] [address] [place] [address] 05/04/2015 14:09:54 05/04/2015 14:58:28 Knee pain 37521356 M25.561 [id number] Melvin Sue [place] [address] [place] [address] 06/06/2015 14:02:26 06/06/2015 14:40:39 Knee pain 99417597 M25.561 Upper resp iratory infection 51583689 J06.9 [id number] Melvin Sue [place] [address] [place] [address] 04/09/2016 08:43:33 04/11/2016 10:26:28 Atypical chest pain 887411045 R07.89 [id number] ASHLI Goode [address] [facility] [place] [address] 09/25/2017 13:59:13 09/25/2017 15:37:44 Tobacco user 777008644 Z72.0 History of asthma 943057 007 Z87.09 Acute exac erbation of asthma 278203390 J45.901 Adult heal th examination 190292494 Z00.00 [id number] Melvin Welch 14 IM [address] [facility] [place] [address] 10/09/2017 13:59:29 10/10/2017 10:05:23 History of asthma 636079369 Z87.09 Tobacco user 923515447 Z 72.0 [id number] Melvin Welch 14 IM [address] [facility] [place] [address] 01/26/2018 10:39:54 01/26/2018 16:47:42 Difficulty swallowing solids 661247228 R13.10 [facility] 31846305 I42.9 Wants to be refered to new cardiologi st Administra tion of influenza vaccine 32241824 Z23 [id number] ANURAG Rahman 14 IM [address] [facility] [place] [address] 02/25/2018 13:46:29 02/25/2018 16:45:58 History of asthma 128837766 Z87.09 Counseled on asthma and will send for nebulizer. Return for use of inhaler more than 3 times a week, cough or wheezing at night. Continue smoking cessation encouraged . Identify and stay away from triggers. f/u with Fanny 2-4 weeks if no improvemen t Otitis externa 5975933 H 60.92 Upper resp iratory infection 00184522 J06.9 [id number] ANURAG Rahman 14 IM [address] [facility] [place] [address] 10/22/2018 15:07:43 10/23/2018 09:06:48 Neck pain 32437448 M54.2 Counseled on neck pain, medication s as directed- C-spine x-ray-cont inue Tylenol at home and will add flexeril as needed-f/u with Dr Swanson when he returns 2-3 weeks if no improvemen t [id number] DIVYA Gutiérrez 14 PEDS [address] [facility] [place] [address] 07/26/2020 08:19:59 07/27/2020 16:02:41 Chest pain 90017244 R07.9 -Advised will place cardiology referral. -Advised patient needs an in office visit for physical and annual exam. She states understand ing and will setup her apt. -ER precaution s discussed Snoring 78531035 R06.83 -Will refer to sleep medicine Pain in right knee 13265 [address] 83325 M25.561 -Will send to ortho per patients request. [id number] ALLA THOMPSON NP [facility] [address] [place] [address] 08/10/2020 11:45:49 08/11/2020 14:03:18 Tobacco user 510980688 Z72.0 - Patient is a current cigarette smoker, states she smokes 1/2pk per day and currently has no desire to quit. - Patient advised in the derogatory effects of smoking - Counseling for smoking cessation completed Adult [facility] examination 085043452 Z00.00 - Discussed with patient findings, diagnoses, and prognosis. - Discussed plan of care including treatment options, risks, and benefits with patients. Patient expressed understand ing. - The following interventi ons were recommende d: heart healthy low-fat, low-sodium diet, ideal body weight, regular exercise, medication s compliance , and medical follow-up as noted. Fatigue 15783722 R53.83 - try to get regular exercise. But don't overdo it. Go back and forth between rest and exercise. - Get plenty of rest. - Eat a healthy diet. Do not skip meals, especially breakfast. - Reduce your use of caffeine, tobacco, and alcohol. Screening mammography 24 526850 Z12.31 - Patient educated on the importance of annual breast cancer screenings with mammograph y. - Mammogram order sent and printed copy provided to pt. Hyperlipid emia screening 884665398 Z13.220 Diabetes m ellitus screening 902787698 Z13.1 Cardiomyopathy 59845884 I42.9 - Dr Lai following and managing care - Patient stated she has with specialist on August 30 Depressive disorder 7955 7922 F32.9 - Discussed symptoms of depression /anxiety as well as the different treatment types. - Encouraged psychother apy in adjunct with medication therapy,. - All questions and concerns were addressed. - Pt to take meds as directed. - Pt is to monitor symptoms and RTC sooner if symptoms are worsening or not improving. Moderate p ersistent asthma 527257074 J45.40 - Instructed patient if albuterol usage increases beyond 2-3 times per week for 2 weeks, it may been a sign of worsening control. - Call office or go to ER for worsening cough, wheeze or work of breathing. - Follow up in office in 2 months - Patient verbalized understand ing. Generalize d aches and pains 64256960 R52 [id number] ALLA THOMPSON NP [facility] [address] [place] [address] 09/11/2020 08:28:56 09/12/2020 15:42:36 Depressive disorder 76578978 F32.9 - Patient reports improvemen t in mood - Continue medication as prescribed - Pt is to monitor symptoms and RTC sooner if symptoms are worsening or not improving. [id number] ALLA THOMPSON NP Kelsey 14 IM [address] [facility] [place] [address] 05/01/2021 14:27:35 05/03/2021 13:50:40 Moderate persistent asthma 672974996 J45.40 - rx refill request- Instructed patient if albuterol usage increases beyond 2-3 times per week for 2 weeks, it may been a sign of worsening control. - Call office or go to ER for worsening cough, wheeze or work of breathing. - Follow up in office in 2 months - Patient verbalized understand ing. Blood in urine 78301241 R31.9 Otitis externa 2591303 H 60.91 - Use antibiotic drops as directed.- Avoid getting water in the ear until the problem clears up.- RTC is you are not getting better after 2 days (48 hours) Cyst of skin 402758855 L 72.9 - small pea sized tender nodule noted right lower lateral back- Apply Moist warm compresses for 30 minutes at least four times per day, this will provide comfort and encourage pointing/d rainage.- Do Not pop, pick, or squeeze- Change towel, wash cloths, and sheets daily.- Do not share personal hygiene items- RTC for new or worsening symptoms [id number] TIMOTHY Mckee 14 IM [address] [facility] [place] [address] 05/01/2021 16:14:32 05/08/2021 00:26:32 Administration of SARS-CoV-2 mRNA vaccine 7328670853 Z23 [id number] DIVYA RUSSELL 14 IM [address] [facility] [place] [address] 05/22/2021 14:00:30 05/24/2021 22:07:36 Otalgia of right ear 8757927974 H92.01 - Take anbx as prescribed - Ibuprofen/ Tylenol for added pain relief Melanocyti c nevus of skin 573080489 D22.9 - right lower back Health Concerns Section Related Observation LastModified by Organization Detai ls LastModified Time None Recorded Concern Status LastModified by Organization Details LastModified Time None Recorded Advance Directives Directive None Recorded Payers Encounter Date Sequence Insurance Name Policy Number Policy Anaya Covered Member ID Anaya Member ID Guarantor Name 08/10/2020 1 [facility] (MEDICAID HMO) [id number] Jacinta Sam [id number] Jacinta Sam 09/11/2020 1 [facility] (MEDICAID HMO) [id number] Jacinta Sam [id number] Jacinta Sam 05/01/2021 2 [place] [employer] Jacinta Sam [id number] Jacinta Sam 05/01/2021 2 [place]: [facility] Jacinta Sam [id number] Jacinta Sam 05/22/2021 2 [place] [employer] Jacinta Sam [id number] Jacinta Sam Notes Date Note Type Note Provider Name and Address Organization Details Recorded Time text/html Anxiety/DepressionReported bypatient.Severity:denies suicidal ideations; able to maintain relationships; does not interfere with activities of daily living Duration:symptoms lasting over 2 weeks Onset/Timing:still present Context:bereavement Associated Symptoms:denies homicidal ideations;depression;griev ing;insomniaAsthma F/UReported bypatient.Severity:able to sleep during episode; does not interfere with daily activities; used nebulizer 7 times for this episode; uses nebulizer/inhaler an average of 3 times/week lately Context:improving Associated Symptoms:no fever; no fatigue; no irritability; no cough; normal appetite; no changes in productivity; no shortness of breathFatigueReported bypatient.Quality:continuo us Severity:moderate Duration:symptoms lasting over 2 weeks Timing:worse Context:symptoms improve on weekends/vacation; no problems/stress at work or home Modifying Factors:no new stressors in life;not taking vitamins Associated Symptoms:no drug/alcohol withdrawal; no depression; no anxiety; periods of not breathing (apnea) have not been observed;snoring;recent change in weight Ms. Sam is a 55 y/o female presenting in office today to establish care. Patient with c/o generalized pain, fatigue x 2 months. ALLA THOMPSON NP Attn: Accounting[address] [place], [address], [facility] 08/10/2020 18:28:12 1 text/html Anxiety/DepressionReported bypatient.Quality:symptoms improved Severity:denies suicidal ideations Modifying Factors:medications as directed Associated Symptoms:denies homicidal ideations Ms. Sam presented via telephone communication for f/u appointment. Patient reports improvement in mood. ALLA THOMPSON NP Attn: Accounting[address] [facility], [place], [address], [facility] 09/11/2020 17:54:41 2 text/html EaracheReported bypatient.Location:right Quality:aching Severity:moderate Duration:frequent Context:no sick contacts;swimming/water in ear Modifying Factors:does not hurt to chew;hurts to lie on, or pull on ear Associated Symptoms:no discharge from the ears; no nose/sinus problems; no popping noise in the ears; no ringing in the ears Ms. Sam presented in office today with c/o intermittent episodes of blood in urine. Patient also c/o right ear pain and small tender nodule on right lower lateral back. ALLA THOMPSON NP Attn: Accounting,[address] [facility], [place], [address], [facility] 05/06/2021 22:48:07 2 text/html EaracheReported bypatient.Context:no sick contacts; no recent swimming/water in ear; no exposure to second hand smoke Modifying Factors:does not hurt to lie on, or pull on ear; does not hurt to chew Associated Symptoms:no discharge from the ears; no nose/sinus problems; no ringing in the ears;popping noise in the ears Ms. Sam presented in office today for f/u appointment. Patient states she is still having right ear pain. Patient also requesting dermatology referral for mole on right lower back. ALLA THOMPSON NP Attn: Accounting,[address] [place], [address], [facility] 05/24/2021 19:55:32 OBGyn Episode No OBEpisode recorded.
--- OUTSIDE RECORDS SUMMARY | 2024-07-26 19:33 | XMS_ITS | Clinical Summary ---
Author Organization [facility] Address [address] [place] [phone] Phone Care Team Providers Care Hand Flatwork Finisher Name Role Phone Jsoe Yu MD Primary Care Provider [phone] Allergies Active Allergy Reactions Criticality Noted Date Comments Diphenhydramine Hives 03/20/2015 Codeine Anaphylaxis 03/20/2015 Difficulty breathing; swelling everwhere Other Rash 02/09/2018 Adhesive from plastic tape, anesthesia time monitor; And red irritated skin Medications naproxen (NAPROSYN) 500 MG Tablet Take 1 Tab by mouth 2 times daily as needed for Pain. 20 Tab 0 6 Active Cholecalciferol (VITAMIN D PO) Take by mouth daily. Active omeprazole (PRILOSEC) 20 MG CAPSULE DELAYED RELEASE Take 1 Cap by mouth every morning (before breakfast). 90 Cap 8 Active albuterol (PROVENTIL, VENTOLIN) (2.5 MG/3ML) 0.083% Nebulizer Soln 2.5 mg by Nebulization route 3 times daily. Active carvedilol (COREG) 3.125 MG Tablet Take 3.125 mg by mouth 2 times daily. Active ALBUTEROL IN take by inhalation as needed. Active montelukast (SINGULAIR) 10 MG Tablet Take 10 mg by mouth daily. Active morphine IMMEDIATE RELEASE (MS IR) 15 MG Tablet Take 1 Tab by mouth every 4 hours as needed for Severe pain. 35 Tab 9 Active traMADol (ULTRAM) 50 MG Tablet Take 1 Tab by mouth every 6 hours as needed for Moderate or more severe pain. 20 Tab 0 Active famotidine (PEPCID) 20 MG Tablet Take 1 Tablet by mouth 2 times daily. 60 Tablet 1 Active nitroGLYCERIN (NITROSTAT) 0.3 MG SL Tablet 1 Tablet by Sublingual route every 5 minutes as needed for Chest pain. 100 Tablet 1 Active naproxen (NAPROSYN) 375 MG Tablet Take 1 Tablet by mouth 2 times daily (with meals). 30 Tablet 2 Active methylPREDNISol one (MEDROL DOSPACK) 4 MG Tablet Therapy Pack See product package insert for dosing schedule 21 Tablet 3 Active Active Problems Problem Noted Date Diagnosed Date Complex tear of medial menis cus of right knee as current injury 07/08/2018 Chest pain 03/20/2015 Pulmonary nodule, right 03/20/2015 Encounters Date Type Department Care Team Description 05/18/2024 Results Follow-Up [facility] [address] [place] [address] Yasmin Fonseca RN 05/16/2024 11:52 AM JEWELRY SALES ASSOCIATE - 05/16/2024 2:18 PM JEWELRY SALES ASSOCIATE Emergency [facility] [address] [place] [address] Shameka Saunders, NICOLLE Urinary tract infection Discharge Disposition: Discharged to home or Selfcare 05/16/2024 Travel from Last 3 Months Family History Medical History Relation Name Comments Chronic Obstructive Pulmonary Disease Father Diabetes Father Hypertension Father Stroke Father Colon Cancer Maternal Grandfather Hypertension Mother Cancer Other 1 breast Cancer Other 2 cousin breast Relation Name Status Comments Father Alive Maternal Grandfather Mother Alive Other 1 Other 2 cousin Social History Tobacco Use Types Packs/Day Years Used Date Smoking Tobacco: Former Cigarettes 0.5 15 Smokeless Tobacco: Never Tobacco Cessation:Counseling Given: Not Answered Alcohol Use Standard Drinks/Week Comments Not Currently 0 (1 standard drink = 0.6 oz pur e alcohol) rarely Comments No Sex and Gender Information Value Date Recorded Sex Assigned at Not on file Legal Sex Female 8:23 AM JEWELRY SALES ASSOCIATE Gender Identity Not on file Sexual Orientation Not on file Last Filed Vital Signs Vital Sign Reading Time Taken Comments Blood Pressure 121/69 05/16/2024 2:00 PM JEWELRY SALES ASSOCIATE Pulse 83 05/16/2024 2:15 PM JEWELRY SALES ASSOCIATE Temperature 36.2 C (97.1 F) 05/16/2024 11:58 AM JEWELRY SALES ASSOCIATE Respiratory Rate 16 05/16/2024 11:58 AM JEWELRY SALES ASSOCIATE Oxygen Saturation 97% 05/16/2024 2:15 PM JEWELRY SALES ASSOCIATE Inhaled Oxygen Concentration - - Weight 75.4 kg (166 lb 3.6 oz) 05/16/2024 11:58 AM JEWELRY SALES ASSOCIATE Height 144.8 cm (4' 9 ) 05/16/2024 11:58 AM JEWELRY SALES ASSOCIATE Body Mass Index 35.97 05/16/2024 11:58 AM JEWELRY SALES ASSOCIATE Plan of Treatment Health Maintenance Due Date Last Done Comments Hepatitis C Virus (HCV) Screening 1965 Hepatitis B Immunization (1 of 3 - 19+ 3-dose series) 1986 Cologuard 2017 Immunochemical Fecal Occult Blood 2017 Pneumococcal Immunization (50+ years) (1 of 1 - PCV) 2017 Zoster Immunization (1 of 2) 2017 Mammogram 08/23/2021 08/23/2020 Influenza Immunization (#1) 2023 09/2 04/2022, 02/14/2022, 01/26/2018, Additional history exists SARS-COV-2 Immunization ( season) 2023 05/01/2021, 08/01/2020, 06/14/2020 Colonoscopy 02/26/2026 02/26/2023, 02/12/2018 Colorectal Cancer Screening 02/26/2026 Respiratory Syncytial Virus (RSV) Immunization (Adult) (1 - 1-dose 75+ series) 2042 02/26/2023, 02/12/2018 DTaP/Tdap/Td Immunization Discontinued 02/20/2015 TdaP Immunization Completed 02/20/2015 Meningococcal Immunization (ACWY) Aged Out No longer eligible based on patient's age to complete this topic Rotavirus Immunization Aged Out No lo nger eligible based on patient's age to complete this topic Procedures Procedure Name Priority Date/Time Associated Diagnosis Comments CBC WITH AUTO DIFFERENTIAL STAT 05/16/2024 12:19 PM JEWELRY SALES ASSOCIATE COMPLETE BLOOD COUNT (CBC) WITH DIFF STAT 05/16/2024 12:19 PM JEWELRY SALES ASSOCIATE CMP (COMPREHENSIVE METABOLIC PANEL) STAT 05/16/2024 12:19 PM JEWELRY SALES ASSOCIATE URINALYSIS REFLEX IF INDICATED BY ABNORMAL RESULTS STAT 05/16/2024 12:06 PM JEWELRY SALES ASSOCIATE CULTURE, URINE STAT 05/16/2024 12:06 PM JEWELRY SALES ASSOCIATE CAN SCREENING BILATERAL DIGITAL W CAD W NIDIA Routine 08/23/2020 2:40 PM CDT Encounter for mammogram to establish baseline mammogram from Last 3 Months or Most Recently Relevant to Health Maintenance Results * CBC with Auto Differential (05/16/2024 12:19 PM JEWELRY SALES ASSOCIATE) WBC 7.01 4.00 - 12.00 10(3)/mcL 05/16/2024 12:29 PM JEWELRY SALES ASSOCIATE [facility] RBC 4.89 3.80 - 5.30 10(6)/mcL 05/16/2024 12:29 PM JEWELRY SALES ASSOCIATE [facility] HEMOGLOBIN (HGB) 13.8 12.0 - 15.8 g/dL 05/16/2024 12:29 PM JEWELRY SALES ASSOCIATE [facility] HEMATOCRIT (HCT) 41.5 36.0 - 47.0 % 05/16/2024 12:29 PM JEWELRY SALES ASSOCIATE [facility] MCV 84.9 82.0 - 96.0 fL 05/16/2024 12:29 PM JEWELRY SALES ASSOCIATE [facility] MCH 28.2 26.0 - 34.0 pg 05/16/2024 12:29 PM JEWELRY SALES ASSOCIATE [facility] MCHC 33.3 31.0 - 36.0 g/dL 05/16/2024 12:29 PM JEWELRY SALES ASSOCIATE [facility] PLATELET COUNT 260 140 - 440 10(3)/mcL 05/16/2024 12:29 PM JEWELRY SALES ASSOCIATE [facility] RDW 12.1 11.8 - 15.5 % 05/16/2024 12:29 PM JEWELRY SALES ASSOCIATE [facility] MPV 9.7 9.7 - 12.4 fL 05/16/2024 12:29 PM JEWELRY SALES ASSOCIATE [facility] NEUTROPHILS 66.4 47.0 - 73.0 % 05/16/2024 12:29 PM JEWELRY SALES ASSOCIATE [facility] LYMPHOCYTES 25.2 18.0 - 42.0 % 05/16/2024 12:29 PM JEWELRY SALES ASSOCIATE [facility] MONOCYTES 5.1 4.0 - 12.0 % 05/16/2024 12:29 PM [facility] EOSINOPHILS 2.9 0.0 - 5.0 % 05/16/2024 12:29 PM [facility] BASOPHILS 0.4 0.0 - 1.0 % 05/16/2024 12:29 PM [facility] ABSOLUTE NEUTROPHILS 4.65 1.60 - 7.70 10(3)/[facility] 05/16/2024 12:29 PM [facility] ABSOLUTE LYMPHOCYTES 1.77 1.30 - 3.20 10(3)/[facility] 05/16/2024 12:29 PM [facility] ABSOLUTE MONOCYTES 0.36 0.20 - 1.00 10(3)/[facility] 05/16/2024 12:29 PM [facility] ABSOLUTE EOSINOPHIL 0.20 0.00 - 0.40 10(3)/[facility] 05/16/2024 12:29 PM [facility] ABSOLUTE BASOPHILS 0.03 0.00 - 0.10 10(3)/[facility] 05/16/2024 12:29 PM [facility] NRBC PER 100 WBC 0 05/16/19 12:29 PM [facility] Blood Venipuncture / Unknown 05/16/2024 12:19 PM JEWELRY SALES ASSOCIATE 05/16/2024 12:26 PM JEWELRY SALES ASSOCIATE Shameka Moody Page PAC HEMATOLOGY ORDERABLES Final Result [facility] [place] [address] * (ABNORMAL) CMP (Comprehensive Metabolic Panel) (05/16/2024 12:19 PM JEWELRY SALES ASSOCIATE) SODIUM 136 136 - 145 mmol/L 05/16/2024 12:46 PM [facility] POTASSIUM 4.0 3.5 - 5.1 mmol/L 05/16/2024 12:46 PM [facility] CHLORIDE 105 98 - 107 mmol/L 05/16/2024 12:46 PM [facility] CO2, VENOUS 23 22 - 30 mmol/L 05/16/2024 12:46 PM [facility] ANION GAP 12.0 <18.0 mmol/L 05/16/2024 12:46 PM [facility] GLUCOSE 282(H) 70 - 99 mg/dL 05/16/2024 12:46 PM [facility] BUN 14 10 - 20 mg/dL 05/16/2024 12:46 PM [facility] CREATININE, BLOOD 0.84 0.60 - 1.00 mg/dL 05/16/2024 12:46 PM [facility] BUN/CREATININE RATIO 17 12 - 20 ratio 05/16/2024 12:46 PM [facility] TOTAL PROTEIN 6.9 6.0 - 8.0 g/dL 05/16/2024 12:46 PM [facility] ALBUMIN 3.7 3.5 - 5.0 g/dL 05/16/2024 12:46 PM [facility] A/G RATIO 1.2 1.0 - 2.2 05/16/2024 12:46 PM [facility] CALCIUM 8.6(L) 8.7 - 10.5 mg/dL 05/16/2024 12:46 PM [facility] T BILI 0.5 0.2 - 1.2 mg/dL 05/16/2024 12:46 PM JEWELRY SALES ASSOCIATE [facility] SGOT (AST) 21 6 - 42 U/L 05/16/2024 12:46 PM JEWELRY SALES ASSOCIATE [facility] SGPT (ALT) 44 6 - 55 U/L 05/16/2024 12:46 PM [facility] ALKALINE PHOSPHATASE 169(H) 40 - 150 U/L 05/16/2024 12:46 PM JEWELRY SALES ASSOCIATE [facility] GFR, ESTIMATED >60 >=60 05/16/2024 12:46 PM JEWELRY SALES ASSOCIATE [facility] Comment: Creatinine Clearance is the preferred criteria for selecting drug dose adjustments in renally impaired patients. The GFR is provided as additional pertinent clinical information. GFR is reported in mL/min/1.73 sq m. Calculation based on the Chronic Kidney Disease Epidemiology Collaboration (CKD- EPI) equation refit without adjustment for race. GFR, EST. >60 >=60 025 12:46 PM JEWELRY SALES ASSOCIATE [facility] GFR, EST. NONAFRICAN >60 >=60 05/16/2024 12:46 PM JEWELRY SALES ASSOCIATE [facility] Blood Venipuncture / Unknown 05/16/2024 12:19 PM JEWELRY SALES ASSOCIATE 05/16/2024 12:26 PM JEWELRY SALES ASSOCIATE us Shameka Moody Page PAC CHEMISTRY ORDERABLES Final R esult [facility] [place] [address] * (ABNORMAL) URINALYSIS REFLEX IF INDICATED BY ABNORMAL RESULTS (05/16/2024 12:06 PM JEWELRY SALES ASSOCIATE) SPECIFIC GRAVITY 1.025 1.003 - 1.030 05/16/2024 2:02 PM [facility] URINE PH 5.0 5.0 - 9.0 05/16/2024 2:02 PM [facility] WBC ESTERASE 100 /uL(A) Negative 05/16/2024 2:02 PM JEWELRY SALES ASSOCIATE [facility] NITRITE Negative Negative 05/16/2024 2:02 PM JEWELRY SALES ASSOCIATE [facility] PROTEIN, RANDOM URINE 30 mg/dL(A) Negative 05/16/2024 2:02 PM JEWELRY SALES ASSOCIATE [facility] URINE GLUCOSE, QUAL 100 mg/dL(A) Negative 05/16/2024 2:02 PM JEWELRY SALES ASSOCIATE [facility] URINE KETONES 5 mg/dL(A) Negative 05/16/2024 2:02 PM JEWELRY SALES ASSOCIATE [facility] UROBILINOGEN 1 mg/dL(A) Normal mg/dL 05/16/2024 2:02 PM JEWELRY SALES ASSOCIATE [facility] URINE BLOOD 50 /uL(A) Negative parvez/ul 05/16/2024 2:02 PM JEWELRY SALES ASSOCIATE [facility] URINALYSIS COLOR Yellow 05/16/2024 2:02 PM JEWELRY SALES ASSOCIATE [facility] URINALYSIS CLARITY Clear 05/16/2024 2:02 PM JEWELRY SALES ASSOCIATE [facility] WBC (Urine) 6-10(A) Negative, 0-5 /hpf 05/16/2024 2:02 PM JEWELRY SALES ASSOCIATE [facility] URINE RBC'S 0-2 Negative, 0-2 /hpf 05/16/2024 2:02 PM JEWELRY SALES ASSOCIATE [facility] EPITHELIAL CELLS Occasional /lpf 05/16/2024 2:02 PM JEWELRY SALES ASSOCIATE [facility] BACTERIA, URINE Few(A) Negative /hpf 05/16/2024 2:02 PM JEWELRY SALES ASSOCIATE [facility] URINE MUCOUS Many 05/16/2024 2:02 PM JEWELRY SALES ASSOCIATE [facility] Urine URINE SPECIMEN COLLECTION, CLEAN CATCH / Unknown Non-Phlebotomy Collection / Unknown 05/16/2024 12:06 PM JEWELRY SALES ASSOCIATE 05/16/2024 1:25 PM JEWELRY SALES ASSOCIATE Christin Viera MD URINE ORDERABLES Final Result [facility] [place] [address] * Culture, Urine (05/16/2024 12:06 PM JEWELRY SALES ASSOCIATE) CULTURE RESULTS GROUP B STREPTOCOCCUS 05/17/2024 6:53 PM JEWELRY SALES ASSOCIATE [facility] Comment:DRUG OF CHOICE IS AM PICILLIN OR PENICILLIN Urine URINE SPECIMEN COLLECTION, CLEAN CATCH / Unknown Non-Phlebotomy Collection / Unknown 05/16/2024 12:06 PM JEWELRY SALES ASSOCIATE 05/16/2024 1:25 PM JEWELRY SALES ASSOCIATE us Christin Viera MD MICROBIOLOGY - GENERAL ORDERA BLES Final Result [facility] [address] [place] [address], [place] * CAN SCREENING BILATERAL DIGITAL W CAD W NIDIA (08/23/2020 2:40 PM CDT) Anatomical Region Laterality Modality breast Bilateral Mammography 08/23/2020 2:34 PM CDT Narrative 08/23/2020 4:58 PM CDT - CAN SCREENING BILATERAL DIGITAL W CAD W NIDIA BILATERAL DIGITAL SCREENING MAMMOGRAM 3D/2D WITH CAD WITH MEDIOLATERAL OBLIQUE CRANIOCAUDAL: 08/23/2020 The study was acquired using digital technology and interpreted from soft copy. Current study was also evaluated with ICAD version 7.2. 2D digital mammographic views, as well as 3D digital tomosynthesis were performed in the CC and MLO projections. CLINICAL: Routine screening. Patient has no complaints. No personal history of cancer. Maternal and paternal grandmother had breast cancer. Patient states the additional tissue of right axilla is chronic as of 18 years old. COMPARISONS: Comparison is made to exams dated: 01/18/2013 and 11/29/2010 [facility]. BREAST TISSUE:There are scattered fibroglandular densities in both breasts. FINDINGS: No significant masses, calcifications, or other findings are seen in either breast. There has been no significant interval change. IMPRESSION: BI-RAD 1 NEGATIVE There is no mammographic evidence of malignancy. A 1 year screening mammogram is recommended. The patient has been or will be contacted. The patient will be entered into a reminder system with a target due date of 1 year for her next screening exam. Electronically signed by: Saturnino haddad/penrad:08/23/2020 16:47:21 Information Security Manager: Geena Villa RT(R)(M), [facility] letter sent: Normal Exam Reading location: [place] BI-RADS: 1 Negative Procedure Note Saturnino Ley MD - 08/23/2020 - CAN SCREENING BILATERAL DIGITAL W CAD W NIDIA BILATERAL DIGITAL SCREENING MAMMOGRAM 3D/2D WITH CAD WITH MEDIOLATERAL OBLIQUE CRANIOCAUDAL: 08/23/2020 The study was acquired using digital technology and interpreted from soft copy. Current study was also evaluated with ICAD version 7.2. 2D digital mammographic views, as well as 3D digital tomosynthesis were performed in the CC and MLO projections. CLINICAL: Routine screening. Patient has no complaints. No personal history of cancer. Maternal and paternal grandmother had breast cancer. Patient states the additional tissue of right axilla is chronic as of 18 years old. COMPARISONS: Comparison is made to exams dated: 01/18/2013 and 11/29/2010 [facility]. BREAST TISSUE:There are scattered fibroglandular densities in both breasts. FINDINGS: No significant masses, calcifications, or other findings are seen in either breast. There has been no significant interval change. IMPRESSION: BI-RAD 1 NEGATIVE There is no mammographic evidence of malignancy. A 1 year screening mammogram is recommended. The patient has been or will be contacted. The patient will be entered into a reminder system with a target due date of 1 year for her next screening exam. Electronically signed by: Saturnino haddad/penrad:08/23/2020 16:47:21 Information Security Manager: Geena Villa RT(R)(M), [facility] letter sent: Normal Exam Reading location: [place] BI-RADS: 1 Negative Alla Chow APRN, CNP IMG MAMMO ORDERABLES F inal Result from Last 3 Months or Most Recently Relevant to Health Maintenance Insurance [place]ICA[place] Member Subscriber Plan / Payer (Ef fective 2024-Present) Name:Jacinta Sam Relation to Subscriber:Self Name:Jacinta Sam Payer ID:[id number] Group ID:Not on file Type:Not on file Address: [place] [phone] Advance Directives * Full Code (Latest Code Status on File) Date Activated Date Inactivated Comments 03/20/2015 5:52 PM 03/21/2015 5:22 PM Full Code: FULL ARREST: Attempt Resuscitation/CPR and use intubation and mechanical ventilation as indicated. PRE-ARREST: Use all measures to stabilize patient. Care Teams Hand Flatwork Finisher Relationship Specialty Start Date End Date Jose Yu MD [address] [place] [address] [address] PCP - General Finishing And Shipping Supervisor 05/05/22
[2024-07-26 19:41] VITALS: BP 122/66; PULSE 108; RESP 16; TEMP 36.6; O2SAT 96
[2024-07-26] MEDS: predniSONE 20 MG TABLET 40 MG PO (19:50)
[2024-07-26] MEDS: IPRATROPIUM BR 0.02% INH SOLN 0.5 MG/2.5 ML VIAL INHALATION (19:51)
[2024-07-26] MEDS: ALBUTEROL SULFATE NEB 2.5 MG/3 ML INH INHALATION (19:51)
[2024-07-26 20:18] VITALS: PULSE 98; RESP 20; O2SAT 99
== END 2024-07-26 20:35 | disposition home or self-care (01) ==
PROVIDERS: Emergency Provider Nurse Practitioner
DX: J45.901 Unspecified asthma with (acute) exacerbation (principal); R91.8 Other nonspecific abnormal finding of lung field; Z87.891 Personal history of nicotine dependence; E11.9 Type 2 diabetes mellitus without complications
CPT/HCPCS: 71046; 94640; 99203; G0463; J7512